=== PATIENT | female | born 1965 | race Caucasian/White ===

== ENCOUNTER → 2017-02-27 11:05 | Outpatient (CLI) | payer BC, SELFPAY | PROVIDERS: PCP Family Medicine; Visit Provider Family Medicine | DX: N39.0 Urinary tract infection, site not specified (principal) | CPT/HCPCS: 87086 ==

== ENCOUNTER → 2018-02-19 07:24 | Outpatient (CLI) | payer OTHER, BC, SELFPAY ==
[2018-02-20 10:58] LABS: Vitamin B12 463 pg/mL (232-1245); Vitamin D 25 Hydroxy 31.3 ng/mL (30.0-100.0)
== END ==
PROVIDERS: Visit Provider Nurse Practitioner Family
DX: R53.83 Other fatigue (principal)
CPT/HCPCS: 36415; 82607; 82652

== ENCOUNTER → 2018-04-16 15:18 | Outpatient (CLI) | payer OTHER, BC, SELFPAY ==
--- NOTE | 2018-04-16 15:23 | XR_ITS ---
XR chest 2V HISTORY: ITS.REASON: WHEEZING ORDERING PHYSICIAN: Samreen Chopra MD PATIENT AGE: 52 years COMPARISON: None FINDINGS: The cardiomediastinal silhouette and pulmonary vascularity are within normal limits. The lungs are clear without infiltrates, suspicious nodules, or pleural effusions. No acute bony abnormalities. IMPRESSION: Negative chest, no acute finding
== END ==
PROVIDERS: PCP Family Medicine; Visit Provider Emergency Medicine
DX: R06.2 Wheezing (principal)
CPT/HCPCS: 71046

== ENCOUNTER → 2018-04-22 08:21 | Outpatient (CLI) | payer OTHER, BC, SELFPAY ==
[2018-04-22 09:20] LABS: Basophils % 0.8 % (0.1-2.0); Eosinophils # 0.2 K/mm3 (0.0-0.4); Hematocrit 40.2 % (37.0-47.0); Lymphocytes # 1.3 K/mm3 (0.7-4.5); Lymphocytes % 29.3 % (10-50); Mean Corpuscular HGB Conc 32.2 g/dL (31.8-35.4); Mean Corpuscular Hemoglobin 30.3 pg (27.0-31.2); Mean Corpuscular Volume 94.1 fl (81-99); Monocytes # 0.2 K/mm3 (0.1-1.0); Monocytes % 5.3 % (1.7-9.3); Neutrophils # 2.5 K/mm3 (1.8-7.8); Neutrophils % 59.5 % (37.0-80.0); Platelet Count 193 K/mm3 (142-424); Red Blood Count 4.27 M/mm3 (4.20-5.40); Red Cell Distribution Width 13.5 % (11.5-17.5); White Blood Count 4.3 K/mm3 (4.8-10.8)
[2018-04-22 09:48] LABS: Blood Urea Nitrogen 19 mg/dL (7-18); Calcium 9.1 mg/dL (8.5-10.1); Carbon Dioxide 26 mmol/L (21.0-32.0); Chloride 105 mmol/L (98-107); Creatinine,Serum 0.63 mg/dL (0.55-1.02); Estimated Glomerular Filt Rate 100 ml/min (>60); GFR (African American) 121 ML/MIN (>60); Glucose 80 mg/dL (74-106); Sodium 142 mmol/L (136-145)
[2018-04-22 10:24] LABS: HCG Qualitative, Serum Negative (Negative)
== END ==
PROVIDERS: Visit Provider Nurse Practitioner Obstetrics & Gynecology
DX: Z01.818 Encounter for other preprocedural examination (principal); R87.613 High grade squamous intraepithelial lesion on cytologic smear of cervix (HGSIL)
CPT/HCPCS: 36415; 80048; 84703; 85025

== ENCOUNTER 2018-05-20 09:23 | Outpatient (CLI) | payer OTHER, BC, SELFPAY ==
[2018-05-20] VITALS (7 sets, daily range): BP systolic 87–132; BP diastolic 33–75; PULSE 56–78; RESP 18; TEMP 36.6; O2SAT 97–100; BMI 26.6
== END 2018-05-20 13:00 | disposition home or self-care (01) ==
LOC: INF 09:24
PROVIDERS: PCP Emergency Medicine; Visit Provider Emergency Medicine
DX: E86.0 Dehydration (principal)
CPT/HCPCS: 96360; 96361

== ENCOUNTER → 2018-06-28 10:18 | Outpatient (CLI) | payer OTHER, BC, SELFPAY | PROVIDERS: PCP Family Medicine; Visit Provider Family Medicine | DX: G47.10 Hypersomnia, unspecified (principal); R06.83 Snoring | CPT/HCPCS: 95806 ==

== ENCOUNTER → 2018-07-29 11:34 | Outpatient (CLI) | payer OTHER, BC, SELFPAY ==
[2018-07-29 13:08] LABS: Ferritin 85 ng/mL (8-388)
[2018-07-30 07:18] LABS: Iron 82 ug/dL (27-159); UIBC 242 ug/dL (131-425)
[2018-07-30 13:14] LABS: Albumin 3.8 g/dL (2.9-4.4); Alpha-1-Globulin 0.2 g/dL (0.0-0.4); Alpha-2-Globulin 0.7 g/dL (0.4-1.0); Gamma Globulin 1.2 g/dL (0.4-1.8)
[2018-07-30 14:13] LABS: Immunoglobulin A, Qn 236 mg/dL (87-352); Immunoglobulin G, Qn 1027 mg/dL (700-1600)
[2018-07-30 16:26] LABS: Free Kappa Lt Chains 13.9 mg/L (3.3-19.4); Free Lambda Lt Chains 12.1 mg/L (5.7-26.3)
[2018-07-30 20:50] LABS: Immunoglobulin M, Qn 75 mg/dL (26-217); Iron Saturation 25 % (15-55)
== END ==
PROVIDERS: Visit Provider Internal Medicine Medical Oncology
DX: D64.9 Anemia, unspecified (principal)
CPT/HCPCS: 36415; 82728; 82784; 83540; 83550; 83883; 84155; 84165; 86334

== ENCOUNTER → 2018-11-17 15:27 | Outpatient (CLI) | payer SELFPAY ==
--- NOTE | 2018-11-17 15:30 | CT_ITS ---
PROCEDURE: CT HEART W CALCIUM SCORE CLINICAL HISTORY: SCREENING COMPARISON: No exams were available for comparison TECHNIQUE: Axial images obtained with sagittal and coronal reformats. All CT scans at the facility use one or more dose reduction, viz: automated exposure control, ma/kV adjustment per patient size (including targeted exams where dose is matched to indication, i.e. head), or iterative reconstruction technique. FINDINGS: Coronary artery calcium score is 13 indicating mild plaque burden with moderate cardiovascular disease risk. Incidental findings include a small amount of fluid in the superior recess of the pericardium and along the lower and posterior aspect of the pericardium IMPRESSION: Mild plaque burden with moderate cardiovascular disease risk Dictated by: Jere Zaman MD 11/18/2018 11:53 Electronically signed by Jere Zaman MD in [place] 11/19/2018 13:27
== END ==
PROVIDERS: PCP Family Medicine; Visit Provider Internal Medicine Cardiovascular Disease
DX: Z13.6 Encounter for screening for cardiovascular disorders (principal)
CPT/HCPCS: 75571

== ENCOUNTER → 2018-11-30 15:41 | Outpatient (CLI) | payer OTHER, SELFPAY ==
--- NOTE | 2018-11-30 15:56 | MM_ITS ---
PROCEDURE: MM DIG SCREENING MAMM BI W/CAD CLINICAL INDICATION: SCREENING There is a history of breast cancer in the patient's maternal grandmother and maternal great grandmother. COMPARISON: MAMMO SCREENING DIGITAL TOMOSYNTHESIS BILATERAL W CAD from 10/31/2015 MAMMO SCREENING DIGITAL TOMOSYNTHESIS BILATERAL W CAD from 11/14/2016 MAMMO SCREENING DIGITAL TOMOSYNTHESIS BILATERAL W CAD from 12/31/2017 TECHNIQUE: Standard CC and MLO images were obtained. R2 CAD reviewed. FINDINGS: Prominent somewhat heterogenic fibroglandular densities are seen in both breasts. There is no new or suspicious lesion in either breast and no suspicious microcalcifications. There are stable small nodes in both axilla. IMPRESSION: Moderate diffuse breast density with no suspicious lesions seen BI-RAD Category: 1 Negative FOLLOW-UP: 1YR 1 Year Follow-up (A letter has been sent to the patient regarding results of the study.) Dictated by: Dr. Asa Ponce MD 12/03/2018 09:[address] Asa Ponce MD in [place] 12/03/2018 09:28
== END ==
PROVIDERS: PCP Family Medicine; Visit Provider Nurse Practitioner Obstetrics & Gynecology
DX: Z12.31 Encounter for screening mammogram for malignant neoplasm of breast (principal)
CPT/HCPCS: 77067

== ENCOUNTER → 2019-03-29 10:36 | Outpatient (POV) | payer OTHER, SELFPAY | PROVIDERS: Visit Provider Dermatology | DX: Z00.00 Encounter for general adult medical examination without abnormal findings (principal) ==

== ENCOUNTER → 2019-05-25 11:22 | Outpatient (CLI) | payer OTHER, BC, SELFPAY ==
--- NOTE | 2019-05-25 11:28 | XR_ITS ---
PROCEDURE: XR KNEE LT 4V CLINICAL INDICATION: left knee pain Weightbearing views were performed. COMPARISON: [id number] KNEE-4 OR 5 VIEWS-LT from 08/18/2016 [id number] KNEE-4 OR 5 VIEWS-RT from 08/18/2016 FINDINGS: No fracture or dislocation. No lytic or blastic change. There is normal mineralization. Mild tricompartmental osteoarthritis is again noted. It is not significantly changed. Other findings:A small suprapatellar joint effusion is noted. IMPRESSION: Osteoarthritis with small joint effusion. Dictated by: Gino Hill 05/25/2019 12:14 Electronically signed by Gino Hill in [place] 05/25/2019 12:14
--- NOTE | 2019-05-25 11:28 | XR_ITS ---
PROCEDURE: XR KNEE RT 4V CLINICAL INDICATION: right knee pain Weightbearing views were performed. COMPARISON: [id number] KNEE-4 OR 5 VIEWS-LT from 08/18/2016 [id number] KNEE-4 OR 5 VIEWS-RT from 08/18/2016 FINDINGS: No fracture or dislocation. No lytic or blastic change. There is normal mineralization. There is mild osteoarthritis greatest at the lateral patellofemoral facet. The previously described lateral patellar subluxation is not present today. Other findings:A small suprapatellar joint effusion is noted. IMPRESSION: Mild osteoarthritis with joint effusion appearance similar to previous exam. Dictated by: Gino Hill 05/25/2019 12:17 Electronically signed by Gino Hill in [place] 05/25/2019 12:17
== END ==
PROVIDERS: PCP Family Medicine; Visit Provider Orthopaedic Surgery
DX: M25.562 Pain in left knee (principal); M25.561 Pain in right knee
CPT/HCPCS: 73564

== ENCOUNTER → 2019-09-03 11:24 | Outpatient (CLI) | payer OTHER, BC, SELFPAY ==
[2019-09-03 11:56] LABS: White Blood Count 4.6 K/mm3 (4.8-10.8)
[2019-09-03 11:57] LABS: Basophils % 0.8 % (0.1-2.0); Eosinophils # 0.3 K/mm3 (0.0-0.4); Eosinophils % 5.9 % (0.1-12.0); Hematocrit 41.1 % (37.0-47.0); Hemoglobin 13.7 g/dL (12.2-16.2); Lymphocytes # 1.2 K/mm3 (0.7-4.5); Lymphocytes % 26.8 % (10-50); Mean Corpuscular HGB Conc 33.3 g/dL (31.8-35.4); Mean Corpuscular Hemoglobin 30.9 pg (27.0-31.2); Mean Corpuscular Volume 92.6 fl (81-99); Mean Platelet Volume 7.7 fl (7.4-10.4); Monocytes # 0.2 K/mm3 (0.1-1.0); Monocytes % 4.8 % (1.7-9.3); Neutrophils # 2.8 K/mm3 (1.8-7.8); Neutrophils % 61.7 % (37.0-80.0); Platelet Count 210 K/mm3 (142-424); Red Blood Count 4.44 M/mm3 (4.20-5.40)
[2019-09-03 12:28] LABS: Erythrocyte Sedimentation Rate 24 mm/hr (0-30)
[2019-09-03 12:29] LABS: Uric Acid 5.7 mg/dl (2.5-6.2)
[2019-09-03 12:34] LABS: C-Reactive Protein 1.5 mg/L (0-4)
[2019-09-06 06:38] LABS: RA Latex Turbid. <10.0 IU/mL (0.0-13.9)
[2019-09-06 06:46] LABS: Antinuclear Antibodies, IFA Positive (.)
== END ==
PROVIDERS: Visit Provider Family Medicine
DX: M25.50 Pain in unspecified joint (principal)
CPT/HCPCS: 36415; 84550; 85025; 85651; 86038; 86140; 86431

== ENCOUNTER → 2019-12-07 08:51 | Outpatient (CLI) | payer OTHER, BC, SELFPAY ==
--- NOTE | 2019-12-07 08:51 | MM_ITS ---
PROCEDURE: MM DIG SCREENING MAMM BI W/CAD Digital Breast Tomosynthesis Included CLINICAL INDICATION: Routine Screening Mammogram There is a history of breast cancer patient's maternal grandmother and maternal great grandmother. COMPARISON: MG MAMMO SCREENING DIGITAL TOMOSYNTHESIS BILATERAL W CAD from 11/14/2016 MG MAMMO SCREENING DIGITAL TOMOSYNTHESIS BILATERAL W CAD from 12/31/2017 MG MM DIG SCREENING MAMM BI W/CAD from 11/30/2018 TECHNIQUE: Standard CC and MLO images and 3D Tomosynthesis was obtained. R2 CAD reviewed. FINDINGS: Moderate scattered fibroglandular densities are seen throughout both breasts. There is a possible asymmetric lesion upper central portion right breast. This may have been present previously but is better seen with raciel views on the current exam. This could represent asymmetric glandular elements but recommend the patient return for spot compression views and ultrasound for additional evaluation. There are no suspicious microcalcifications. IMPRESSION: Moderate breast density with possible change in asymmetric lesion right breast BI-RAD Category: 0 Need Additional Imaging Evaluation FOLLOW-UP: IMM Immediate Follow-up Recommended (A letter has been sent to the patient regarding results of the study.) Dictated by: Dr. Asa Ponce MD 12/09/2019 07:59 Dr. Asa Ponce MD in [place] 12/09/2019 07:59
== END ==
PROVIDERS: PCP Family Medicine; Visit Provider Nurse Practitioner Obstetrics & Gynecology
DX: Z12.31 Encounter for screening mammogram for malignant neoplasm of breast (principal)
CPT/HCPCS: 77063; 77067

== ENCOUNTER → 2019-12-14 10:40 | Outpatient (CLI) | payer OTHER, BC, SELFPAY ==
--- NOTE | 2019-12-14 10:41 | MM_ITS ---
PROCEDURE: MM DIG MAMM DX UNILAT RT CAD Digital Breast Tomosynthesis Included CLINICAL INDICATION: abnormal xmg COMPARISON: MG MAMMO SCREENING DIGITAL TOMOSYNTHESIS BILATERAL W CAD from 12/31/2017 MG MM DIG SCREENING MAMM BI W/CAD from 11/30/2018 MG MM DIG SCREENING MAMM BI W/CAD from 12/07/2019 US US BREAST RT COMPLETE from 12/14/2019 TECHNIQUE: Standard CC and MLO images and 3D Tomosynthesis was obtained. R2 CAD reviewed. FINDINGS: Questionable asymmetric glandular elements versus developing mass appears to press out on the spot compression MLO and CC views. No definite suspicious lesion is identified. Ultrasound performed the same date showed no normal cystic or solid mass. IMPRESSION: Negative problem solving views and negative targeted ultrasound and recommend the patient continue with yearly screening mammography BI-RAD Category: 1 Negative FOLLOW-UP: 1YR 1 Year Follow-up (A letter has been sent to the patient regarding results of the study.) Dictated by: Dr. Asa Ponce MD 12/17/2019 19:20 Dr. Asa Ponce MD in [place] 12/17/2019 19:20
--- NOTE | 2019-12-14 10:41 | US_ITS ---
PROCEDURE: US BREAST RT COMPLETE CLINICAL INDICATION: abnormal xmg COMPARISON: No exams were available for comparison FINDINGS: Scanning of the right breast in the area of possible asymmetric developing density shows normal appearing echogenicity with no evidence of abnormal cystic or solid mass or evidence of architectural distortion. There are couple normal appearing nodes in the axilla. IMPRESSION: Negative targeted ultrasound, continue with yearly screening mammography Dictated by: Dr. Asa Ponce MD 12/17/2019 19:22 Dr. Asa Ponce MD in [place] 12/17/2019 19:22
== END ==
PROVIDERS: PCP Family Medicine; Visit Provider Nurse Practitioner Obstetrics & Gynecology
DX: R92.8 Other abnormal and inconclusive findings on diagnostic imaging of breast (principal)
CPT/HCPCS: 76641; 77061; 77065; G0279

== ENCOUNTER → 2020-01-20 08:09 | Outpatient (CLI) | payer OTHER, BC, SELFPAY ==
[2020-01-20 09:56] LABS: Coronavirus 19 IgG Antibody Negative (Negative); Coronavirus 19 IgM Antibody Negative (Negative)
== END ==
PROVIDERS: Visit Provider Anesthesiology
DX: Z03.818 Encounter for observation for suspected exposure to other biological agents ruled out (principal)
CPT/HCPCS: 86328

== ENCOUNTER → 2020-03-05 07:41 | Outpatient (CLI) | payer OTHER, BC, SELFPAY ==
[2020-03-09 12:17] LABS: F001-IgE Egg White <0.10 kU/L (Class 0); F002-IgE Milk <0.10 kU/L (Class 0); F003-IgE Codfish <0.10 kU/L (Class 0); F004-IgE Wheat <0.10 kU/L (Class 0); F013-IgE Peanut <0.10 kU/L (Class 0); F014-IgE Soybean <0.10 kU/L (Class 0); F024-IgE Shrimp <0.10 kU/L (Class 0); F256-IgE Walnut <0.10 kU/L (Class 0); F338-IgE Scallop <0.10 kU/L (Class 0)
[2020-03-09 12:45] LABS: F010-IgE Sesame Seed 0.12 kU/L (Class 0/I)
== END ==
PROVIDERS: Visit Provider Internal Medicine Gastroenterology
DX: T78.1XXA Other adverse food reactions, not elsewhere classified, initial encounter (principal)
CPT/HCPCS: 86003; 86008

== ENCOUNTER → 2020-06-01 06:58 | Outpatient (CLI) | payer OTHER, BC, SELFPAY ==
[2020-06-01 07:12] LABS: Basophils % 0.9 % (0.1-2.0); Eosinophils # 0.2 K/mm3 (0.0-0.4); Eosinophils % 3.9 % (0.1-12.0); Hematocrit 41.3 % (37.0-47.0); Hemoglobin 13.9 g/dL (12.2-16.2); Lymphocytes # 1.7 K/mm3 (0.7-4.5); Lymphocytes % 34.8 % (10-50); Mean Corpuscular HGB Conc 33.6 g/dL (31.8-35.4); Mean Corpuscular Hemoglobin 30.1 pg (27.0-31.2); Mean Corpuscular Volume 89.4 fl (81-99); Mean Platelet Volume 8.1 fl (7.4-10.4); Monocytes # 0.3 K/mm3 (0.1-1.0); Monocytes % 5.4 % (1.7-9.3); Neutrophils # 2.6 K/mm3 (1.8-7.8); Platelet Count 219 K/mm3 (142-424); Red Blood Count 4.61 M/mm3 (4.20-5.40); Red Cell Distribution Width 13.1 % (11.5-17.5); White Blood Count 4.8 K/mm3 (4.8-10.8)
[2020-06-01 07:49] LABS: Chloride 104 mmol/L (98-107); Potassium 3.8 mmoL/L (3.5-5.1); Sodium 141 mmol/L (136-145)
[2020-06-01 07:52] LABS: Alanine Aminotransferase 19 U/L (12-78); Albumin Level 4.4 g/dl (3.5-5.0); Albumin/Globulin Ratio 1.6 (1.1-1.8); Alkaline Phosphatase 76 U/L (38-126); Anion Gap 13.8 mEq/L (5-15); Aspartate Amino Transferase 23 U/L (14-36); Bilirubin,Total 0.5 mg/dl (0.2-1.3); Blood Urea Nitrogen 22 mg/dl (7-17); Calcium 9.7 mg/dl (8.4-10.2); Carbon Dioxide 27 mmol/L (22.0-30.0); Cholesterol 205 mg/dl (140-200); Estimated Glomerular Filt Rate 47 ml/min (>60); GFR (African American) 57 ML/MIN (>60); Globulin 2.7 g/dL (1.3-3.2); Glucose 91 mg/dl (74-100); Total Protein,Serum 7.1 g/dl (6.3-8.2); Triglycerides 99 mg/dl (30-150); VLDL Cholesterol 20 mg/dL (0-40)
[2020-06-01 07:53] LABS: Chol/HDL Ratio 3.3 (1-3.5); HDL Cholesterol 63 mg/dl (40-60)
[2020-06-01 08:03] LABS: Direct LDL Cholesterol 105.51 mg/dL (100-129)
[2020-06-01 08:23] LABS: Thyroid Stimulating Hormone 3.18 uIU/mL (0.465-4.68)
== END ==
PROVIDERS: Visit Provider Family Medicine
DX: R42 Dizziness and giddiness (principal); I10 Essential (primary) hypertension; R60.0 Localized edema
CPT/HCPCS: 36415; 80053; 80061; 84443; 85025

== ENCOUNTER → 2020-06-13 07:28 | Outpatient (CLI) | payer OTHER, BC, SELFPAY ==
--- NOTE | 2020-06-13 | CA_ITS ---
APPROVED REPORT EXAM: Comprehensive 2D, Doppler, and color-flow Echocardiogram Informatics Application Analyst: Elaina Pedroza RT(R) Ht: 5 ft 8 in Wt: 185lbs BSA: 1.98 BP: 128/86 mmHg Indications: Edema, arrhythmia, cardiac CT showed mild plaque with moderate CV risk 2D Dimensions LVOT 2.10 cm (M/F) 1.5-2.5 LA Volume 27.10 mL LA Volume Index 13.75 mL/m2 (M/F) 16-34 M-Mode Dimensions RVDd 3.15 cm (0.9-2.6) LA Diam 3.32 cm (1.9-4.0) LVDd 4.70 cm (3.5-5.7) Ao Diam 3.16 cm (2.0-3.7) LVDs 3.53 cm (3.5-5.7) IVSd 0.61 cm (0.6-1.1) PWd 0.91 cm (0.6-1.1) EF (Teich) 49.30% FS 24.90% EDV (Teich) 102.40 mL ESV (Teich) 51.90 mL LV Diastology E Decel Time 173.00 (160-240 msec) E/A Ratio 0.6 MED E' 4.80 (< 7 cm/sec) E'/MED E' Ratio 10.98 (>14) LAT E' 15.00 (<10 cm/sec) E/LAT E' Ratio 3.51 (>14) Mitral Valve MV E Max Tian. 53.00 (40-130 cm/s) MV A Velocity 92.00 (40-130 cm/s) E/A Ratio 0.57 MV Decel. Time 173.00 (160-240 ms) MV PHT 51.00 ms Left Ventricle Left atrium is mildly enlarged, left ventricle is normal size, left ventricle wall thickness is upper limit of normal size, there is preserved left ventricular systolic function, visually estimated ejection fraction 55% with no regional wall motion abnormality, Doppler evidence of impaired LV relaxation, without tissue Doppler indication of raise left atrial pressure. Right Ventricle Right atrium is normal size, right ventricle is qualitatively mildly enlarged with normal contractility. Aortic Valve Aortic valve is grossly normal, there is no aortic stenosis or aortic insufficiency. Mitral Valve Mitral valve is grossly normal, there is trace mitral regurgitation. Tricuspid Valve Tricuspid grossly normal, there is trace tricuspid regurgitation, tricuspid regurgitation jet velocity is inadequate for calculation of the right ventricular systolic pressure. Pulmonic Valve Pulmonic valve is poorly visualized. Great Vessels Aortic root is normal size. Pericardium No significant pericardial effusion noted. Conclusion 1. Mildly enlarged left atrium normal left ventricular size, visually estimated ejection fraction 55% with no regional wall motion abnormality, Doppler evidence of impaired LV relaxation seen. 2. Mildly enlarged right ventricle with normal contractility. 3. Trace mitral and tricuspid regurgitation. 4. No significant pericardial effusion noted. Electronically signed by : Finn Ayon, 06/14/2020 13:28:56
== END ==
PROVIDERS: PCP Family Medicine; Visit Provider Family Medicine
DX: R60.9 Edema, unspecified (principal); I49.9 Cardiac arrhythmia, unspecified; R94.39 Abnormal result of other cardiovascular function study
CPT/HCPCS: 93306

== ENCOUNTER → 2020-06-15 15:07 | Outpatient (CLI) | payer OTHER, BC, SELFPAY | PROVIDERS: PCP Family Medicine; Visit Provider Family Medicine | DX: I49.9 Cardiac arrhythmia, unspecified (principal) | CPT/HCPCS: 93225; 93226 ==

== ENCOUNTER → 2020-06-22 15:25 | Outpatient (CLI) | payer OTHER, BC, SELFPAY ==
--- NOTE | 2020-06-22 15:27 | US_ITS ---
PROCEDURE: US TRANSVAGINAL CLINICAL INDICATION: pelvic pain COMPARISON: No exams were available for comparison FINDINGS: UTERUS: 7cm x 5cmx 4cm with a combined endometrial thickness of 3.3mm LEFT OVARY: [id number] with a volume of 1.1ml. RIGHT OVARY: [id number] with a volume of 0.8ml. There is a small amount fluid within the endometrium measuring 3 mm in thickness. There is a nabothian cyst at 13 mm. Small right ovarian cyst at 12 mm. No cul-de-sac fluid. IMPRESSION: Prominent nabothian cyst with a small amount fluid in the endometrium and a small right ovarian cyst Dictated by: Jere Zaman MD 06/22/2020 16:34 Jere Zaman MD in [place] 06/22/2020 16:34
== END ==
PROVIDERS: PCP Family Medicine; Visit Provider Nurse Practitioner Obstetrics & Gynecology
DX: R10.2 Pelvic and perineal pain (principal)
CPT/HCPCS: 76830

== ENCOUNTER → 2020-07-03 13:25 | Outpatient (CLI) | payer OTHER, BC, SELFPAY ==
--- NOTE | 2020-07-03 14:16 | CA_ITS ---
APPROVED REPORT Exam: Exercise Treadmill Technologist: Bhakti Noble, Ht: 5 ft 8 in Wt: 189 lbs BSA: 1.99 m2 HR: 57 bpm BP: 144/82 mmHg Medical History Medications: Omeprazole,,,,, Aspirin,,,,, Citalopram,,,,, Crestor,,,,, ZYRTEC,,,,, PropANOLOL,,,,, Aldactone,,,,, Stress Test Details Test: Edouard HR Resting HR: 62 bpm Max Heart Rate (APMHR): 166.484932 bpm Max HR Achieved: 138 bpm Target HR (85% APMHR): 141.953804 bpm % of APMHR: 83.13 Recovery HR: 76 bpm BP Resting BP: 137/83 mmHg Max BP: 164/84 mmHg Recovery BP: 124.0/74.0 mmHg ECG Resting ECG: NSR, normal Clinical Exercise duration: 08:04 min Highest Stage Achieved: Exercise capacity: 10.1 METs Stress ECG Conclusion Exercised 8:04 on Edouard Protocol Max HR: 138 % of PM: 83% Max BP: 164/84 MET's: 10.1 Test stopped due to: SOA, dizziness Symptoms: SOA, dizziness Arrhythmias/Ectopy: Occ isolated PVC. ST-T Changes: 0.5mm upsloping ST depression laterally. Conclusion: within normal GXT. Blunted HR on Propranolol. GXT only (no imaging). Test Summary RECOVERY 01:00 0.0 0.0 103 . 164/ 84 . Stop exercise at 08:04 REST 03:53 0.0 0.0 62 . 137/ 83 . . Stage 1 01:00 10.0 1.7 87 . . . . Stage 1 02:00 10.0 1.7 105 . . . . Stage 1 03:00 10.0 1.7 108 . 135/ 80 . . Stage 2 01:00 12.0 2.5 117 . . . . Stage 2 02:00 12.0 2.5 125 . . . . Stage 2 03:00 12.0 2.5 129 . 140/ 76 . . Stage 3 01:00 14.0 3.4 135 . . . . Stage 3 02:00 14.0 3.4 137 . . . . Stage 3 02:04 14.0 3.4 138 . . . Stop exercise at 08:04 RECOVERY 01:00 0.0 0.0 103 . 164/ 84 . . RECOVERY 02:00 0.0 0.0 79 . 164/ 84 . . RECOVERY 03:00 0.0 0.0 73 . 153/ 78 . . RECOVERY 04:00 0.0 0.0 78 . 131/ 78 . . RECOVERY 05:00 0.0 0.0 75 . 124/ 74 . . RECOVERY 05:17 0.0 0.0 77 . 124/ 74 . . Electronically signed by : Finn Ayon, 07/03/2020 21:34:32
== END ==
PROVIDERS: PCP Family Medicine; Visit Provider Internal Medicine Cardiovascular Disease
DX: R06.00 Dyspnea, unspecified (principal); I51.7 Cardiomegaly; R00.2 Palpitations
CPT/HCPCS: 93017

== ENCOUNTER → 2020-07-05 08:14 | Outpatient (CLI) | payer OTHER, BC, SELFPAY ==
[2020-07-05 08:28] LABS: Anion Gap 9.2 mEq/L (5-15); Blood Urea Nitrogen 14 mg/dl (7-17); Calcium 9.2 mg/dl (8.4-10.2); Carbon Dioxide 29 mmol/L (22.0-30.0); Chloride 106 mmol/L (98-107); Estimated Glomerular Filt Rate 75 ml/min (>60); GFR (African American) 90 ML/MIN (>60); Glucose 96 mg/dl (74-100); Magnesium 2.2 mg/dl (1.6-2.3); Potassium 4.2 mmoL/L (3.5-5.1); Sodium 140 mmol/L (136-145)
== END ==
PROVIDERS: Visit Provider Internal Medicine Cardiovascular Disease
DX: I25.10 Atherosclerotic heart disease of native coronary artery without angina pectoris (principal); R06.00 Dyspnea, unspecified; R00.2 Palpitations; I49.8 Other specified cardiac arrhythmias; I51.7 Cardiomegaly; R60.0 Localized edema; G47.33 Obstructive sleep apnea (adult) (pediatric)
CPT/HCPCS: 80048; 83735

== ENCOUNTER → 2020-07-27 08:43 | Outpatient (CLI) | payer OTHER, BC, SELFPAY ==
[2020-07-27 09:11] LABS: Chloride 105 mmol/L (98-107); Sodium 141 mmol/L (136-145)
[2020-07-27 09:14] LABS: Blood Urea Nitrogen 18 mg/dl (7-17); Calcium 9.3 mg/dl (8.4-10.2); Carbon Dioxide 28 mmol/L (22.0-30.0); Estimated Glomerular Filt Rate 75 ml/min (>60); GFR (African American) 90 ML/MIN (>60); Glucose 95 mg/dl (74-100)
== END ==
PROVIDERS: Visit Provider Internal Medicine Cardiovascular Disease
DX: I10 Essential (primary) hypertension (principal)
CPT/HCPCS: 80048

== ENCOUNTER → 2020-08-17 20:07 | Outpatient (CLI) | payer OTHER, BC, SELFPAY | PROVIDERS: PCP Family Medicine; Visit Provider Nurse Practitioner Family | DX: G47.30 Sleep apnea, unspecified (principal); G47.8 Other sleep disorders; R09.02 Hypoxemia | CPT/HCPCS: 95810 ==

== ENCOUNTER → 2020-09-05 09:40 | Outpatient (CLI) | payer OTHER, BC, SELFPAY ==
[2020-09-05 10:37] LABS: Anion Gap 13.7 mEq/L (5-15); Blood Urea Nitrogen 20 mg/dl (7-17); Calcium 9.4 mg/dl (8.4-10.2); Carbon Dioxide 25 mmol/L (22.0-30.0); Chloride 105 mmol/L (98-107); Estimated Glomerular Filt Rate 65 ml/min (>60); GFR (African American) 79 ML/MIN (>60); Glucose 95 mg/dl (74-100); Potassium 4.7 mmoL/L (3.5-5.1); Sodium 139 mmol/L (136-145)
[2020-09-05 10:47] LABS: NT Pro Brain Natriuretic Pep. 233 pg/mL (0-125)
== END ==
PROVIDERS: Visit Provider Internal Medicine Cardiovascular Disease
DX: R06.00 Dyspnea, unspecified (principal); R00.2 Palpitations; R60.0 Localized edema; I25.10 Atherosclerotic heart disease of native coronary artery without angina pectoris; M79.10 Myalgia, unspecified site; G47.33 Obstructive sleep apnea (adult) (pediatric)
CPT/HCPCS: 36415; 80048; 83880

== ENCOUNTER → 2020-09-10 15:48 | Outpatient (CLI) | payer OTHER, BC, SELFPAY | PROVIDERS: PCP Family Medicine; Visit Provider Specialist | DX: G47.33 Obstructive sleep apnea (adult) (pediatric) (principal); G47.10 Hypersomnia, unspecified | CPT/HCPCS: 94762 ==

== ENCOUNTER → 2020-09-20 13:18 | Outpatient (CLI) | payer OTHER, BC, SELFPAY ==
--- NOTE | 2020-09-20 13:22 | XR_ITS ---
PROCEDURE: XR CHEST 2V CLINICAL HISTORY: nocturnal hypoxemia COMPARISON: CR CXR2V XR chest 2V from 04/16/2018 FINDINGS: The cardiomediastinal silhouette and pulmonary vascularity are within normal limits. The lungs are clear without infiltrates, suspicious nodules, or pleural effusions. No acute bony abnormalities. IMPRESSION: No acute findings. Dictated by: Jere Zaman MD 09/20/2020 13:33 Jere Zaman MD in [place] 09/20/2020 13:33
== END ==
PROVIDERS: PCP Family Medicine; Visit Provider Nurse Practitioner Family
DX: G47.36 Sleep related hypoventilation in conditions classified elsewhere (principal); G47.33 Obstructive sleep apnea (adult) (pediatric); G47.34 Idiopathic sleep related nonobstructive alveolar hypoventilation; R00.2 Palpitations; I49.8 Other specified cardiac arrhythmias; I51.7 Cardiomegaly
CPT/HCPCS: 71046

== ENCOUNTER → 2020-10-08 15:28 | Outpatient (CLI) | payer OTHER, BC, SELFPAY | PROVIDERS: PCP Family Medicine; Visit Provider Nurse Practitioner Family | DX: G47.33 Obstructive sleep apnea (adult) (pediatric) (principal); G47.34 Idiopathic sleep related nonobstructive alveolar hypoventilation; I49.8 Other specified cardiac arrhythmias; I51.7 Cardiomegaly; R00.2 Palpitations | CPT/HCPCS: 94060; 94726; 94729 ==

== ENCOUNTER → 2020-10-23 05:00 | Outpatient (CLI) | payer OTHER, BC, SELFPAY ==
[2020-10-24 12:41] LABS: Chloride 107 mmol/L (98-107); Potassium 4.3 mmoL/L (3.5-5.1); Sodium 142 mmol/L (136-145)
[2020-10-24 12:44] LABS: Anion Gap 15.3 mEq/L (5-15); Blood Urea Nitrogen 18 mg/dl (7-17); Calcium 9.4 mg/dl (8.4-10.2); Carbon Dioxide 24 mmol/L (22.0-30.0); Estimated Glomerular Filt Rate 65 ml/min (>60); GFR (African American) 79 ML/MIN (>60); Glucose 96 mg/dl (74-100)
[2020-10-24 12:53] LABS: NT Pro Brain Natriuretic Pep. 188 pg/mL (0-125)
== END ==
PROVIDERS: Visit Provider Internal Medicine Cardiovascular Disease
DX: R06.02 Shortness of breath (principal); I25.10 Atherosclerotic heart disease of native coronary artery without angina pectoris; I50.9 Heart failure, unspecified; R60.9 Edema, unspecified; G47.33 Obstructive sleep apnea (adult) (pediatric)
CPT/HCPCS: 80048; 83880

== ENCOUNTER → 2020-11-02 13:22 | Outpatient (CLI) | payer OTHER, BC, SELFPAY | PROVIDERS: Visit Provider Specialist | DX: G47.10 Hypersomnia, unspecified (principal) | CPT/HCPCS: 36415 ==

== ENCOUNTER → 2020-11-13 08:58 | Outpatient (CLI) | payer OTHER, BC, SELFPAY ==
[2020-11-13 21:21] LABS: Chloride 106 mmol/L (98-107); Potassium 4.1 mmoL/L (3.5-5.1); Sodium 141 mmol/L (136-145)
[2020-11-13 21:24] LABS: Anion Gap 17.1 mEq/L (5-15); Blood Urea Nitrogen 17 mg/dl (7-17); Carbon Dioxide 22 mmol/L (22.0-30.0); Estimated Glomerular Filt Rate 65 ml/min (>60); GFR (African American) 79 ML/MIN (>60)
[2020-11-13 21:25] LABS: Calcium 9.5 mg/dl (8.4-10.2); Glucose 97 mg/dl (74-100)
[2020-11-13 21:34] LABS: NT Pro Brain Natriuretic Pep. 131 pg/mL (0-125)
== END ==
PROVIDERS: Visit Provider Internal Medicine Cardiovascular Disease
DX: R06.02 Shortness of breath (principal); R00.2 Palpitations; I25.10 Atherosclerotic heart disease of native coronary artery without angina pectoris; R60.9 Edema, unspecified
CPT/HCPCS: 36415; 80048; 83880

== ENCOUNTER → 2020-11-13 09:13 | Outpatient (POV) | payer OTHER, BC, SELFPAY | PROVIDERS: Visit Provider Dermatology | DX: Z00.00 Encounter for general adult medical examination without abnormal findings (principal) ==

== ENCOUNTER → 2020-12-27 08:35 | Outpatient (CLI) | payer OTHER, BC, SELFPAY ==
--- NOTE | 2020-12-27 08:43 | MR_ITS ---
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 FINDINGS: No midline shift, mass effect, intracranial hemorrhage, or hydrocephalus is evident. No evidence of acute infarction. The cerebellopontine angles, cerebellum, and brainstem have an unremarkable appearance. There are a few small T2 white matter hyperintensities which are nonspecific. These do not enhance or demonstrate restricted diffusion. No enhancing lesions. No evidence of metastatic disease. The pituitary, optic chiasm, corpus callosum, and craniocervical junction have an unremarkable appearance. No mastoid effusion or sinus air-fluid level. IMPRESSION: Essentially negative MRI of the brain without and with contrast No evidence of metastatic disease There are few T2 white matter hyperintensities which are nonspecific and may be due to small ischemic gliotic foci Dictated by: Jere Zaman MD 12/28/2020 16:58 Jere Zaman MD in [place] 12/28/2020 16:58
== END ==
PROVIDERS: PCP Family Medicine; Visit Provider Nurse Practitioner Family
DX: G47.10 Hypersomnia, unspecified (principal); G47.50 Parasomnia, unspecified; R68.89 Other general symptoms and signs; Z85.41 Personal history of malignant neoplasm of cervix uteri
CPT/HCPCS: 70553; 95816; 95819; A9576

== ENCOUNTER → 2021-01-11 08:32 | Outpatient (CLI) | payer OTHER, BC, SELFPAY ==
[2021-01-11 09:24] LABS: Anion Gap 11.4 mEq/L (5-15); Blood Urea Nitrogen 17 mg/dl (7-17); Calcium 9.3 mg/dl (8.4-10.2); Carbon Dioxide 30 mmol/L (22.0-30.0); Chloride 103 mmol/L (98-107); Estimated Glomerular Filt Rate 65 ml/min (>60); GFR (African American) 79 ML/MIN (>60); Glucose 96 mg/dl (74-100); Potassium 4.4 mmoL/L (3.5-5.1); Sodium 140 mmol/L (136-145)
== END ==
PROVIDERS: Visit Provider Nurse Practitioner Family
DX: R06.02 Shortness of breath (principal); R07.89 Other chest pain; R00.2 Palpitations; I25.10 Atherosclerotic heart disease of native coronary artery without angina pectoris; R60.9 Edema, unspecified; G47.33 Obstructive sleep apnea (adult) (pediatric)
CPT/HCPCS: 36415; 80048

== ENCOUNTER → 2021-02-12 14:59 | Outpatient (CLI) | payer OTHER, BC, SELFPAY ==
--- NOTE | 2021-02-12 15:00 | CA_ITS ---
APPROVED REPORT Bilateral Lower Extremity Venous Study for DVT. Clinical Informatics Director: JOSE GrafT Indications Lower Extremity Edema: Bilateral edema Medications Aspirin Vein Imaging CFV (R): compressive, spontaneous, phasic, augmentation FEM (R): compressive, spontaneous, phasic, augmentation POP (R): compressive, spontaneous, phasic, augmentation PTV (R): Compressible GSV (R): Compressible Peroneals (R):Compressible GAS (R): Compressible CFV (L): compressive, spontaneous, phasic, augmentation FEM (L): compressive, spontaneous, phasic, augmentation POP (L): compressive, spontaneous, phasic, augmentation PTV (L): Compressible GSV (L): Compressible Peroneals (L):Compressible GAS (L): Partially Compressible Findings Study suggests no evidence of DVT or SVT of the bilateral lower extremites. Conclusion Study suggests no evidence of DVT or SVT of the bilateral lower extremites. Electronically signed by : Jere Zaman MD 02/12/2021 17:37:32
== END ==
PROVIDERS: PCP Family Medicine; Visit Provider Urology
DX: R60.0 Localized edema (principal)
CPT/HCPCS: 93970

== ENCOUNTER → 2021-04-30 07:00 | Outpatient (CLI) | payer OTHER, BC, SELFPAY ==
[2021-04-30 08:17] LABS: Alanine Aminotransferase 24 U/L (12-78); Albumin Level 4.4 g/dl (3.5-5.0); Alkaline Phosphatase 78 U/L (38-126); Aspartate Amino Transferase 26 U/L (14-36); Bilirubin,Direct 0.1 mg/dl (0.0-0.4); Bilirubin,Indirect 0.3 mg/dL (0.0-0.9); Bilirubin,Total 0.4 mg/dl (0.2-1.3); Bilirubin,Unconjugated 0.3 mg/dL (0.0-1.1); Chol/HDL Ratio 2.7 (1-3.5); Cholesterol 122 mg/dl (140-200); HDL Cholesterol 46 mg/dl (40-60); Total Protein,Serum 7.1 g/dl (6.3-8.2); Triglycerides 81 mg/dl (30-150); VLDL Cholesterol 16 mg/dL (0-40)
[2021-04-30 08:30] LABS: Direct LDL Cholesterol 48.44 mg/dL (100-129)
== END ==
PROVIDERS: Visit Provider Physician Assistant
DX: R07.89 Other chest pain (principal); R06.02 Shortness of breath; R00.2 Palpitations; I25.10 Atherosclerotic heart disease of native coronary artery without angina pectoris; R60.9 Edema, unspecified; G47.33 Obstructive sleep apnea (adult) (pediatric)
CPT/HCPCS: 36415; 80061; 80076

== ENCOUNTER → 2021-07-09 05:52 | Outpatient (CLI) | payer OTHER, BC, SELFPAY ==
--- NOTE | 2021-07-09 09:02 | MR_ITS ---
FINAL REPORT CLINICAL HISTORY: LOWER BACK PAIN X 2WEEKS BACK FEELS INSTABLE FINDINGS: Multiplanar MR imaging of the lumbar spine was performed without contrast. On the sagittal T2-weighted images, disc degeneration is seen throughout. There is mild retrolisthesis of L2 on 3, L3 on 4, and L4 on 5. There is no evidence of fracture. The conus has an unremarkable appearance. T11-12: An annular bulge is present. There is a small left foraminal disc protrusion with mild left neural foraminal narrowing. There is no significant canal stenosis or neural foraminal narrowing. L1-2: An annular bulge is present. There is a small left foraminal disc protrusion. There is no significant canal stenosis or neural foraminal narrowing. L2-3: An annular bulge is present with mild bilateral neural foraminal narrowing. L3-4: An annular bulge is present. There is a left foraminal disc protrusion with mild right and moderate left neural foraminal narrowing. L4-5: An annular bulge is present with moderate right and mild left neural foraminal narrowing. L5-S1: An annular bulge and osteophytes are present. There is mild right and moderate left neural foraminal narrowing. IMPRESSION: Left foraminal disc protrusions at T11-12, L1-2, and L3-4. Multilevel degenerative disc disease and spondylosis. Reviewed, Interpreted and Dictated by Reji Puri III, MD Transcribed by Georgette Lopez Authenticated by Reji Puri III, MD on 07/09/2021 11:12:13 AM [facility]
== END ==
PROVIDERS: PCP Family Medicine; Visit Provider Student in an Organized Health Care Education/Training Program
DX: M54.50 Low back pain, unspecified (principal)
CPT/HCPCS: 72148; 76376

== ENCOUNTER 2021-07-12 08:31 | Day surgery (SDC) | payer OTHER, BC, SELFPAY ==
[2021-07-12 08:35] VITALS: BP 130/81; PULSE 61; RESP 18; O2SAT 98; BMI 32.2
[2021-07-12 08:59] VITALS: BP 151/107; PULSE 65; RESP 18; O2SAT 97
[2021-07-12 09:00] VITALS: BP 151/107; PULSE 66; RESP 18; O2SAT 98
--- NOTE | 2021-07-12 09:05 | [facility].PMPROC ---
- Procedure Date: 07/12/21 Time: 09:05 Anesthesiologist:: Jeremie Arciniega CRNA Complications:: None Pre-procedure Diagnosis:: . Degenerative disc disease lumbar spine. Disc bulge multilevel lumbar spine. Bar radiculopathy bilateral hips, bilateral legs. Post-procedure Diagnosis:: Same Indications for Procedure:: Very pleasant 56-year-old white female that reports to our clinic today for lumbar epidural steroid injection at the 3 4 level. She is status post bilateral SI joint injections with some degree of success in the lumbar posterior back pain. However, still having the intense lumbar pain as well as bilateral hip and leg radicular symptoms. We will give her a lumbar epidural steroid injection at the L3-4 level. Procedure Details:: Procedure: Lumbar epidural steroid injection under fluoroscopy Informed consent was obtained and the risks and benefits of the procedure were explained to the patient. The patient was taken to the procedure room and noninvasive monitors placed, including noninvasive blood pressure cuff and pulse oximeter. The back was viewed using C-arm Fluoroscopy and prepped using Betadine as a cleansing solution and the L4-L5 interspace was palpated. Skin and subcutaneous tissues were anesthetized using lidocaine 1.5% and a 25-gauge needle. After this, an 18-gauge Touhy epidural needle was placed into the L4-L5 interspace and advanced using fluoroscopic guidance and loss of resistance to air until the epidural space was encountered. After confirmation of needle placement in the epidural space, with dye, a solution containing lidocaine 1.5%, 4 mL and Depo-Medrol 80 mg were incrementally injected into the lumbar epidural space. The patient tolerated the procedure well with no complications. The patient was observed in the Pain Clinic and then discharged home neurologically intact. Plan and Disposition:: Patient was discharged without incident.
[2021-07-12 09:15] VITALS: BP 130/81; PULSE 61; RESP 20; O2SAT 98
== END 2021-07-12 09:15 | disposition home or self-care (01) ==
LOC: SC.PAINP 08:31
PROVIDERS: PCP Family Medicine; Visit Provider Nurse Anesthetist, Certified Registered
DX: M51.16 Intervertebral disc disorders with radiculopathy, lumbar region (principal)
CPT/HCPCS: 62323; J1040

== ENCOUNTER → 2021-08-23 08:22 | Outpatient (CLI) | payer OTHER, BC, SELFPAY | PROVIDERS: PCP Family Medicine; Visit Provider Family Medicine | DX: Z20.822 Contact with and (suspected) exposure to COVID-19 (principal) | CPT/HCPCS: C9803; U0003; U0005 ==

== ENCOUNTER → 2022-01-22 16:04 | Outpatient (CLI) | payer OTHER, BC, SELFPAY ==
--- NOTE | 2022-01-22 16:04 | MM_ITS ---
PROCEDURE INFORMATION: Exam: MG Bilateral Screening 3D Mammography Exam date and time: 01/22/2022 3:59 PM Age: 56 years old Clinical indication: Screening. Her maternal grandmother and great grandmother had breast cancer. TECHNIQUE: Imaging protocol: Bilateral Screening tomosynthesis and 2D mammography including computer-aided detection (CAD) when performed. COMPARISON: 1. MG MM DIG MAMM DX UNILAT RT CAD 12/14/2019 1:00 PM 2. MG MM DIG SCREENING MAMM BI W/CAD 12/07/2019 9:19 AM 3. MG MM DIG SCREENING MAMM BI W/CAD 11/30/2018 3:58 PM 4. MG MAMMO SCREENING DIGITAL TOMOSYNTHESIS BILATERAL W CAD 12/31/2017 3:53 PM FINDINGS: MAMMOGRAPHY: Breast composition: There are scattered areas of fibroglandular density. Mass: None. Architectural distortion: None. Calcifications: No suspicious calcifications. Asymmetric density: None. Skin thickening: None. Axillary adenopathy: None. IMPRESSION: No mammographic evidence of malignancy. Annual screening is recommended unless otherwise clinically indicated. ASSESSMENT: BI-RADS Category 1: Negative
== END ==
PROVIDERS: PCP Family Medicine; Visit Provider Nurse Practitioner Obstetrics & Gynecology
DX: Z12.31 Encounter for screening mammogram for malignant neoplasm of breast (principal)
CPT/HCPCS: 77063; 77067

== ENCOUNTER → 2022-11-07 06:10 | Outpatient (CLI) | payer OTHER, BC, SELFPAY ==
[2022-11-07 08:06] LABS: Basophils # 0.1 K/mm3 (0-0.2); Basophils % 0.8 % (0.1-2.0); Eosinophils # 0.3 K/mm3 (0.0-0.4); Eosinophils % 4.4 % (0.1-12.0); Hematocrit 42.4 % (37.0-47.0); Hemoglobin 13.7 g/dL (12.2-16.2); Lymphocytes # 1.4 K/mm3 (0.7-4.5); Lymphocytes % 23.8 % (10-50); Mean Corpuscular HGB Conc 32.2 g/dL (31.8-35.4); Mean Corpuscular Hemoglobin 28.4 pg (27.0-31.2); Mean Corpuscular Volume 88.1 fl (81-99); Mean Platelet Volume 8.6 fl (7.4-10.4); Monocytes # 0.3 K/mm3 (0.1-1.0); Monocytes % 5.8 % (1.7-9.3); Neutrophils # 3.8 K/mm3 (1.8-7.8); Neutrophils % 65.2 % (37.0-80.0); Platelet Count 237 K/mm3 (142-424); Red Blood Count 4.81 M/mm3 (4.20-5.40); Red Cell Distribution Width 13.7 % (11.5-17.5); White Blood Count 5.9 K/mm3 (4.8-10.8)
[2022-11-07 08:47] LABS: Alanine Aminotransferase 30 U/L (12-78); Albumin Level 4.4 g/dl (3.5-5.0); Albumin/Globulin Ratio 1.4 (1.1-1.8); Alkaline Phosphatase 94 U/L (38-126); Anion Gap 14.4 mEq/L (5-15); Aspartate Amino Transferase 32 U/L (14-36); Bilirubin,Total 0.5 mg/dl (0.2-1.3); Blood Urea Nitrogen 15 mg/dl (7-17); Calcium 9.5 mg/dl (8.4-10.2); Carbon Dioxide 30 mmol/L (22.0-30.0); Chloride 99 mmol/L (98-107); Chol/HDL Ratio 2.8 (1-3.5); Cholesterol 149 mg/dl (140-200); Estimated Glomerular Filt Rate 65 ml/min (>60); GFR (African American) 78 ML/MIN (>60); Globulin 3.2 g/dL (1.3-3.2); Glucose 92 mg/dl (74-100); HDL Cholesterol 53 mg/dl (40-60); Magnesium 2.2 mg/dl (1.6-2.3); Potassium 4.4 mmoL/L (3.5-5.1); Sodium 139 mmol/L (136-145); Total Protein,Serum 7.6 g/dl (6.3-8.2); Triglycerides 124 mg/dl (30-150); VLDL Cholesterol 25 mg/dL (0-40)
[2022-11-07 08:57] LABS: Direct LDL Cholesterol 70.46 mg/dL (100-129)
[2022-11-07 09:16] LABS: Thyroid Stimulating Hormone 2.94 uIU/mL (0.465-4.68)
== END ==
PROVIDERS: PCP Family Medicine; Visit Provider Family Medicine
DX: E78.5 Hyperlipidemia, unspecified (principal); I49.9 Cardiac arrhythmia, unspecified
CPT/HCPCS: 36415; 80053; 80061; 83735; 84443; 85025

== ENCOUNTER → 2023-02-04 15:00 | Outpatient (CLI) | payer OTHER, BC, SELFPAY ==
--- NOTE | 2023-02-04 15:00 | MM_ITS ---
PROCEDURE INFORMATION: Exam: MG Bilateral Screening 3D Mammography Exam date and time: 02/04/2023 2:50 PM Age: 57 years old Clinical indication: Screening examination TECHNIQUE: Imaging protocol: Bilateral Screening tomosynthesis and 2D mammography including computer-aided detection (CAD) when performed. COMPARISON: 1. MG MM DIG SCREENING MAMM BI W/CAD 01/22/2022 3:59 PM 2. MG MM DIG MAMM DX UNILAT RT CAD 12/14/2019 1:00 PM FINDINGS: MAMMOGRAPHY: Breast composition: There are scattered areas of fibroglandular density. Mass: None. Architectural distortion: None. Calcifications: No suspicious calcifications. Asymmetric density: None. Skin thickening: None. Axillary adenopathy: None. IMPRESSION: No mammographic evidence of malignancy. Annual screening is recommended unless otherwise clinically indicated. ASSESSMENT: BI-RADS Category 1: Negative
== END ==
PROVIDERS: PCP Family Medicine; Visit Provider Nurse Practitioner Obstetrics & Gynecology
DX: Z12.31 Encounter for screening mammogram for malignant neoplasm of breast (principal)
CPT/HCPCS: 77063; 77067

== ENCOUNTER → 2023-02-13 07:08 | Outpatient (CLI) | payer SELFPAY ==
--- NOTE | 2023-02-13 07:11 | CT_ITS ---
APPROVED REPORT Gsa Coordinator: CLINICAL INDICATION Risk stratification, preventative care TECHNIQUE Image Acquisition: A 128 slice MDCT scanner (INPHIa View) was used for data acquisition. A noncontrast coronary calcium scan was performed. A CT attenuation threshold of 130 Hounsfield units (HU) was used for the detection of calcium in contiguous voxels of 1 sq mm in area to be counted as individual lesions. A tube voltage of 120 KVp was used. The patient received no medications prior to the coronary calcium CT. Image Reconstruction Transaxial images were reconstructed at 0.67 mm slide thickness. Data was reviewed interactively on an advanced workstation capable of 2 and 3-dimensional displays in all conventional reconstruction formats, including multiplanar reformations, maximum intensity projections, curved multiplanar reformations, and volume rendered reconstructions. When applicable, selected routine images describing the relevant coronary anatomy and pathology were saved and sent to PACS. Complications None Technical Quality Overall image quality was good. Total DLP (Dose-Length Product) is 125.92 mGy-cm. The reported value represents the total of one or more individual components during the CT acquisition of this date and at this time, and as such, the same value may appear in more than one CT report depending on the interpreting/reporting physicians. COMPARISON None FINDINGS CT Coronary Calcium Scoring LMA (Left Main Artery) = 0 LAD (Left Anterior Descending) = 7 LCX (Left Coronary Circumflex) =0 RCA (Right Coronary Artery) = 25 Total Calcium Score = 32 using the AJ-130 method. There is no identifiable calcification in the aortic valve, mitral annulus or mitral valve, pericardium, or myocardium. IMPRESSION -Coronary artery calcification is present. -Total Calcium Score (Agatston Score) = 32 using the AJ-130 method. -The observed calcium score of 32 is at 87th percentile for subjects of the same age, sex, and race/ethnicity. The interpretation of the calcium heart score is based on the following continuum*: 0 = no calcified plaque detected (risk of coronary artery disease is very low ??? less than 5%) 1-10 = calcium detected in extremely minimal levels (risk of coronary diseases is still low ??? less than 10%) 11-100 = mild levels of plaque detected with certainty (mild or minimal narrowing of heart arteries is likely) 101-400 = definite,at least moderate levels of plaque detected (relatively high risk of a heart attack within 3-5 years) >401-999 = extensive levels of plaque detected (high risk of heart attack, high levels of vascular disease are present, high likelihood of at least one significant coronary narrowing) *The calcium heart score quantifies the burden of coronary calcification/plaque in the coronary arteries. The calcium heart score does not evaluate the presence or the burden of non-calcified (i.e. soft) plaque. The coronary and cardiac findings of this Coronary Calcium CT were reviewed, reported, and signed by Ceferino Tavarez MD (Exotic Dancer). Conclusion Electronically signed by : Patricia Tavarez MD 02/17/2023 12:54:49
== END ==
LOC: RAD 07:08
PROVIDERS: PCP Family Medicine; Visit Provider Physician Assistant
DX: Z13.6 Encounter for screening for cardiovascular disorders (principal)
CPT/HCPCS: 75571

== ENCOUNTER 2023-02-18 14:10 | Emergency (ER) | payer OTHER, BC, SELFPAY ==
[2023-02-18 14:11] VITALS: BP 115/69; PULSE 95; RESP 16; O2SAT 97; BMI 31.9
--- NOTE | 2023-02-18 14:30 | EXP.UTC ---
Discharge Plan Disposition Patient Disposition: Home, Self-Care Condition: Good Prescriptions Prescriptions: New prednisone [prednisone] 20 mg tablet 20 mg PO BID 5 Days Qty: 10 0RF benzonatate 100 mg capsule 100 mg PO TID PRN (Reason: cough) Qty: 30 0RF amoxicillin-pot clavulanate 875-125 mg Tablet 1 tab PO Q12H Qty: 20 0RF guaifenesin [Mucinex] 600 mg tablet extended release 12hr 1,200 mg PO BID PRN (Reason: cough) Qty: 20 0RF No Action citalopram 20 mg tablet 20 mg PO DAILY Qty: 90 Patient Comments: TAKE 1 TABLET BY MOUTH EVERY DAY Zyrtec 10 mg capsule 10 mg PO DAILY fluticasone propionate 50 mcg/actuation spray,suspension 1 spray intranasal DAILY PRN (Reason: .) Patient Comments: instill 1 SPRAY IN EACH NOSTRIL EVERY DAY triamterene-hydrochlorothiazid 37.5-25 mg tablet 1 tab PO DAILY PRN Patient Comments: TAKE ONE TABLET BY MOUTH EVERY DAY propranolol 20 mg tablet 20 mg PO DAILY Qty: 30 5RF rosuvastatin 10 mg tablet See Rx Instructions .ROUTE .COMPLEX Qty: 90 1RF Dose Instruction: TAKE ONE TABLET BY MOUTH EVERY DAY Rx Instructions: TAKE ONE TABLET BY MOUTH EVERY DAY Referrals Follow up/Referrals: Daryn Mercado MD [Primary Care Provider] - See instructions Activity Restrictions/Add. Instructions Additional Instructions/Restrictions: Start antibiotic today. Be sure to complete entire prescription even if feeling better Monitor temp. Tylenol every 4 hours as needed and / or ibuprofen every 6 hours as needed ( As long as your primary care physician has told you that it ok to take both. For fever/aches/pains ER if no less than 101 despite Tylenol or Motrin Humidifier/vaporizer or hot steamy shower Mucinex during the day for your cough and cough suppressant only at night. Be sure to drink lots of water. *Tessalon Perles will not cause drowsiness but use at bedtime to help stop cough so that you may get some rest. *Start steroid today. Helps with inflammation therefore, cough and wheezing. Follow directions on the package. Reviewed side effects. Patient reports taking them before. Follow up IMMEDIATELY for new or worsening of symptoms OR no noticeable improvement over the next 48-72 hours. 911 immediately for any life threatening symptoms such as chest pain or difficulty breathing Clinical Impressions Clinical Impression: Bronchitis Sinusitis Qualifiers: Sinusitis location: unspecified location Chronicity: unspecified Qualified Code(s): J32.9 - Chronic sinusitis, unspecified Instructions Patient Instructions: DI for Sinusitis, Acute Bronchitis Discharge ED Provider: Padmini Ibrahim [facility] General Stated complaint: cough, congestion, headache Mode of Arrival: Ambulatory Source of Information: Patient Limitations: No Limitations Time Seen by Provider: 02/18/23 14:30 Description of Symptoms (Recalled from Triage Doc. by RN): Patient complaint of cough, congestion and chest tightness since yesterday. HEENT Symptoms (Recalled from RN notes): Yes Resp Symptoms (Recalled from RN notes): No Skin Symptoms (Recalled from RN notes): No MS Symptoms (Recalled from RN notes): No Functional Status (Recalled from RN notes): wnl History of Present Illness Provider Complaint: Patient states that for about 3 weeks she has been having some sinus drainage and congestion States that she thought it was allergies and has been taking medication to help with it but feels like it is trying to settle in her chest now States that for the last couple of days she has been having tight cough and feels like the congestion has moved to her chest States that she was up most of the night last night coughing so today she came in to get checked Related Data Home Medications Medication Instructions Recorded Confirmed cetirizine 10 mg capsule (Zyrtec) 10 mg PO DAILY Allergy symptoms 08/20/18 02/09/23 citalopram 20 mg tablet 20 mg PO DAILY . #90 tabs 08/20/18 02/09/23 fluticasone propionate 50 1 spray intranasal DAILY PRN . 02/21/22 02/09/23 mcg/actuation nasal spray,suspension triamterene 37.5 1 tab PO DAILY PRN 02/21/22 02/09/23 mg-hydrochlorothiazide 25 mg tablet Previous Rx's Medication Instructions Recorded rosuvastatin 10 mg tablet See Rx Instructions .Route 05/12/22 .COMPLEX #90 tabs propranolol 20 mg tablet 20 mg PO DAILY #30 tabs 02/09/23 amoxicillin 875 mg-potassium 1 tab PO Q12H #20 tabs 02/18/23 clavulanate 125 mg tablet benzonatate 100 mg capsule 100 mg PO TID PRN cough #30 caps 02/18/23 guaifenesin 600 mg tablet, 1,200 mg PO BID PRN cough #20 tabs 02/18/23 extended release 12 hr (Mucinex) prednisone 20 mg tablet 20 mg PO BID 5 days #10 tabs 02/18/23 Allergies Allergy/AdvReac Type Severity Reaction Status Date / Time bupropion [From WELLBUTRIN] Allergy Mild Verified 02/09/23 14:45 Worker's Comp Is this a Worker's Comp case?: No [facility] Disclaimer: The information contained in this section may have been updated after the patient was seen, as this information can be updated by other users. Medical History Chest pain Edema HLD (hyperlipidemia) Surgical History History of endometrial ablation Hx of colonoscopy Hx of cone biopsy of cervix Hx of tonsillectomy Hx of tubal ligation Social History Smoking Status: Never smoker second hand exposure: No alcohol intake: never substance use type: denies use current occupational status: employed Travel in the last 8 weeks: None household members: spouse and children housing: house current occupation: RN current occupational exposures/hazards: Yes caffeine: Yes ROS Obtained: Yes All systems reviewed & no additional complaints except as documented and Yes Systems reviewed as appropriate & no additional complaints except as documented Constitutional Constitutional: Reports system reviewed and no additional complaints, except as documented, Reports as per HPI and Reports headache(s) ENT Ears, Nose, Mouth, and Throat: Reports system reviewed and no additional complaints, except as documented, Reports as per HPI, Reports headache(s), Reports nasal congestion and Reports sinus pressure Cardiovascular Cardiovascular: Reports system reviewed and no additional complaints, except as documented and Reports as per HPI Respiratory Respiratory: Reports system reviewed and no additional complaints, except as documented, Reports as per HPI, Denies shortness of breath, Reports chest congestion and Reports cough Gastrointestinal Gastrointestingal: Reports system reviewed and no additional complaints, except as documented and as per HPI Neurologic Neurologic: Reports headache(s) Physical Exam General General appearance: alert and in no apparent distress Expanded ENT Exam Nose exam: Present sinus tenderness Throat exam: Present other (Pharyngeal erythema noted with PND) Respiratory Respiratory exam: Present normal lung sounds bilaterally; Absent respiratory distress or wheezes Cardiovascular Cardiovascular exam: Present regular rate, normal rhythm and normal heart sounds Neurological Exam Neurological exam: Present alert, oriented X3 and normal gait Medical Decision Making Stanley Inquiry Pt receiving controlled substance: No Stanley was queried for this patient: No Vital Signs: 02/18/23 14:11 Pulse Rate [Radial] 95 H Respiratory Rate 16 Blood Pressure [Right Arm] 115/69 Blood Pressure Mean [Right Arm] 84 Blood Pressure Source [Right Arm] Automatic Cuff Blood Pressure Position [Right Arm] Sitting 02 Sat by Pulse Oximetry 97 Oxygen Delivery Method Room Air
[2023-02-18 14:48] VITALS: BP 115/69; PULSE 95; RESP 16; TEMP 36.7; O2SAT 97
== END 2023-02-18 14:48 | disposition home or self-care (01) ==
PROVIDERS: Emergency Provider Nurse Practitioner; PCP Family Medicine
DX: J20.9 Acute bronchitis, unspecified (principal); J01.90 Acute sinusitis, unspecified; R51.9 Headache, unspecified; R05.8 Other specified cough; R09.81 Nasal congestion
CPT/HCPCS: 99204; 99212; G0463

== ENCOUNTER 2023-03-05 05:57 | Outpatient (CLI) | payer OTHER, BC, SELFPAY ==
[2023-03-05 07:54] LABS: Hemoglobin A1C 5.6 % (4.0-6.0)
[2023-03-10 06:10] LABS: LDL-C 89; LDL-P 978
[2023-03-10 06:17] LABS: Cholesterol, Total 168; HDL-C 57; Triglycerides 123
[2023-03-10 06:20] LABS: LDL Size 21.1; LP-IR Score 57
== END 2023-03-05 23:59 ==
LOC: LAB 05:57
PROVIDERS: PCP Family Medicine; Visit Provider Physician Assistant
DX: R73.9 Hyperglycemia, unspecified (principal); E78.5 Hyperlipidemia, unspecified
CPT/HCPCS: 83036; 83704

== ENCOUNTER 2023-07-21 11:43 | Outpatient (CLI) | payer BC, SELFPAY ==
--- NOTE | 2023-07-21 11:47 | XR_ITS ---
FINAL REPORT CLINICAL HISTORY: PAIN RT HIP FROM FALL IN MAY COMPARISON: None FINDINGS: RIGHT HIP 3 views of the right hip and an AP view of the pelvis demonstrate no acute fracture or dislocation. The joint spaces appear normal. The visualized bony structures are well aligned. No soft tissue abnormality is seen. IMPRESSION: No acute bony abnormality. Reviewed, Interpreted and Dictated by Aris White MD Transcribed by Evelina Guerin Authenticated and [facility]
== END 2023-07-21 23:59 | disposition home or self-care (01) ==
LOC: RAD 11:44
PROVIDERS: PCP Family Medicine; Visit Provider Family Medicine
DX: M25.551 Pain in right hip (principal)
CPT/HCPCS: 73502

== ENCOUNTER 2024-02-12 08:48 | Outpatient (CLI) | payer BC, SELFPAY ==
[2024-02-12 09:28] LABS: Albumin Level 4.5 g/dl (3.5-5.0)
[2024-02-12 09:29] LABS: Chloride 108 mmol/L (98-107); Sodium 138 mmol/L (136-145)
[2024-02-12 09:31] LABS: Alanine Aminotransferase 35 U/L (12-78); Aspartate Amino Transferase 68 U/L (14-36); Bilirubin,Unconjugated 0.3 mg/dL (0.0-1.1); Blood Urea Nitrogen 13 mg/dl (7-17); Carbon Dioxide 26 mmol/L (22.0-30.0); Estimated Glomerular Filt Rate 74 ml/min (>60); GFR (African American) 89 ML/MIN (>60)
[2024-02-12 09:32] LABS: Alkaline Phosphatase 120 U/L (38-126); Bilirubin,Direct 0.7 mg/dl (0.0-0.4); Bilirubin,Indirect 0.3 mg/dL (0.0-0.9); Calcium 9.6 mg/dl (8.4-10.2); Chol/HDL Ratio 2.6 (1-3.5); Cholesterol 142 mg/dl (140-200); Glucose 96 mg/dl (74-100); HDL Cholesterol 55 mg/dl (40-60); Magnesium 2.3 mg/dl (1.6-2.3); Total Protein,Serum 7.4 g/dl (6.3-8.2); Triglycerides 109 mg/dl (30-150); VLDL Cholesterol 22 mg/dL (0-40)
[2024-02-12 09:43] LABS: Direct LDL Cholesterol 42.59 mg/dL (100-129)
[2024-02-12 09:49] LABS: Free T4 (Free Thyroxine) 0.75 ng/dl (0.78-2.19)
[2024-02-12 09:59] LABS: Basophils # 0.1 K/mm3 (0-0.2); Eosinophils # 0.3 K/mm3 (0.0-0.4); Eosinophils % 6.7 % (0.1-12.0); Hematocrit 43.7 % (37.0-47.0); Hemoglobin 14.6 g/dL (12.2-16.2); Lymphocytes # 1.4 K/mm3 (0.7-4.5); Lymphocytes % 29.1 % (10-50); Mean Corpuscular HGB Conc 33.4 g/dL (31.8-35.4); Mean Corpuscular Hemoglobin 29.6 pg (27.0-31.2); Mean Corpuscular Volume 88.5 fl (81-99); Mean Platelet Volume 10.2 fl (7.4-10.4); Monocytes # 0.3 K/mm3 (0.1-1.0); Monocytes % 6.3 % (1.7-9.3); Neutrophils # 2.8 K/mm3 (1.8-7.8); Neutrophils % 56.7 % (37.0-80.0); Platelet Count 232 K/mm3 (142-424); Red Blood Count 4.94 M/mm3 (4.20-5.40); Red Cell Distribution Width 12.9 % (11.5-17.5); White Blood Count 4.9 K/mm3 (4.8-10.8)
[2024-02-12 10:02] LABS: Thyroid Stimulating Hormone 3.66 uIU/mL (0.465-4.68)
== END 2024-02-12 23:59 | disposition home or self-care (01) ==
LOC: LAB 08:49
PROVIDERS: PCP Family Medicine; Visit Provider Internal Medicine
DX: E78.5 Hyperlipidemia, unspecified (principal); I25.10 Atherosclerotic heart disease of native coronary artery without angina pectoris; I49.8 Other specified cardiac arrhythmias; R55 Syncope and collapse
CPT/HCPCS: 36415; 80048; 80061; 80076; 83735; 84439; 84443; 85025; 93270

== ENCOUNTER 2024-02-22 07:45 | Outpatient (CLI) | payer BC, SELFPAY ==
--- NOTE | 2024-02-22 07:53 | CA_ITS ---
APPROVED REPORT EXAM: Comprehensive 2D, Doppler, and color-flow Echocardiogram Sintering Plant Supervisor: Katerina Paz RDCS Ht: 5 ft 8 in Wt: 223lbs BSA: 2.14 BP: 143/71 mmHg Indications: NEAR SYNCOPE 2D Dimensions Left Atrium 4.46 cm F: 2.7 - 3.8 EF AP4 57.10 % LVOT 1.86 cm (M/F) 1.5-2.5 GL Strain -23.7 % M-Mode Dimensions RVDd 2.66 cm (0.9-2.6) LVDd 5.43 cm (3.5-5.7) Ao Diam 3.54 cm (2.0-3.7) LVDs 3.65 cm (3.5-5.7) IVSd 0.53 cm (0.6-1.1) PWd 1.03 cm (0.6-1.1) EF (Teich) 60.70% FS 32.80% EDV (Teich) 143.10 mL ESV (Teich) 56.30 mL LV Diastology E Decel Time 179 (160-240 msec) E/A Ratio 0.6 MED E' 9.0 (>= 7 cm/sec) E'/MED E' Ratio 5.13 (<= 14) LAT E' 13.7 (>= 10 cm/sec) E/LAT E' Ratio 3.37 (<= 14) Mitral Valve MV E Max Tian. 46.0 (40-130 cm/s) MV A Velocity 82.0 (40-130 cm/s) E/A Ratio 0.56 MV Decel. Time 179 (160-240 ms) Left Ventricle The left ventricle is normal size. The left ventricular systolic function is normal. The left ventricular ejection fraction is within the normal range. There is normal left ventricular wall thickness. There is normal LV segmental wall motion. The left ventricular diastolic function is normal. LVEF is 60%. Right Ventricle The right ventricle is normal size. The right ventricular systolic function is normal. Atria The left atrium size is normal. The right atrium size is normal. There is no Doppler evidence of interatrial shunt. Aortic Valve The aortic valve is normal in structure. The aortic valve is trileaflet. There is no aortic valvular stenosis. No aortic regurgitation is present. Mitral Valve The mitral valve is normal in structure. No evidence of mitral valve stenosis. There is no mitral valve regurgitation noted. Tricuspid Valve Tricuspid valve is grossly normal in structure and function. Trace tricuspid regurgitation. There is insufficient TR jet to estimate RVSP. Pulmonic Valve The pulmonary valve is normal in structure. Trace pulmonic regurgitation. Great Vessels The aortic root is normal in size. IVC is normal in size and collapses >50% with inspiration. Pericardium There is no pericardial effusion. Other Information Study Quality: Adequate Conclusion Normal biventricular systolic function (LVEF 60%). No significant valvular stenosis or regurgitation. Electronically signed by : Patricia Tavarez MD 03/07/2024 11:16:24
== END 2024-02-22 23:59 | disposition home or self-care (01) ==
LOC: RT 07:48
PROVIDERS: PCP Family Medicine; Visit Provider Internal Medicine
DX: R55 Syncope and collapse (principal); I25.10 Atherosclerotic heart disease of native coronary artery without angina pectoris; I49.8 Other specified cardiac arrhythmias; E78.5 Hyperlipidemia, unspecified
CPT/HCPCS: 93306

== ENCOUNTER 2024-03-14 14:28 | Outpatient (CLI) | payer BC, SELFPAY ==
--- NOTE | 2024-03-14 14:32 | US_ITS ---
FINAL REPORT CLINICAL HISTORY: LESION OF ORAL MUCOSA-- rt mandible FINDINGS: Limited sonographic images were obtained of the soft tissues of the right mandible at the area of abnormality. No mass is identified. There are small lymph nodes superior to the submandibular area measuring up to 1.3 cm. IMPRESSION: Small lymph node superior to the mandible. No evidence of mass. Reviewed, Interpreted and Dictated by Aris White MD Transcribed by Evelina Guerin Authenticated and [facility]
--- NOTE | 2024-03-14 14:46 | MM_ITS ---
PROCEDURE INFORMATION: Exam: MG Bilateral Screening 3D Mammography Exam date and time: 03/14/2024 2:51 PM Age: 58 years old Clinical indication: Screening examination TECHNIQUE: Imaging protocol: Bilateral Screening tomosynthesis and 2D mammography including computer-aided detection (CAD) when performed. COMPARISON: 1. MG MM DIG SCREENING MAMM BI W/CAD 02/04/2023 2:50 PM 2. MG MM DIG SCREENING MAMM BI W/CAD 01/22/2022 3:59 PM FINDINGS: MAMMOGRAPHY: Breast composition: There are scattered areas of fibroglandular density. Mass: None. Architectural distortion: None. Calcifications: No suspicious calcifications. Asymmetric density: None. Skin thickening: None. Axillary adenopathy: None. IMPRESSION: No mammographic evidence of malignancy. Annual screening is recommended unless otherwise clinically indicated. ASSESSMENT: BI-RADS Category 1: Negative.
== END 2024-03-14 23:59 | disposition home or self-care (01) ==
LOC: RAD 14:29
PROVIDERS: PCP Family Medicine; Visit Provider Nurse Practitioner Family
DX: Z12.31 Encounter for screening mammogram for malignant neoplasm of breast (principal); K13.70 Unspecified lesions of oral mucosa
CPT/HCPCS: 76536; 77063; 77067

== ENCOUNTER 2025-01-13 06:53 | Outpatient (CLI) | payer BC, SELFPAY ==
--- OUTSIDE RECORDS SUMMARY | 2023-07-21 05:15 | XMS_ITS ---
Author Organization [facility] Address [address] [id number] Care Team Providers Care Carton Maker Name Role Phone Shalom Mercado Primary Care Provider Allergies Allergen (clinical drug ingredient) Drug/Non Drug Allergy documented on EMR Reaction Allergy Type Onset Date Status bupropion Wellbutrin XL swelling Drug Allergy Act maddie Results Component Value Reference Range Notes P-Comprehensive Metabolic Pa liliane (CMP) Reviewed date:07/22/2023 10:29:50 PM Interpretation: Performing Lab: Notes/Report: Test performed by [facility] [address] [place] [address] , [address], [place] [address] Fabián Be MD, Leather Repairer CLIA: [id number] Sodium 141 135-145 mEq/L Potassium 3.7 3.5-5.3 mEq/L Chloride 104 97-108 mEq/L CO2 26 22-32 mEq/L Glucose 89 65-99 mg/dL BUN 16 6-20 mg/dL Creatinine 0.82 0.50-1.00 mg/dL Calcium 9.6 8.6-10.4 mg/dL eGFR by Creatinine 83 >59 mL/min/1.73m2 Protein 7.1 6.0-8.3 g/dL Albumin 4.5 3.5-5.3 g/dL Alkaline Phosphatase 83 35-121 IU/L ALT (SGPT) 24 <5-47 IU/L AST (SGOT) 24 <5-40 IU/L Bilirubin, Total 0.7 <0.2-1.2 mg/dL A/G Ratio 1.7 1.1-2.5 mg/dL P-Lipid Panel Reviewed date:07/22/2023 10:29:50 PM Interpretation: Performing Lab: Notes/Report: Test performed by [facility] [address] [place] [address] Fabián Be MD, Leather Repairer CLIA: [id number] Cholesterol 116 <200 mg/dL Triglycerides 57 <150 mg/dL HDL Cholesterol 46 >39 mg/dL Cholesterol / HDL Ratio 2.52 0.00-4.44 Ratio Non-HDL Cholesterol 70 <130 mg/dL LDL Cholesterol (Calculation) 59 <130 mg/dL LDL Cholesterol Levels* Less than 100 mg/dL Optimal 100 to 129 mg/dL Near Optimal/ Above Optimal 130 to 159 mg/dL Borderline High 160 to 189 mg/dL High 190 mg/dL and above Very High * Categories as recommended by the 2004 ATPIII guidelines LDL/HDL Ratio 1.3 <3.3 Ratio LDL Cholesterol Patient History Test Date: 07/21/2023 LDL Results: 59 Units: mg/dL % Change: - P-TSH Reviewed date:07/22/2023 10:29:50 PM Interpretation: Performing Lab: Notes/Report: Test performed by [facility] [address] [place], [place] [address] Fabián Be MD, Leather Repairer CLIA: [id number] TSH 1.59 0.43-5.25 mU/L X ray : Hip, right Reviewed date:07/22/2023 10:29:50 PM Interpretation:Negative Performing Lab: Notes/Report: Negative REASON FOR VISIT refills Medications Medication SIG (Take, Route, Frequency, Duration) Notes Start Date End Date Status Trulance 3 MG 1 tablet Orally Once a day; Duration: 30 day(s) 07/21/2023 Active Lidocaine 5 % 1 patch remove after 12 hours Externally Once a day 07/21/2023 Active Citalopram Hydrobromide 20 mg TAKE ONE T ABLET BY MOUTH EVERY DAY; Duration: 90 Active Levocetirizine Dihydrochloride 5 MG 1 tablet in the evening Orally Once a day Active Adipex-P 37.5 MG 1 tab(s) orally once a day 06/18/2023 Active Nasacort Allergy 24HR 55 MCG/ACT 1 spray in each nostril Nasally Two times a day Active Rosuvastatin Calcium 10 MG 1 tablet Oral ly Once a day Active Ketotifen Fumarate 0.035 % 1 drop into a ffected eye Ophthalmic As needed Active PROPANOLOL 20mg 1 tab(s) oral once daily Active Problems Problem Type SNOMED Code ICD Code Onset Dates Problem Status W/U Status Risk Notes Problem Constipation (74372571) Constipation (K59.00) Active confirmed Vital Signs Blood pressure systolic 114 mm Hg 07/21/19 24 Blood pressure diastolic 80 mm Hg 024 Heart Rate 83 /min 07/21/2023 Height 66 in 07/21/2023 Weight 202 lbs 07/21/2023 BMI 32.60 kg/m2 07/21/2023 Encounters Encounter Location Date Provider Diagnosis [facility] [address] IVAN Thompson [id number] 07/21/2023 R Britton Mercado Dyslipidemia E78.5 ; Cardiac dysrhythmia I49.9 ; Constipation K59.00 ; Right hip pain M25.551 and Fall W19.XXXA Assessments Encounter Date Diagnosis (ICD Code) Assessment Notes Treatment Notes Treatment Clinical Notes Section Notes 07/21/2023 Dyslipidemia (ICD-10 - E78.5) 07/21/2023 Cardiac dysrhythmia (ICD-10 - I49.9) 07/21/2023 Constipation (ICD-10 - K59.00) 07/21/2023 Right hip pain (ICD-10 - M25.551) 07/21/2023 Fall (ICD-10 - W19.XXXA) Plan Of Treatment Medication Medication Name Sig Start Date Stop Date Notes Trulance 3 MG 1 tablet Orally Once a day; Duration: 30 day(s) 07/21/2023 Lidocaine 5 % 1 patch remove after 12 hours Externally Once a day 07/21/2023 Linzess 290 MCG 1 cap(s) once a day Rosuvastatin Calcium 10 MG 1 tablet Orally Once a day PROPANOLOL 20mg 1 tab(s) oral once daily Next Appt Details Follow Up: via phone to repo rt test results, Reason: Progress Notes * CELE CIFUENTESOB:1965 ( 59 yo F)Acc No.[id number]:07/21/2023 Progress Notes Patient: DOMINIQUE MONGE Provider: Shalom Mercado M.D. :1965 A ge:58 Y S ex:Female Date:07/21/2023 Address:[address] [place], [place] [address], [id number] Subjective: * Chief Complaints: * 1 . Refills. * HPI: H PI: Patient is here today for a check up with refills. Pt sts that she is having some issues with constipation although she is still taking her Linzess. Pt sts that she is having a lot of stress. . H ip/Thigh: Pt st that she slipped in the bath 2 montjhs ago and landed on her right hip and has been having pain since then. She has been on anti-inflammatory medication and stretching exercises with no improvement. Pt sts that she would like to see about getting Lidocaine patches. * ROS: A LLERGY: no R unny nose. n o I tchy eyes. N EUROLOGY: no H eadache. n o D izziness. U ROLOGY: no D ifficulty urinating. n o B lood in urine. * Medical History: A llergies, Fatigue. * Surgical History: t ubal , tonsilectomy , uterine ablation , C-scope - Case 2017. * Family History: F ather: alive 78 yrs, high cholestrol, prostate cancer, diagnosed with Cancer. M other: alive 79 yrs, high cholestrol. 1 brother(s) . 3 son(s) , 1 daughter(s) . . * Social History: C URRENT TOBACCO USE: No . C affeine: no. Home smoke detector use: yes. Alcohol: No. * Medications: T aking Ketotifen Fumarate 0.035 % Solution 1 drop into affected eye Ophthalmic As needed , Taking Nasacort Allergy 24HR 55 MCG/ACT Aerosol 1 spray in each nostril Nasally Two times a day , Taking Levocetirizine Dihydrochloride 5 MG Tablet 1 tablet in the evening Orally Once a day , Taking Rosuvastatin Calcium 10 MG Tablet 1 tablet Orally Once a day , Taking PROPANOLOL 20mg 1 tab(s) oral once daily , Taking Citalopram Hydrobromide 20 mg Tablet TAKE ONE TABLET BY MOUTH EVERY DAY , Taking Adipex-P 37.5 MG Tablet 1 tab(s) orally once a day , Taking Linzess 290 MCG Capsule 1 cap(s) once a day , Discontinued Aspirin 81 MG Tablet Delayed Release 1 tab(s) orally once a day , Discontinued Omeprazole 40 MG Capsule Delayed Release 1 cap(s) Orally once a day , Discontinued ZyrTEC Allergy 10 MG Tablet 1 tab(s) orally once a day , Discontinued Triamterene-HCTZ 37.5-25 MG Tablet 1 tab(s) orally once a day , Discontinued Fluticasone Propionate 50 MCG/ACT Suspension INSTILL 1 SPRAY IN EACH NOSTRIL EVERY DAY , Discontinued Cyclobenzaprine HCl 5 MG Tablet 1 tab(s) orally 3 times a day, prn , Discontinued Meclizine HCl 25 MG Tablet 1 tab(s) orally 3 times a day , Discontinued Medrol 4 MG Tablet Therapy Pack as directed orally daily , Medication List reviewed and reconciled with the patient * Allergies: W ellbutrin XL: swelling. Objective: * Vitals: W t:202, Temp:98.4, BP:114/80, HR:83, Nurse:LEATHA, Ht: 66, BMI:32.60. * Examination: G eneral Examination: General Appearance: NAD. Affect good. H eart:?RSR. L ungs: c lear to auscultation. E xtremities: R ight hip with no deformity or bony tenderness. Range of motion is nearly full with some pain on terminal flexion. ? Assessment: * Assessment: 1. D yslipidemia - E78.5 (Primary) 2 . C ardiac dysrhythmia - I49.9 ? 3 . C onstipation - K59.00 4 . R ight hip pain - M25.551 5 . F all - W19.XXXA Plan: * Treatment: Value Reference Range A /G Ratio 1.7 1.1-2.5 - mg/dL * A lbumin 4.5 3.5-5.3 - g/dL * A lkaline Phosphatase 83 35-121 - IU/L * A LT (SGPT) 24 <5-47 - IU/L * A ST (SGOT) 24 <5-40 - IU/L * B ilirubin, Total 0.7 <0.2-1.2 - mg/dL * B UN 16 6-20 - mg/dL * C alcium 9.6 8.6-10.4 - mg/dL * C hloride 104 97-108 - mEq/L * C O2 26 22-32 - mEq/L * C reatinine 0.82 0.50-1.00 - mg/dL * G lucose 89 65-99 - mg/dL * P otassium 3.7 3.5-5.3 - mEq/L * S odium 141 135-145 - mEq/L * P rotein 7.1 6.0-8.3 - g/dL * e GFR by Creatinine 83 >59 - mL/min/1.73m2 * Shalom Mercado 07/22/2023 1 0:29:39 PM >See phone encounter ?LAB: P-Lipid Panel (Collection Date & Time - 07/21/2023 10:15 AM)* Value Reference Range C holesterol / HDL Ratio 2.52 0.00-4.44 - Ratio * C holesterol 116 <200 - mg/dL * H DL Cholesterol 46 >39 - mg/dL * L DL Cholesterol (Calculation) 59 <130 - mg/d L * L DL/HDL Ratio 1.3 <3.3 - Ratio * N on-HDL Cholesterol 70 <130 - mg/dL * T riglycerides 57 <150 - mg/dL * Shalom Mercado 07/22/2023 1 0:29:39 PM >See phone encounter 2.?Cardiac dysrhythmia? Continue PROPANOLOL, 20mg, 1 tab(s), oral, once daily.??3.?Constipation? Stop Linzess Capsule, 290 MCG, 1 cap(s), once a day;?Start Trulance Tablet, 3 MG, 1 tablet, Orally, Once a day, 30 day(s), 30 Tablet, Refills 2.?LAB: P-TSH (Collection Date & Time - 07/21/2023 10:15 AM)* Value Reference Range T SH 1.59 0.43-5.25 - mU/L * Shalom Mercado 07/22/2023 1 0:29:39 PM >See phone encounter 4.?Right hip pain? Start Lidocaine Patch, 5 %, 1 patch remove after 12 hours, Externally, Once a day, 30.?Imaging: X ray : Hip, right (Performed Date - 07/21/2023)?Negative* Shalom Mercado 07/22/2023 1 0:29:39 PM >See phone encounter 5.?Fall?Imaging: X ray : Hip, right (Performed Date - 07/21/2023)?Negative* Shalom Mercado 07/22/2023 1 0:29:39 PM >See phone encounter * Follow Up: v ia phone to report test results * Images: Billing Information: * Visit Code: 53360 Office Visit, Est Pt., Level 3. * Procedure Codes: * Electronic signature of Shalom Mercado MD on 01/13/2025 at 06:57 AM EST Sign off status: Pending * Provider: Shalom Mercado M.D. Date: 0 07/21/2023 Generated for Denia quinonez/Crow/Jesus on: 1 03/15/2024 06:57 AM EST History and Physical Notes * HPI (History of Present Illness) Category Sub-Category Detail Notes Category Not es HPI Patient is here today for a [facility] k up with refills. Pt sts that she is having some issues with constipation although she is still taking her Linzess. Pt sts that she is having a lot of stress. Examination Category Sub-Category Detail Notes Category Not es General Examination Heart: RSR Lungs: clear to auscultatio n Extremities: Right hip with no de formity or bony tenderness. Range of motion is nearly full with some pain on terminal flexion General Appearance: NAD. Affect good
--- OUTSIDE RECORDS SUMMARY | 2024-03-14 08:15 | XMS_ITS ---
Author Organization [facility] Address [address] [phone] Care Team Providers Care Scrap Collector Name Role Phone Shalom Mercado Primary Care Provider [phone] Tiffanie Carrasquillo Unavailable [phone] Allergies Allergen (clinical drug ingredient) Drug/Non Drug Allergy documented on EMR Reaction Allergy Type Onset Date Status bupropion Wellbutrin XL swelling Drug Allergy Act maddie Results Component Value Reference Range Notes Ultrasound : Head Reviewed date:03/15/2024 09:43:40 AM Interpretation: Performing Lab: Notes/Report: REASON FOR VISIT sore place on her jaw line , spot on her neck Medications Medication SIG (Take, Route, Frequency, Duration) Notes Start Date End Date Status Citalopram Hydrobromide 20 mg TAKE ONE TABLET BY MOUTH EVERY DAY; Duration: 90 Active PROPANOLOL 20mg 1 tab(s) oral once daily Active Zepbound 2.5 MG/0.5ML 0.5 ml Subcutaneou s weekly; Duration: 30 day(s) 03/14/2024 Active Trulance 3 MG 1 tablet Orally Once a day; Duration: 30 day(s) Active Rosuvastatin Calcium 10 MG 1 tablet Oral ly Once a day Active Levocetirizine Dihydrochloride 5 MG 1 tablet in the evening Orally Once a day Active Nasacort Allergy 24HR 55 MCG/ACT 1 spray in each nostril Nasally Two times a day Active Ketotifen Fumarate 0.035 % 1 drop into a ffected eye Ophthalmic As needed Active Problems Problem Type SNOMED Code ICD Code Onset Dates Problem Status W/U Status Risk Notes Problem Sialolithiasis (23602017) Salivary duct stone (K11.5) Active confirmed Vital Signs Blood pressure systolic 110 mm Hg 03/14/19 25 Blood pressure diastolic 70 mm Hg 025 Heart Rate 62 /min 03/14/2024 Height 66 in 03/14/2024 Weight 226 lbs 03/14/2024 BMI 36.47 kg/m2 03/14/2024 Encounters Encounter Location Date Provider Diagnosis [facility] [address] [place], [place] [phone] 03/14/2024 Tiffanie Carrasquillo Lesion of oral mucos a K13.70 ; Salivary duct stone K11.5 ; Weight loss counseling, encounter for Z71.3 and Lesion of neck L98.9 Assessments Encounter Date Diagnosis (ICD Code) Assessment Notes Treatment Notes Treatment Clinical Notes Section Notes 03/14/2024 Lesion of oral mucosa (ICD-10 - K13.70) has appt for estela replacement on tooth 03/14/2024 Salivary duct stone (ICD-10 - K11.5) presented this as possible Dx 03/14/2024 Weight loss counseling, encounter for (ICD-10 - Z71.3) discussed weight loss plan with healthy foods; portion sizes and eating frequently throughout the day along with regular physical activity; will send RX; once started RTC after 4 doses 03/14/2024 Lesion of neck (ICD-10 - L98.9) probable lentigo ; has annual derm appt and will also have them to assess Plan Of Treatment Medication Medication Name Sig Start Date Stop Date Notes Zepbound 2.5 MG/0.5ML 0.5 ml Subcutaneou s weekly; Duration: 30 day(s) 03/14/2024 Treatment Notes Assessment Notes Lesion of oral mucosa has appt for estela r eplacement on tooth Salivary duct stone presented this as po ssible Dx Weight loss counseling, encounter for di scussed weight loss plan with healthy foods; portion sizes and eating frequently throughout the day along with regular physical activity; will send RX; once started RTC after 4 doses Lesion of neck probable lentigo ; h as annual derm appt and will also have them to assess Next Appt Details Follow Up: about 4 weeks, Re ason: Progress Notes * CELE CIFUENTESOB:1965 ( 59 yo F)Acc No.[id number]:03/14/2024 Progress Notes Patient: DOMINIQUE MONGE Provider: NEHAL Hopson :1965 A ge:58 Y S ex:Female Date:03/14/2024 Address:[place], [id number] Pcp:Shalom Mercado Subjective: * Chief Complaints: * [address] on her jaw line , spot on her neck. * HPI: C onstitutional: Pt has what she believes is on cyst on her right jaw line. Pt sts her daughter is a RN and was palpating it and it felt like it busted. Pt sts it can be painful at times. She also sts that she has a place on the right side of her neck. Denies : Weight gain. recent labs ordered by cardiology 02/12/2024 reviewed. E NT/respiratory: c/o facial pain/pressure r ight jaw. Denies : Fever. D enies : ear pain. G astroenterology: no tooth sensitivity. * ROS: G ASTROENTEROLOGY: no N ausea. n o H eartburn. n o V omiting.?no A bdominal pain. n o D iarrhea. C onstipation y es, t akes daily Trulance. U ROLOGY: no D ifficulty urinating. n o B lood in urine. * Medical History: A llergies, Fatigue. * Surgical History: t ubal , tonsilectomy , uterine ablation , C-scope - Case 2017. * Family History: F ather: alive 79 yrs, high cholestrol, prostate cancer, diagnosed with Cancer. M other: alive 80 yrs, high cholestrol. 1 brother(s) . 3 [...] TABLET BY MOUTH EVERY DAY , Taking Trulance 3 MG Tablet 1 tablet Orally Once a day , Discontinued Lidocaine 5 % Patch 1 patch remove after 12 hours Externally Once a day , Discontinued Adipex-P 37.5 MG Tablet 1 tab(s) orally once a day , Medication List reviewed and reconciled with the patient * Allergies: W ellbutrin XL: swelling. Objective: * Vitals: W t:226, Temp:98.4, BP:110/70, HR:62, Nurse:HANNAH, Ht: 66, BMI:36.47. * Examination: G eneral Examination: General Appearance: NAD, appears healthy, alert, pleasant. H EENT: sclera and conjunctiva clear, PERRLA, TM's normal, translucent. O ral cavity: right l ower mucosa fullness and TTP; no erythema ; cap missing on back righ molar. Neck: supple, no lymphadenopathy. H eart: RRR. L ungs: CTAB A&P.?Abdomen: bowel sounds present, soft and nontender, no guarding or rigidity. N eurologic Exam: alert and oriented. S kin: 0 .5 cm circular patch of flesh colored s earnestine skin right side of neck. E xtremities: has on support hose. Assessment: * Assessment: 1. L esion of oral mucosa - K13.70 (Primary) 2 . S alivary duct stone - K11.5 3 . W eight loss counseling, encounter for - Z71.3 4 . L esion of neck - L98.9 S pecify :right neck Plan: * Treatment: Notes: has appt for estela replacement on tooth??2.?Salivary duct stone? Notes: presented this as possible Dx??3.?Weight loss counseling, encounter for? Start Zepbound Solution Auto-injector, 2.5 MG/0.5ML, 0.5 ml, Subcutaneous, weekly, 30 day(s), 4, Refills 1.?? Notes: discussed weight loss plan with healthy foods; portion sizes and eating frequently throughout the day along with regular physical activity; will send RX; once started RTC after 4 doses? 4.?Lesion of neck? Notes: probable lentigo ; has annual derm appt and will also have them to assess?? * Follow Up: a bout 4 weeks * Images: Billing Information: * Visit Code: 46346 Office Visit, Est Pt., Level 4. * Procedure Codes: * Electronic signature of Shira Carrasquillo APRN on 01/13/2025 at 06:56 AM EST Sign off status: Pending * Provider: NEHAL Hopson Date: 0 03/14/2024 Generated for Denia quinonez/Crow/Jesus on: 03/15/2024 06:56 AM EST History and Physical Notes * HPI (History of Present Illness) Category Sub-Category Detail Notes Category Not es ENT/respiratory facial pain/pressure right jaw ear pain Fever Gastroenterology no tooth se nsitivity Constitutional Weight gain recent labs o rdered by cardiology 02/12/2024 reviewed Examination Category Sub-Category Detail Notes Category Not es General Examination HEENT: sclera and c onjunctiva clear, PERRLA, TM's normal, translucent Heart: RRR Lungs: CTAB A&P Abdomen: bowel sounds present , soft and nontender, no guarding or rigidity Extremities: has on support hose General Appearance: NAD, appears healthy , alert, pleasant Skin: 0.5 cm circular patc h of flesh colored scaly skin right side of neck Neurologic Exam: alert and oriented Neck: supple, no lymphaden opathy Oral cavity: right lower mucosa f ullness and TTP; no erythema ; cap missing on back righ molar
--- OUTSIDE RECORDS SUMMARY | 2024-04-11 08:30 | XMS_ITS ---
Author Organization [facility] Address [address] [phone] Care Team Providers Care Palm And Back Forger Name Role Phone Shalom Mercado Primary Care Provider [phone] Tiffanie Carrasquillo Unavailable [phone] Allergies Allergen (clinical drug ingredient) Drug/Non Drug Allergy documented on EMR Reaction Allergy Type Onset Date Status bupropion Wellbutrin XL swelling Drug Allergy Act maddie REASON FOR VISIT Follow Up Medications Medication SIG (Take, Route, Frequency, Duration) Notes Start Date End Date Status PROPANOLOL 20mg 1 tab(s) oral once daily Active Citalopram Hydrobromide 20 mg TAKE ONE TABLET BY MOUTH EVERY DAY; Duration: 90 Active Trulance 3 MG 1 tablet Orally Once a day; Duration: 30 day(s) Active Zepbound 2.5 MG/0.5ML 0.5 ml Subcutaneou s weekly; Duration: 30 day(s) 03/14/2024 Active Wegovy 0.25 MG/0.5ML 0.5 mL Subcutaneous once a week 03/21/2024 Active Levocetirizine Dihydrochloride 5 MG 1 tablet in the evening Orally Once a day Active Rosuvastatin Calcium 10 MG 1 tablet Oral ly Once a day Active Ketotifen Fumarate 0.035 % 1 drop into a ffected eye Ophthalmic As needed Active Nasacort Allergy 24HR 55 MCG/ACT 1 spray in each nostril Nasally Two times a day Active Vital Signs Blood pressure systolic 126 mm Hg 04/11/19 25 Blood pressure diastolic 68 mm Hg 025 Heart Rate 79 /min 04/11/2024 Height 66 in 04/11/2024 Weight 223.0 lbs 04/11/2024 BMI 35.99 kg/m2 04/11/2024 Encounters Encounter Location Date Provider Diagnosis [facility] [address] [place] [phone] 04/11/2024 Tiffanie Carrasquillo BMI 34.0-34.9,adult Z68.34 Assessments Encounter Date Diagnosis (ICD Code) Assessment Notes Treatment Notes Treatment Clinical Notes Section Notes 04/11/2024 BMI 34.0-34.9,adul t (ICD-10 - Z68.34) discussed her weekly SQ med for weight loss which is $500 + monthly; encouraged her to have a conversation with her insurance CO and relate the incorrect statement in the letter that she received from them; discussed food choices and portion sizes; antihistamines for itching Plan Of Treatment Treatment Notes Assessment Notes BMI 34.0-34.9,adult discussed her weekly SQ med for weight loss which is $500 + monthly; encouraged her to have a conversation with her insurance CO and relate the incorrect statement in the letter that she received from them; discussed food choices and portion sizes; antihistamines for itching Next Appt Details Follow Up: 4 Weeks, Reason: Progress Notes * OSWALDO CIFUENTESDEEJAYOB:1965 ( 59 yo F)Acc No.[id number]:04/11/2024 Progress Notes Patient: DOMINIQUE MONGE Provider: NEHAL Hopson :1965 A ge:58 Y S ex:Female Date:04/11/2024 Address:[address] [place], [place] [id number] Pcp:Shalom Mercado Subjective: * Chief Complaints: * 1 . Follow Up. * HPI: H PI: 58 year old female presents with c/o Patient is here today for?Pt is here today for a f/u on her weight loss medication and sts she is doing well with it.? her insurance denied coverage stating that she was not a diabetic; discussed with pt that what was RX was for nondiabetic pts; encourages her to have a discussion with her insurance Co; is now receiving SGL! from a copound pharmacy; dosages are measured in units with direction to increase 2 units at a time; they do comunicate with her as to when she should increase; so far the only SE have been headache and itching of hands and lower legs/feet which just started 2 days ago; no visible rash; she has taken benadryl. * ROS: G ASTROENTEROLOGY: no N ausea. [...] tablet Orally Once a day , Taking Zepbound 2.5 MG/0.5ML Solution Auto-injector 0.5 ml Subcutaneous weekly , Taking Wegovy 0.25 MG/0.5ML Solution Auto-injector 0.5 mL Subcutaneous once a week , Medication List reviewed and reconciled with the patient * Allergies: W ellbutrin XL: swelling. Objective: * Vitals: W t:223.0, Temp:97.8, BP:126/68, HR:79, O2 Sat:99% on RA, Nurse:beck, Ht: 66, BMI:35.99. * Examination: G eneral Examination: General Appearance: NAD, appears healthy, alert, pleasant. H eart: RRR. L ungs: CTAB A&P. N eurologic Exam: alert and oriented. S kin: normal, no rash. E xtremities: no leg edema. Assessment: * Assessment: 1. B IN 34.0-34.9,adult - Z68.34 (Primary) Plan: * Treatment: * Procedure Codes: 3 074F SYST BP LT 130 MM HG, 3078F DIAST BP < 80 MM HG * Follow Up: 4 Weeks * Images: Billing Information: * Visit Code: 32422 Office Visit, Est Pt., Level 3. * Procedure Codes: 3074F SYST BP LT 130 MM HG. 3078F DIAST BP < 80 MM HG. * Electronic signature of Shira Carrasquillo APRN on 01/13/2025 at 06:56 AM EST Sign off status: Pending * Provider: NEHAL Hopson Date: 0 04/11/2024 Generated for Denia quinonez/Crow/Jesus on: 1 03/15/2024 06:56 AM EST History and Physical Notes * HPI (History of Present Illness) Category Sub-Category Detail Notes Category Not es HPI Patient is here toda y for Pt is here today for a f/u on her weight loss medication and sts she is doing well with it her insurance denied coverage stating that she was not a diabetic; discussed with pt that what was RX was for nondiabetic pts; encourages her to have a discussion with her insurance Co; is now receiving SGL! from a copound pharmacy; dosages are measured in units with direction to increase 2 units at a time; they do comunicate with her as to when she should increase; so far the only SE have been headache and itching of hands and lower legs/feet which just started 2 days ago; no visible rash; she has taken benadryl Examination Category Sub-Category Detail Notes Category Not es General Examination Heart: RRR Lungs: CTAB A&P Extremities: no leg edema General Appearance: NAD, appears healthy , alert, pleasant Skin: normal, no rash Neurologic Exam: alert and oriented
--- OUTSIDE RECORDS SUMMARY | 2024-05-09 08:15 | XMS_ITS ---
Author Organization [facility] Address [address] [facility] [address] [place] [phone] Care Team Providers Care Affirmative Action Officer Name Role Phone Shalom Mercado Primary Care Provider Tiffanie Carrasquillo [phone] Allergies Allergen (clinical drug ingredient) Drug/Non Drug Allergy documented on EMR Reaction Allergy Type Onset Date Status bupropion Wellbutrin XL swelling Drug Allergy Act maddie REASON FOR VISIT 4 week f/u Encounters Encounter Location Date Provider Diagnosis [facility] [address] [place] [phone] 05/09/2024 Tiffanie Carrasquillo Plan Of Treatment No Information Progress Notes * CELE CIFUENTESOB:1965 ( 59 yo F)Acc No.[id number]:05/09/2024 Patient: Shade MORSE DOMINIQUE Provider: NEHAL Hopson :1965 A ge:58 Y S ex:Female Date:05/09/2024 Address:[address] [place], [place] [id number] Pcp:Shalom Mercado Subjective: * Chief Complaints: * 1 . 4 week f/u. * HPI: H PI: 58 year old female presents with c/o Patient is here today for?Pt is here today for a 4 week f/u on her weight loss medication. * ROS: G ASTROENTEROLOGY: no N ausea. n o H eartburn. n o V omiting.?no A bdominal pain. n o D iarrhea. C onstipation y es, t akes daily Trulance. U ROLOGY: no D ifficulty urinating. n o B lood in urine. * Medical History: A llergies, Fatigue. * Surgical History: t ubal , tonsilectomy , uterine ablation , C-scope - DrJanet Case 2017. * Family History: F ather: alive 79 yrs, high cholestrol, prostate cancer, diagnosed with Cancer. M other: alive 80 yrs, high cholestrol. 1 brother(s) . 3 son(s) , 1 daughter(s) . . * Social History: C URRENT TOBACCO USE: No . C affeine: no. Home smoke detector use: yes. Alcohol: No. * Allergies: W ellbutrin XL: swelling. Objective: * Vitals: Assessment: Plan: * Treatment: * Images: Billing Information: * Visit Code: * Procedure Codes: * Electronic signature of Shira Carrasquillo APRN on 01/13/2025 at 06:56 AM EST Sign off status: Pending * Provider: NEHAL Hopson Date: 0 05/09/2024 Generated for Denia quinonez/Crow/Augustitting on: 1 03/15/2024 06:56 AM EST History and Physical Notes * HPI (History of Present Illness) Category Sub-Category Detail Notes Category Not es HPI Patient is here today for Pt is here today for a 4 week f/u on her weight loss medication
--- OUTSIDE RECORDS SUMMARY | 2024-06-14 05:35 | XMS_ITS ---
Author Organization [facility] Address [address] [id number] Care Team Providers Care Store Standards Associate Name Role Phone Shalom Mercado Primary Care Provider Allergies Allergen (clinical drug ingredient) Drug/Non Drug Allergy documented on EMR Reaction Allergy Type Onset Date Status bupropion Wellbutrin XL swelling Drug Allergy Act maddie REASON FOR VISIT depression Medications Medication SIG (Take, Route, Frequency, Duration) Notes Start Date End Date Status Venlafaxine HCl ER 37.5 MG 1 capsule wit h food Orally Once a day; Duration: 30 day(s) 06/14/2024 Active Ketotifen Fumarate 0.035 % 1 drop into a ffected eye Ophthalmic As needed Active Levocetirizine Dihydrochloride 5 MG 1 tablet in the evening Orally Once a day Active Nasacort Allergy 24HR 55 MCG/ACT 1 spray in each nostril Nasally Two times a day Active Wegovy 0.25 MG/0.5ML 0.5 mL Subcutaneous once a week 03/21/2024 Active Zepbound 2.5 MG/0.5ML 0.5 ml Subcutaneou s weekly; Duration: 30 day(s) 03/14/2024 Active PROPANOLOL 20mg 1 tab(s) oral once daily Active Rosuvastatin Calcium 10 MG 1 tablet Oral ly Once a day Active Trulance 3 MG 1 tablet Orally Once a day; Duration: 30 day(s) Active Vital Signs Blood pressure systolic 120 mm Hg 06/15/19 25 Blood pressure diastolic 64 mm Hg 025 Heart Rate 69 /min 06/14/2024 Height 66 in 06/14/2024 Weight 207.8 lbs 06/14/2024 BMI 33.54 kg/m2 06/14/2024 Encounters Encounter Location Date Provider Diagnosis [facility] [address] [facility] [address] [place] [phone] 06/14/2024 Shalom Mercado Depression with anxiety F41.8 Assessments Encounter Date Diagnosis (ICD Code) Assessment Notes Treatment Notes Treatment Clinical Notes Section Notes 06/14/2024 Depression with anxiety (ICD-10 - F41.8) She will decrease her citalopram to half tablet daily for the next 2 weeks then discontinue while starting on the venlafaxine. Plan Of Treatment Medication Medication Name Sig Start Date Stop Date Notes Venlafaxine HCl ER 37.5 MG 1 capsule wit h food Orally Once a day; Duration: 30 day(s) 06/14/2024 Citalopram Hydrobromide 20 mg TAKE ONE T ABLET BY MOUTH EVERY DAY Treatment Notes Assessment Notes Depression with anxiety She will decreas e her citalopram to half tablet daily for the next 2 weeks then discontinue while starting on the venlafaxine. Next Appt Details Follow Up: 2-3 weeks by phon e to report progress, Reason: Progress Notes * CELE CIFUENTESOB:1965 ( 59 yo F)Acc No.[id number]:06/14/2024 Progress Notes Patient: MARYANNE MONGE Provider: Shalom Mercado M.D. :1965 A ge:59 Y S ex:Female Date:06/14/2024 Address:[address] [place], [place] [id number] Subjective: * Chief Complaints: * 1 . Depression. * HPI: P sychology: Maryanne comes in today complaining of worsening depression. She attributes this to the of her father about 6 months ago. She expected some degree of depression after his but feels like she should be doing better by now. Her symptoms are manifest mostly by anhedonia and excessive sleep. She continues on her citalopram which was originally prescribed for anxiety. * ROS: G ASTROENTEROLOGY: no N ausea. [...] 1 tab(s) oral once daily , Taking Trulance 3 MG Tablet 1 tablet Orally Once a day , Taking Zepbound 2.5 MG/0.5ML Solution Auto-injector 0.5 ml Subcutaneous weekly , Taking Wegovy 0.25 MG/0.5ML Solution Auto-injector 0.5 mL Subcutaneous once a week , Taking Citalopram Hydrobromide 20 mg Tablet TAKE ONE TABLET BY MOUTH EVERY DAY , Medication List reviewed and reconciled with the patient * Allergies: W ellbutrin XL: swelling. Objective: * Vitals: W t: 207.8, Temp: 98.3, BP: 120/64, HR: 69, Nurse: beck, Ht: 66, BMI:33.54. * Examination: P sychology: A ffect seems appropriate. Eye contact is normal. Assessment: * Assessment: 1. D epression with anxiety - F41.8 (Primary) Plan: * Treatment: * Procedure Codes: 3 074F SYST BP LT 130 MM HG, 3078F DIAST BP < 80 MM HG * Follow Up: 2 -3 weeks by phone to report progress * Images: Billing Information: * Visit Code: 50515 Office Visit, Est Pt., Level 3. * Procedure Codes: 3074F SYST BP LT 130 MM HG. 3078F DIAST BP < 80 MM HG. * Electronic signature of Shalom Mercado MD on 01/13/2025 at 06:56 AM EST Sign off status: Pending * Provider: Shalom Mercado M.D. Date: 0 06/14/2024 Generated for Denia quionnez/Crow/Isaiahransmitting on: 1 03/15/2024 06:56 AM EST History and Physical Notes * Examination Category Sub-Category Detail Notes Category Not es Psychology Affect seems ap propriate. Eye contact is normal.
--- OUTSIDE RECORDS SUMMARY | 2025-01-12 10:30 | XMS_ITS ---
Author Organization [facility] Address [address] [phone] Care Team Providers Care Business Systems Developer Name Role Phone Shalom Mercado Primary Care Provider [phone] Allergies Allergen (clinical drug ingredient) Drug/Non Drug Allergy documented on EMR Reaction Allergy Type Onset Date Status bupropion Wellbutrin XL swelling Drug Allergy Act maddie REASON FOR VISIT Physical, Needs labs & [...] 01/12/2025 Encounters Encounter Location Date Provider Diagnosis [facility] [address] [place] [phone] 01/12/2025 Shalom Mercado Dyslipidemia E78.5 ; Cardiac dysrhythmia I49.9 [...] MG 1 tablet Orally Once a day Pending Test Test Name Order Date H-Lipid Panel 01/12/2025 H-CMP 01/12/2025 Next Appt Details Follow Up: 6 Months, Reason: Progress Notes * CELE CIFUENTESOB:1965 ( 59 yo F)Acc No.[id number]:01/12/2025 Physical Patient: Shade MORSEDOMINIQUE Provider: Shalom Mercado M.D. :1965 A ge:59 Y S ex:Female Date:01/12/2025 Address:[address] [place], [place] [id number] Subjective: * Chief Complaints: * 1 . Physical. 2. Needs labs & colon cancer screening. * HPI: H PI: She comes in for scheduled checkup and is also in need of a employment physical for [employer]. Interim history is reviewed and she has [...] * Labs: * L ab: H-Lipid Panel L ab: H-CMP * Procedure Codes: 9 9173 VISUAL ACUITY SCREEN * Follow Up: 6 Months * Images: Billing Information: * Visit Code: 68152 Office Visit, Est Pt., Level 4. * Procedure Codes: 76668 VISUAL ACUITY SCREEN. * Electronic signature of Shalom Mercado MD on 01/13/2025 at 06:56 AM EST Sign off status: Pending * Provider: Shalom Mercado M.D. Date: 03/14/2024 Generated for Denia quinonez/Crow/Vincesmitting on: 03/15/2024 06:56 AM EST History and [...]
--- OUTSIDE RECORDS SUMMARY | 2025-01-13 06:56 | XMS_ITS | Encounter Summary ---
Author Organization [employer] ([place], [place], [place], [place], [place]) Address [address] [place] [address] Care Team Providers Care Manager Fashion Name Role Phone Unavailable Primary Care Provider Unavailabl e Encounter Details Date Type Department Care Team (Late st Contact Info) Description 03/10/2021 Transcribed Document [facility] [place] [facility] [place] [address] ProviderSteve MD [address] [place] [address] Social History Tobacco Use Types Packs/Day Years Used Date Smoking Tobacco: Never Assessed Comments Unknown Sex and Gender Information Value Date Recorded Sex Assigned at Female 08/20/2021 9:01 PM CDT Legal Sex Female 9:01 PM CDT Gender Identity Female 08/20/2021 9:01 PM CDT Sexual Orientation Not on file documented as of this encounter Miscellaneous Notes * Cerner Conversion Note - Historical ProviderMD - 03/10/2021 11:02 AM TICKET MANAGER Nursing Discharge Summary Entered On: 03/10/2021 11:03 EST Performed On: 03/10/2021 11:02 EST by DENY LAWTON RN Discharge Documentation Discharge Date/Time : 03/10/2021 11:30 EST Patient Disposition, General : Discharge Discharge To : Home with ambulatory/outpatient follow-up Mode Of Departure, General Discharge : Wheelchair with adult Accompanied By, Discharge : Care provider IV Discontinued : Yes Personal Belongings With Patient : Yes Prescriptions Given to Patient : No Discharge Instructions Reviewed With, Opportunity For Questions Given : Patient Teaching Method : Explanation, Printed materials Teaching Evaluation : Verbalizes understanding DENY LAWTON RN - 03/10/2021 11:02 EST Electronically signed by Mónica [facility] Conversion Operator Catalyst Concentration Cerner at 06/10/2022 1:18 PM CDT documented in this encounter Plan of Treatment Not on file documented as of this encounter Visit Diagnoses Not on filedocumented in this encounter
--- OUTSIDE RECORDS SUMMARY | 2025-01-13 06:56 | XMS_ITS | Encounter Summary ---
Author Organization [employer] ([place], [place], [place], [place], [place]) Address [address] [place] [address] Care Team Providers Care Lining Stuffer Name Role Phone Unavailable Primary Care Provider Unavailabl e Encounter Details Date Type Department Care Team (Late st Contact Info) Description 03/10/2021 Transcribed Document [facility] [place] [facility] [place] [facility] [place] [address] ProviderSteve MD [address] [place] [address] Social History Tobacco Use Types Packs/Day Years Used Date Smoking Tobacco: Never Assessed Comments Unknown Sex and Gender Information Value Date Recorded Sex Assigned at Female 08/20/2021 9:01 PM CDT Legal Sex Female 9:01 PM CDT Gender Identity Female 08/20/2021 9:01 PM CDT Sexual Orientation Not on file documented as of this encounter Miscellaneous Notes * Cerner Conversion Note - Steve Faust MD - 03/10/2021 9:20 AM HOUSE MOVER DATE OF SERVICE: 03/09/2021 REPORT TYPE: EEG REFERRING PHYSICIAN: Anamaria Jacob MD REPORT TITLE: Video Electroencephalogram Report STUDY DURATION: One day. HISTORY: This is a 55-year-old woman, being evaluated for seizures. EEG VIDEO MONITORING METHODOLOGY: Time-locked EEG-video monitoring was performed using the 32-channel Ahandyhand monitoring system. The seizure detection computer was used for detection of ictal discharges (subclinical and clinical), interictal discharges, and to record ictal events that were documented by depression of the event button in the patient's room. Analyses of the monitoring data were performed using the following techniques: Review of the relevant EEG-video data. Review of events detected by the computer system in detail. Review of clinical seizures, with both detailed review of EEG and video and playback using multiple montages. A variety of referential and bipolar montages were used. CLINICAL AND EEG ANALYSIS: There was no event reported during the period of monitoring. TIME SAMPLES: The recording was reviewed. During wakefulness, 10 to 10.5 Hz activity is seen posteriorly. Lower amplitude faster activity in the beta range is noted with a wider distribution. 4 to 5 Hz theta waves are seen at F7-T7-P7 and F8-T8-P8, more in the former. During sleep, well-formed sleep spindles are seen in both hemispheres. SPIKE DETECTION: The spike detection program was activated during the period of monitoring. Occasional sharply contoured slow waves and rare sharp waves are noted at F7-T7-P7. Rare sharply contoured slow waves are noted independently at F8-T8-P8. EEG DIAGNOSIS: This is an abnormal video EEG study because of: 1. Focal slow wave activity noted at F7-T7-P7 and less frequently independently at F8-T8-P8. 2. Occasional sharply contoured slow waves and rare sharp waves at F7-T7-P7. 3. Rare sharply contoured slow waves at F8-T8-P8. CLINICAL INTERPRETATION: There was no event reported during the period of monitoring. Continuous EEG recordings showed no electrographic ictal discharge. EEG recordings showed slow waves, occasional sharply contoured slow waves, and rare sharp waves in the left temporal electrodes, consistent with focal cerebral dysfunction and possible potential epileptogenicity in the left temporal region. Less frequent slow waves and rare sharply contoured slow waves were seen independently in the right temporal electrodes indicative of milder focal cerebral dysfunction and possible potential epileptogenicity in the right temporal region. /[id number] MD ORESTES Ibarra/AQ / TAF / MODL /[id number] documented in this encounter Plan of Treatment Not on file documented as of this encounter Visit Diagnoses Not on filedocumented in this encounter
--- OUTSIDE RECORDS SUMMARY | 2025-01-13 06:56 | XMS_ITS | Encounter Summary ---
Author Organization [employer] ([place], [place], [place], [place], [place]) Address [address] [place] [address] Care Team Providers Care Tie Bucker Name Role Phone Unavailable Primary Care Provider Unavailabl e Encounter Details Date Type Department Care Team (Late st Contact Info) Description 03/10/2021 Transcribed Document [facility] [place] [facility] [place] [address] ProviderSteve MD [address] [place] [address] Social History Tobacco Use Types Packs/Day Years [...] Conversion Note - Historical ProviderMD - 03/10/2021 10:58 AM MARKETING CONSULTANT Stroke/Warfarin Instructions Entered On: 03/10/2021 10:58 EST Performed On: 03/10/2021 10:58 EST by DENY LAWTON RN Stroke/Warfarin Instructions Stroke/TIA Discharge Ins : N/A Warfarin Discharge Ins : N/A DENY LAWTON RN - 03/10/2021 10:58 EST Electronically signed by Mónica [facility] Conversion Checker Bakery Products Venancio at 06/10/2022 1:39 PM CDT documented in this encounter Plan of Treatment Not on file documented as of this encounter Visit Diagnoses Not on filedocumented in this encounter
--- OUTSIDE RECORDS SUMMARY | 2025-01-13 06:56 | XMS_ITS | Clinical Summary ---
Author Organization [employer] ([place], [place], [place], [place], [place]) Address [address] [place] [address] Care Team Providers Care Maintainer Sewer And Waterworks Name Role Phone Unavailable Primary Care Provider Unavailabl e Social History Tobacco Use Types Packs/Day Years Used Date Smoking Tobacco: Never Assessed Comments Unknown Sex and Gender Information Value Date Recorded Sex Assigned at Female 08/20/2021 9:01 PM CDT Legal Sex Female 9:01 PM CDT Gender Identity Female 08/20/2021 9:01 PM CDT Sexual Orientation Not on file Plan of Treatment Not on file
--- OUTSIDE RECORDS SUMMARY | 2025-01-13 06:56 | XMS_ITS | Encounter Summary ---
Author Organization [employer] ([place], [place], [place], [place], [place]) Address [address] [place] [address] Care Team Providers Care Curatorial Specialist Name Role Phone Unavailable Primary Care Provider Unavailabl e Encounter Details Date Type Department Care Team (Late st Contact Info) Description 03/10/2021 Transcribed Document [facility] [place] Family Medicine [facility] [place] [address] ProviderSteve MD [address] [place] [id number] Social History Tobacco Use Types Packs/Day Years Used Date Smoking Tobacco: Never Assessed Comments Unknown Sex and Gender Information Value Date Recorded Sex Assigned at Female 08/20/2021 9:01 PM CDT Legal Sex Female 9:01 PM CDT Gender Identity Female 08/20/2021 9:01 PM CDT Sexual Orientation Not on file documented as of this encounter Miscellaneous Notes * Cerner Conversion Note - Steve ProviderMD - 03/10/2021 10:46 AM TUBE HANDLER [address] , [place] [address] Patient Copy Patient Information: Name: MARYANNE CIFUENTES Current Date: 03/10/2021 10:46:25 : 1965 Patient Address: [address] [facility] [address] Patient Attending Physician: LINDSAY PALMA MD-MILES Primary Care Provider: YOKO LOYD DR Primary Care Provider Discharge Diagnosis: Abnormal electroencephalogram (EEG); Nonepileptic episode Weight on Admission: 205 lb, 0 oz Comment: Follow-up Instructions: With: Address: When: rAgenis Vyas [address] [place] [phone] Business (1) Within 3 months Discharge Instructions: Immunizations Documented During Stay: No Immunizations Found Heart Failure Discharge Instructions (if any): Stroke Related Discharge Instructions (if any): Warfarin Related Discharge Instructions (if any): Final Medication List: Other Medications armodafinil (armodafinil 150 mg oral tablet) 1 Tablet(s) Oral Every Day. aspirin (Aspirin Low Dose 81 mg oral delayed release tablet) 1 Tablet(s) Oral Every Day. conjugated estrogens-medroxyPROGESTERone (Prempro 0.3 mg-1.5 mg oral tablet) 1 Tablet(s) Oral Every Day. omeprazole (omeprazole 40 mg oral delayed release capsule) 1 Capsule(s) Oral Every Day. before a meal. propranolol (propranolol 20 mg oral tablet) 1 Tablet(s) Oral Two Times A Day. rosuvastatin (rosuvastatin 10 mg oral tablet) 1 Tablet(s) Oral Every Day. Patient Allergies: No Known Medication Allergies Medication Instructions: Take your medications faithfully. Do NOT skip medication. Do NOT stop taking medications without the direction of a physician. Carry a list of your medications with you at all times, and take this medication list with you to your first follow up visit. Report any side effects. Avoid herbal remedies unless discussed with your physician. As part of your treatment plan, your physician may have prescribed a limited course of a controlled substance. This medication may be given to help people with moderate or severe pain or for other medical conditions, but there are risks involved with treatment. Common side effects may include nausea, constipation, drowsiness, sweating, itching, dry mouth, and rash. More serious side effects may include cognitive and motor impairment, like problems with thinking, concentrating, alertness, and movement (e.g. slowed reflexes), and driving and operating heavy machinery can be dangerous. It is important for you to talk to your physician if you have these side effects or questions. These controlled substances can produce physical dependence and be habit-forming if taken for an extended period of time, which means that the body has gotten used to them and may experience withdrawal symptoms if they are abruptly stopped. Withdrawal symptoms can include runny nose, sweating, goose bumps, diarrhea, abdominal cramping, rapid heartbeat, difficulty sleeping, and nervousness. CIGARETTE SMOKING: The facts are clear, cigarette smoking will shorten your life. Smoking can cause many illnesses along the way. As a healthcare provider, we recommend that you stop smoking. Assistance with quitting is available by contacting 4-443-QNNY-NOW. This is a free resource providing counseling, support, and referral. Or you may contact your personal physician. 4 WAYS TO GET AHEAD OF SEPSIS SEPSIS is a MEDICAL EMERGENCY. Time matters! Infections put you and your family at risk for a life-threatening condition called sepsis. Sepsis is the body???s extreme response to an infection. It is life-threatening, and without timely treatment, sepsis can rapidly lead to tissue damage, organ failure, and . Sepsis happens when an infection you already have???in your skin, lungs, urinary tract or somewhere else???triggers a chain reaction throughout your body. 1 PREVENT INFECTIONS Take good care of chronic conditions. Talk to your doctor about getting the recommended vaccines. 2 PRACTICE GOOD HYGIENE Wash your hands frequently. Keep cuts or open sores clean and covered until they are healed. 3 KNOW THE SYMPTOMS Confusion or disorientation Shortness of breath High heart rate Fever, shivering, or feeling very cold Extreme pain or discomfort Clammy or sweaty skin 4 ACT FAST Get medical care IMMEDIATELY if you suspect sepsis or if you have an infection that???s not getting better or is getting worse. To learn more about sepsis and how to prevent infections, visit www.cdc.gov/sepsis. STROKE is an EMERGENCY Every Minute Counts ACT F.A.S.T! FACE ?? Facial droop ?? Uneven smile ARM ?? Arm numbness ?? Arm weakness SPEECH ?? Slurred speech ?? Difficulty speaking or understanding TIME ?? Call 911 and get to the hospital immediately Have the ambulance go to the nearest stroke center. STROKE Risk Factors High blood pressure High cholesterol Heart Disease Diabetes Smoking Heavy alcohol use Physical inactivity and obesity Atrial Fibrillation (irregular heartbeat) Family history of stroke Reminder: Be sure to sign up for the [employer] patient portal, which gives you 15/09 access to your medical information ??? including these discharge instructions ??? using your computer, smartphone, or tablet. Just go to [employer] to get started. Questions? Call . [facility] would like to thank you for allowing us to assist you with your healthcare needs. VANE Alexander DAWN ELIZABETH, (or technical services representative) have received the above patient education materials/instructions and have verbalized understanding: Patient Signature _ Date/Time Patient Swat Team Member Signature (if needed) Date/Time Clinician/Hospital Swat Team Member Signature (if needed) Date/Time documented in this encounter Plan of Treatment Not on file documented as of this encounter Visit Diagnoses Not on filedocumented in this encounter
--- OUTSIDE RECORDS SUMMARY | 2025-01-13 06:56 | XMS_ITS | Encounter Summary ---
Author Organization [employer] ([place], [place], [place], [place], [place]) Address [address] [place] [address] Care Team Providers Care Reproduction Artist Name Role Phone Unavailable Primary Care Provider Unavailabl e Encounter Details Date Type Department Care Team (Late st Contact Info) Description 03/10/2021 Transcribed Document [facility] [place] Family [place] [facility] [place] [address] ProviderSteve MD [address] [place] [id number] Social History Tobacco Use Types Packs/Day Years [...] Conversion Note - Historical ProviderMD - 03/10/2021 12:21 PM [employer] SE[employer]ATION PLANT OPERATOR Initial Discharge Planning Entered On: 03/10/2021 12:22 EST Performed On: 03/10/2021 12:21 EST by MARILU FRAGOSO Social Worker Initial Assessment I Previously Documented Living Environment : No qualifying data available. Living Situation : Home with family care Patient Lives With : Spouse Is the Patient a Caregiver at Home? : No Emergency Contact #1 : Thom Jose F Emergency Contact #1 Emergency Contact #1 Relationship : Emergency Contact #2 : N/A Emergency Contact #2 Phone Number : . Emergency Contact #2 Relationship : . Identified Medical Decision Maker : Maryanne Kohler Number of People in Class : 1 Identified Medical Decision Maker Class : self MARILU FRAGOSO Digital Strategy Director - 03/10/2021 12:21 EST Initial Assessment II Sensory and Motor Deficits : None Current Home Treatments and Equipment : None MARILU FRAGOSO Digital Strategy Director - 03/10/2021 12:21 EST Discharge Needs I Anticipated Discharge Date : 03/10/2021 EST Anticipated Discharge To, CM : Home with family care Current Home Treatment/Equipment : Current Home Treatment/Equipment No qualifying data available. Post Acute/Home Treatments : None Documentation Status Complete : Yes MARILU FRAGOSO Digital Strategy Director - 03/10/2021 12:21 EST Discharge Needs II Professional Skilled Services : Professional Skilled Services No qualifying data available. MARILU FRAGOSO Digital Strategy Director - 03/10/2021 12:21 EST Narrative Note Narrative Note : Pt admitted for seizures and is discharging home today with her with no needs. MARILU FRAGOSO Digital Strategy Director - 03/10/2021 12:21 EST documented in this encounter Plan of Treatment Not on file documented as of this encounter Visit Diagnoses Not on filedocumented in this encounter
--- OUTSIDE RECORDS SUMMARY | 2025-01-13 06:56 | XMS_ITS | Encounter Summary ---
Author Organization [employer] ([place], [place], [place], [place], [place]) Address [address] [place] [address] Care Team Providers Care [employer] Solutions Consultant Name Role Phone Unavailable Primary Care Provider Unavailabl e Encounter Details Date Type Department Care Team (Late st Contact Info) Description 03/10/2021 Transcribed Document [facility] [place] [address] ProviderSteve MD [address] [place] [id number] Social History Tobacco Use Types Packs/Day [...] Note - Steve Faust MD - 03/10/2021 11:03 AM PIE MAKER [facility] [place] [address] MARYANNE CIFUENTES :1965 Visit Time:03/08/2021 Your Visit Summary Your Care Team Admitting Physician - LINDSAY PALMA MD-NEU Attending Physician - LINDSAY PALMA MD-NEU Primary Care Physician - YOKO LOYD DR Referring Physician - YOKO LOYD DR Your Diagnosis Abnormal electroencephalogram (EEG) Nonepileptic episode These Are Your Goals No qualifying data available. Discharge Vitals Temperature 36.3 ??C Heart Rate 66 Respiratory Rate 14 Blood Pressure 118/66 What to do next Instructions From Your Care Team Discharge Activity: Discharge Activity: Activity as tolerated Diet: Discharge Diet: Regular diet as tolerated Follow-Up Appointments Follow Up with Argenis Vyas When Within 3 months Comments Call for follow up appointment Where: [address] [place] [address] [employer] (1) Medications What How Much When Instructions Next Dose armodafinil (armodafinil 150 mg oral tablet) 1 Tablet(s) Oral Every Day tomorrow aspirin (Aspirin Low Dose 81 mg oral delayed release tablet) 1 Tablet(s) Oral Every Day tomorrow conjugated estrogens-medroxyPROGESTERone (Prempro 0.3 mg-1.5 mg oral tablet) 1 Tablet(s) Oral Every Day tomorrow omeprazole (omeprazole 40 mg oral delayed release capsule) 1 Capsule(s) Oral Every Day before a meal tomorrow propranolol (propranolol 20 mg oral tablet) 1 Tablet(s) Oral Two Times A Day today rosuvastatin (rosuvastatin 10 mg oral tablet) 1 Tablet(s) Oral Every Day tomorrow Take your medications faithfully. Do NOT skip [...] cramping, rapid heartbeat, difficulty sleeping, and nervousness. Please dispose of unused and medications per your retail pharmacy guidance. Allergies No Known Medication Allergies Immunizations This Visit No Immunizations Found Education Materials Seizure, Adult A seizure is a sudden burst of abnormal electrical and chemical activity in the brain. Seizures usually last from 30 seconds to 2 minutes. What are the causes? Common causes of this condition include: ??? Fever or infection. ??? Problems that affect the brain. These may include: ? A brain or head injury. ? Bleeding in the brain. ? A brain tumor. ??? Low levels of blood sugar or salt. ??? Kidney problems or liver problems. ??? Conditions that are passed from parent to child (are inherited). ??? Problems with a substance, such as: ? Having a reaction to a drug or a medicine. ? Stopping the use of a substance all of a sudden (withdrawal). ??? A stroke. ??? Disorders that affect how you develop. Sometimes, the cause may not be known. What increases the risk? Having someone in your family who has epilepsy. In this condition, seizures happen again and again over time. They have no clear cause. ??? Having had a tonic???clonic seizure before. This type of seizure causes you to: ? Tighten the muscles of the whole body. ? Lose consciousness. ??? Having had a head injury or strokes before. ??? Having had a lack of oxygen at . What are the signs or symptoms? There are many types of seizures. The symptoms vary depending on the type of seizure you have. Symptoms during a seizure ??? Shaking that you cannot control (convulsions) with fast, jerky movements of muscles. ??? Stiffness of the body. ??? Breathing problems. ??? Feeling mixed up (confused). ??? Staring or not responding to sound or touch. ??? Head nodding. ??? Eyes that blink, flutter, or move fast. ??? Drooling, grunting, or making clicking sounds with your mouth ??? Losing control of when you pee or poop. Symptoms before a seizure ??? Feeling afraid, nervous, or worried. ??? Feeling like you may vomit. ??? Feeling like: ? You are moving when you are not. ? Things around you are moving when they are not. ??? Feeling like you saw or heard something before (d??j?? vu). ??? Odd tastes or smells. ??? Changes in how you see. You may see flashing lights or spots. Symptoms after a seizure ??? Feeling confused. ??? Feeling sleepy. ??? Headache. ??? Sore muscles. How is this treated? If your seizure stops on its own, you will not need treatment. If your seizure lasts longer than 5 minutes, you will normally need treatment. Treatment may include: ??? Medicines given through an IV tube. ??? Avoiding things, such as medicines, that are known to cause your seizures. ??? Medicines to prevent seizures. ??? A device to prevent or control seizures. ??? Surgery. ??? A diet low in carbohydrates and high in fat (ketogenic diet). Follow these instructions at home: Medicines ??? Take [id number] and prescription medicines only as told by your doctor. ??? Avoid foods or drinks that may keep your medicine from working, such as alcohol. Activity ??? Follow instructions about driving, swimming, or doing things that would be dangerous if you had another seizure. Wait until your doctor says it is safe for you to do these things. ??? If you live in the [place] ask your local department of motor vehicles when you can drive. ??? Get a lot of rest. Teaching others ??? Teach friends and family what to do when you have a seizure. They should: ? Help you get down to the ground. ? Protect your head and body. ? Loosen any clothing around your neck. ? Turn you on your side. ? Know whether or not you need emergency care. ? Stay with you until you are better. ??? Also, tell them what not to do if you have a seizure. Tell them: ? They should not hold you down. ? They should not put anything in your mouth. General instructions ??? Avoid anything that gives you seizures. ??? Keep a seizure diary. Write down: ? What you remember about each seizure. ? What you think caused each seizure. ??? Keep all follow-up visits. Contact a doctor if: ??? You have another seizure or seizures. Call the doctor each time you have a seizure. ??? The pattern of your seizures changes. ??? You keep having seizures with treatment. ??? You have symptoms of being sick or having an infection. ??? You are not able to take your medicine. Get help right away if: ??? You have any of these problems: ? A seizure that lasts longer than 5 minutes. ? Many seizures in a row and you do not feel better between seizures. ? A seizure that makes it harder to breathe. ? A seizure and you can no longer speak or use part of your body. ??? You do not wake up right after a seizure. ??? You get hurt during a seizure. ??? You feel confused or have pain right after a seizure. These symptoms may be an emergency. Get help right away. Call your local emergency services (911 in the [place] ??? Do not wait to see if the symptoms will go away. ??? Do not drive yourself to the hospital. Summary ??? A seizure is a sudden burst of abnormal electrical and chemical activity in the brain. Seizures normally last from 30 seconds to 2 minutes. ??? Causes of seizures include illness, injury to the head, low levels of blood sugar or salt, and certain conditions. ??? Most seizures will stop on their own in less than 5 minutes. Seizures that last longer than 5 minutes are a medical emergency and need treatment right away. ??? Many medicines are used to treat seizures. Take [id number]-[id number] and prescription medicines only as told by your doctor. This information is not intended to replace advice given to you by your health care provider. Make sure you discuss any questions you have with your health care provider. Document Revised: 08/17/2020 Document Reviewed: 08/17/2020 [employer] Patient Education ?? 2020 [employer] Emergency Awareness and Preventative Care STROKE is an EMERGENCY Every Minute Counts Act FAST and Check for these signs: FACE Does the face look uneven? ARM Does one arm drift down? SPEECH Does their speech sound strange? TIME Call at any sign of stroke Stroke Risk Factors Atrial Fibrillation (irregular heartbeat) Diabetes Family history of stroke Heart Disease Heavy alcohol use High Blood Pressure High Cholesterol Physical inactivity and obesity Smoking Cigarette Smoking The facts are clear, cigarette smoking will shorten your life. Smoking can cause many illnesses along the way. As a healthcare provider, we recommend that you stop smoking. Assistance with quitting is available by contacting 8-676-CPKONOW. This is a free resource providing counseling, support, and referral. Or you may contact your personal physician. [place] Suicide Prevention Lifeline: The National Suicide Prevention Lifeline is a national network of local crisis centers that provides free and confidential emotional support to people in suicidal crisis or emotional distress 24 hours a day, 7 days a week. Don't Wait! Stop a Heart Attack Before it Starts What is a heart attack? A heart attack is damage or to a part of the heart from severely decreased or lack of blood flow to the heart. Over time, arteries can become narrow from the buildup of fat and cholesterol, which is called plaque. The plaque can rupture causing a blood clot to form. When the blood clot forms, the artery can become severely narrowed or completely blocked, causing a heart attack. Heart attack is the leading cause of in the [place]. 85% of muscle damage occurs within the first 2 hours. Delay in the recognition of heart attack symptoms increases the chances of . Know the early symptoms of a heart attack: Nausea Feeling of fullness in chest Jaw Pain Pain that travels down one or both arms Fatigue/being tired Anxiety Back Pain Chest pressure, squeezing, or discomfort Shortness of breath Sweating, or a cold sweat Feeling of impending doom There are unusual signs of a heart attack, too! Women, the elderly, and diabetics may present with atypical symptoms: Fainting/dizziness Weakness Confusion Risk Factors for a Heart Attack Some heart disease risk factors, such as age and family history, cannot be changed. Others, like smoking and lack of exercise, can be changed. Smoking High Cholesterol High Blood Pressure Family History Obesity Age Gender (Males are at higher risk) Lack of Exercise Diabetes Diet Stress Excessive Alcohol Intake If you or someone you know is experiencing the signs and symptoms of a heart attack, DON???T DELAY. Call immediately and seek help. If someone collapses, perform CPR! Do not attempt to drive if you are having symptoms of heart attack. Hands-Only CPR Why Hands-Only CPR? Hands-Only CPR has been shown to be as effective as conventional CPR for cardiac arrests that occur outside of a hospital. Survival depends on immediately receiving CPR from someone nearby. How do you perform Hands-Only CPR? There are two easy steps: Call 9-1-1 if you see a teen or adult collapse Push hard and fast in the center of the chest at a beat of 100 beats per minute. Save a life! 4 WAYS TO GET AHEAD OF SEPSIS SEPSIS is a MEDICAL EMERGENCY. Time matters! Infections put you and your family at risk for a life-threatening condition called sepsis. Sepsis is the body's extreme response to an infection. It is life-threatening, and without timely treatment, sepsis can rapidly lead to tissue damage, organ failure, and . Sepsis happens when an infection you already have-in your skin, lungs, urinary tract or somewhere else-triggers a chain reaction throughout your body. 1 [...] sepsis or if you have an infection that is not getting better or is getting worse. To learn more about sepsis and how to prevent infections, visit www.cdc.gov/sepsis. Test Results Laboratory or Other Results This Visit (last charted value for your 03/08/2021 visit) No Laboratory or Other Results This Visit Patient Name:VANEMARYANNE I have received and understand this information and was given the opportunity to ask questions. Patient/Oil Dipper Name: Patient/Oil Dipper Signature: Relationship to Patient: Clinician/Hospital Oil Dipper Signature: Date: documented in this encounter Plan of Treatment Not on file documented as of this encounter Visit Diagnoses Not on filedocumented in this encounter
--- OUTSIDE RECORDS SUMMARY | 2025-01-13 06:56 | XMS_ITS | Encounter Summary ---
Author Organization [employer] ([place], [place], [place], [place], [place]) Address [address] [place] [address] Care Team Providers Care Onion Farmer Name Role Phone Unavailable Primary Care Provider Unavailabl e Encounter Details Date Type Department Care Team (Late st Contact Info) Description 03/11/2021 Transcribed Document [facility] [place] [facility] [place] [address] ProviderSteve MD [address] [place] [id number] Social History Tobacco Use Types Packs/Day [...] Conversion Note - Steve Faust MD - 03/11/2021 8:26 AM HEAD LIBRARIAN DATE OF SERVICE: 03/10/2021 REPORT TYPE: EEG REFERRING PHYSICIAN: Anamaria Jacob MD REPORT TITLE: Video Electroencephalogram Report STUDY DURATION: 5 hours. HISTORY: This is a 55-year-old woman being evaluated for recurrent seizures. EEG VIDEO MONITORING METHODOLOGY: Time-locked EEG-video monitoring was performed using the 32-channel [employer] monitoring system. The seizure detection computer was [...] SAMPLES: The recording was reviewed. During wakefulness, 9.5 to 10 Hz activity is seen posteriorly intermixed with lower amplitude faster activity in the beta range with a wider distribution. 4 to 5 Hz theta waves are seen independently at F7-T7 and F8-T8. Slow waves are seen more commonly during periods of drowsiness. During sleep, well-formed sleep spindles are noted in both hemispheres. SPIKE DETECTION: The spike detection program was activated during the period of monitoring. Occasional sharply contoured slow waves and rare sharp waves are seen at F7-T7 and F8-T8. EEG DIAGNOSIS: This is an abnormal video EEG study because of: 1. Focal slow wave activity seen at F7-T7 and F8-T8. 2. Occasional sharply contoured slow waves and rare sharp waves at F7-T7 and F8-T8. CLINICAL INTERPRETATION: There was no event reported during the period of monitoring. Continuous EEG recordings showed slow wave activity in the anterior temporal electrodes in both hemispheres, consistent with focal cerebral dysfunction in the anterior temporal regions. Occasional sharply contoured slow waves and rare sharp waves were noted in the temporal electrodes in both hemispheres, raising the possibility of potential epileptogenicity in the temporal regions. /[id number] MD ORESTES Ibarra/JACQUI / TAF / MODL /[id number] Electronically signed by Mónica [facility] Conversion Yarder Engineer Cerner at 06/10/2022 1:13 PM CDT documented in this encounter Plan of Treatment Not on file documented as of this encounter Visit Diagnoses Not on filedocumented in this encounter
--- OUTSIDE RECORDS SUMMARY | 2025-01-13 06:57 | XMS_ITS | Encounter Summary ---
Author Organization [employer] ([place], [place], [place], [place], [place]) Address [address] [place] [address] Care Team Providers Care Road Grader Operator Name Role Phone Unavailable Primary Care Provider Unavailabl e Encounter Details Date Type Department Care Team (Late st Contact Info) Description 03/10/2021 Transcribed Document [facility] [place] [facility] [address] ProviderSteve MD [address] [place] [id number] Social History Tobacco Use Types Packs/Day Years [...] Conversion Note - Historical ProviderMD - 03/10/2021 10:48 AM FLOWER POT PRESS OPERATOR DATE OF ADMISSION: 03/08/2021 DATE OF DISCHARGE: 03/10/2021 FINAL DIAGNOSES: 1. Nonepileptic episodes. 2. Abnormal EEG. HISTORY: This is a 55-year-old woman with long history of excessive daytime somnolence, tiredness, and fatigue. She additionally reports episodes in her sleep including visual hallucinations awakening her from sleep. PAST MEDICAL HISTORY: 1. Depression. 2. Hypertension. HOSPITAL COURSE: The patient was admitted and had video EEG monitoring. She had no clinical event. EEG recording showed focal abnormalities including slow waves, sharply contoured slow waves and rare sharp waves in the temporal electrodes, more prominent on the left. DISPOSITION: I discussed the results of monitoring with the patient. I told her that this study showed no evidence for unrecognized nocturnal seizures. I went over implications of the EEG findings, but did not recommend treatment with an antiseizure medication. PHYSICAL EXAMINATION: On the day of discharge, VITAL SIGNS: Blood pressure 118/66, heart rate 68 per minute and regular. HEENT: Pupils are equal and reactive. LUNGS: Clear. HEART: Regular rate and rhythm. Normal peripheral pulses. NEUROLOGIC: She is alert and well oriented. Normal language functions. Normal cranial nerves. Normal motor exam. DISCHARGE INSTRUCTIONS: 1. Armodafinil 150 mg daily. 2. Aspirin 81 mg daily. 3. Prempro 1 tablet daily. 4. Omeprazole 40 mg daily. 5. Propranolol 20 mg twice daily. 6. Rosuvastatin 10 mg daily. 7. Follow up with Dr. Vyas within 3 months. /[id number] MD ORESTES Ibarra/JACQUI / ORESTES / MODL /[id number] Electronically signed by Mónica [facility] Conversion Behavioral Health Director Cerner at 06/10/2022 1:15 PM CDT documented in this encounter Plan of Treatment Not on file documented as of this encounter Visit Diagnoses Not on filedocumented in this encounter
--- OUTSIDE RECORDS SUMMARY | 2025-01-13 06:57 | XMS_ITS | Encounter Summary ---
Author Organization [employer] ([place], [place], [place], [place], [place]) Address [address] [place] [address] Care Team Providers Care Five Piece Expansion Maker Hand Name Role Phone Unavailable Primary Care Provider Unavailabl e Encounter Details Date Type Department Care Team (Late st Contact Info) Description 03/08/2021 Transcribed Document [facility] [place] [address] ProviderSteve MD [address] [place] [address] Social History Tobacco Use Types Packs/Day Years Used Date Smoking Tobacco: Never Assessed Comments Unknown Sex and Gender Information Value Date Recorded Sex Assigned at Female 08/20/2021 9:01 PM CDT Legal Sex Female 9:01 PM CDT Gender Identity Female 08/20/2021 9:01 PM CDT Sexual Orientation Not on file documented as of this encounter Miscellaneous Notes * [employer]ner Conversion Note - Historical ProviderMD - 03/08/2021 12:10 PM SENIOR CHEMICAL ENGINEER Pain Assessment Entered On: 03/09/2021 10:40 EST Performed On: 03/09/2021 10:02 EST by Carolynn Avila RN Intervention Information: ibuprofen Performed by Carolynn Avila RN on 03/09/2021 09:02:00 EST ibuprofen,600mg Oral,Headache/Pain Pain Assessment Pain Assessment : Follow-up assessment Carolynn Avila RN - 03/09/2021 10:39 EST documented in this encounter Plan of Treatment Not on file documented as of this encounter Visit Diagnoses Not on filedocumented in this encounter
--- OUTSIDE RECORDS SUMMARY | 2025-01-13 06:57 | XMS_ITS | Encounter Summary ---
Author Organization [employer] ([place], [place], [place], [place], [place]) Address [address] [place] [address] Care Team Providers Care Hard Tile Setter Apprentice Name Role Phone Unavailable Primary Care Provider Unavailabl e Encounter Details Date Type Department Care Team (Late st Contact Info) Description 03/10/2021 Transcribed Document [facility] [place] [facility] [place] [address] ProviderSteve MD [facility] [place] [address] Social History Tobacco Use Types Packs/Day [...] Conversion Note - Steve ProviderMD - 03/10/2021 12:22 PM PREVENTIVE MEDICINE OFFICER Final Discharge Planning Entered On: 03/10/2021 12:22 EST Performed On: 03/10/2021 12:22 EST by MARILU FRAGOSO Precinct Police Captain Final Discharge Planning Discharge Arrangements : Patient Post-Acute Information Patient Name: MARYANNE CIFUENTES Gender: Female : [birth year] Age: 55 Years No Post-Acute Placement(s) Listed No Post-Acute Service(s) Listed No Curaspan Referral(s) Listed Discharge To Care Management : Home/Residential/Alf or Self Care -01 MARILU FRAGOSO Precinct Police Captain - 03/10/2021 12:22 EST documented in this encounter Plan of Treatment Not on file documented as of this encounter Visit Diagnoses Not on filedocumented in this encounter
--- OUTSIDE RECORDS SUMMARY | 2025-01-13 06:57 | XMS_ITS | Clinical Summary ---
Author Organization Healthcare [place] [address] Care Team Providers Care Mri Special Procedures Technologist Name Role Phone Pcp, No Primary Care Provider Unavailabl e Allergies Active Allergy Reactions Criticality Noted Date Comments Bupropion Unknown - Patient st ates they do not know rxn details Low 07/23/2016 Immunizations Immunization Administration Dates Next Due Hep A, Adult 05/12/2018,02/11/2018 Hep B, adult 01/21/1989,12/17/1988,06/17/1988 Influenza, seasonal, injectable 12/07/2023 MMR 10/03/2013,09/02/2013 Moderna COVID-19 Vaccine (Re d Cap) 12+ years 03/23/2020,02/22/2020 PPD Skin Test (TB Skin Test) 07/03/2021 Pfizer-BioNTech COVID-19 Vac cine (Pelayo Cap) 12+ years (raul-sucrose) 08/10/2021 Tdap 10/05/2017 Zoster, Recombinant 08/12/2018,02/11/2018 Social History Tobacco Use Types Packs/Day Years Used Date Smoking Tobacco: Never Comments Unknown Sex and Gender Information Value Date Recorded Sex Assigned at Not on file Legal Sex Female 8:37 PM EDT Gender Identity Not on file Sexual Orientation Not on file Last Filed Vital Signs Vital Sign Reading Time Taken Comments Blood Pressure 140/89 01/23/2024 10:00 AM EST Pulse 74 01/23/2024 10:00 AM EST Temperature 37.1 C (98.7 F) 01/23/2024 8:07 AM EST Respiratory Rate 12 01/23/2024 10:00 AM EST Oxygen Saturation 98% 01/23/2024 10:00 AM EST Inhaled Oxygen Concentration - - Weight 103 kg (226 lb 10.1 oz) 01/23/2024 8:07 A M EST Height 172.7 cm (5' 8 ) 02/18/2018 4:02 PM EST Body Mass Index 34.46 02/18/2018 4:02 PM EST Plan of Treatment Upcoming Encounters Date Type Department Care Team (Late st Contact Info) Description 06/13/2025 8:30 AM EDT Ovarian Cancer Screening [facility] [address] [place] [address] Health Maintenance Due Date Last Done Comments [facility]-Depression Screening 1965 [facility]-HIV Screening 1965 [facility]-Hepatitis C Screening 1965 [facility]-Infant/Child/Adol SDOH Screenings 1965 [facility]-Obesity Intervention 1972 [facility]- SDOH Screenings 1984 [facility]-Adult SDOH Screenings 1984 [facility]-Pneumococcal Vaccine: 50+ Years (1 of 2 - PCV) 1985 [facility]-Hepatitis B Vaccines (3 of 3 - 19+ 3-dose series) 03/18/1989 01/21/1989, 12/17/1988, 06/17/1988 CT Colonography 06/08/2011 Colonoscopy 06/08/2011 FIT-DNA 06/08/2011 FIT 06/08/2011 FOBT 06/08/2011 Sigmoidoscopy 06/08/2011 [facility]-Colorectal Cancer Screening 06/08/2011 [facility]-Breast Cancer Screening 01/01/202009/2017, 12/31/2017, 11/14/2016, Additional history exists [facility]-Pap Smear 02/18/2021 02/18/2018, 06/24, 09/06/2014, Additional history exists [facility]-Cervical Cancer Screening 02/18/2023 [facility]-HPV/Cotest 02/18/2023 02/18/2018, 06/24, 09/06/2014, Additional history exists WQG-VFXFB-19 Vaccine ( season) 2024 08/10/2021, 03/23/2020, 02/22/2020 [facility]-Influenza Vaccine (#1) 2024 12/07/2023 [facility]-DTaP,Tdap,and Td Vaccines (2 - Td or Tdap) 10/06/2027 10/05/2017 [facility]-Hepatitis A Vaccines Aged Out 019, 05/12/2018, 02/11/2018 No longer eligible based on patient's age to complete this topic [facility]-Zoster Vaccines Completed 08/12/2018, 8 HPV Vaccines Aged Out No longer eligi ble based on patient's age to complete this topic [facility]-HIB Vaccines Aged Out No longer e ligible based on patient's age to complete this topic [facility]-IPV Vaccines Aged Out No longer e ligible based on patient's age to complete this topic [facility]-Rotavirus Vaccines Aged Out No lo nger eligible based on patient's age to complete this topic Procedures Procedure Name Priority Date/Time Associated Diagnosis Comments CYTO DATA CONVERSION Routine 02/18/2018 12:00 AM EST from Last 3 Months or Most Recently Relevant to Health Maintenance Results * (ABNORMAL) Cytology (02/18/2018 12:00 AM EST) 02/18/2018 02/19/2018 9:1 1 AM EST Narrative SUNQUEST - 02/26/2018 1:34 PM EST [facility] MR #: [id number] [facility] MARYANNE CIFUENTES [place], [place] [address] 1965 (Age: 52) FW Collect Date: 02/18/2018 00:00 Receipt Date: 02/19/2018 09:11 Page 1 DEPARTMENT OF PATHOLOGY AND LABORATORY MEDICINE CYTOPATHOLOGY REPORT Email: [email or web address] ATTENDING MD/Practitioner: Magy Guzman APRN Service: [facility] Location: [facility] Reported: 02/26/2018 13:34 Collected: 02/18/2018 00:00 INTERPRETATION A. THIN PREP (CERVICAL/VAGINAL): HIGH GRADE SQUAMOUS INTRAEPITHELIAL LESION. SATISFACTORY FOR EVALUATION; ENDOCERVICAL/ TRANSFORMATION ZONE COMPONENT PRESENT. Slide scanned and imaged by [employer] ThinPrep Imaging System with manual review of all selected bishop. Please see the ASCCP website (www.asccp.org) for followup recommendations. Electronically Signed Out JESUS Velasquez (ASCP) Christiane Gavin MD Cervical cytology is a screening test primarily for squamous cancers and precursors and has associated false negative and positive results. New technologies such as liquid based sampling may decrease but will not eliminate all false negative results. Regular screening and follow-up of unexplained clinical signs and symptoms are recommended to minimize false negative results. Please see the ASCCP website (www.asccp.org) for followup recommendations. If HPV testing was requested, correlation with the results is suggested (please call Microbiology at [phone] for results). CLINICAL INFORMATION: Menstrual History: Post-menopausal Date of Last Menstrual Period: {Not Provided} Other Clinical Conditions: If ASCUS and > 24 years of age, HPV/DNA testing requested. Patient has a history of previous abnormal pap: ASCUS SPECIMEN DESCRIPTION: A: THIN PREP (CERVICAL/VAGINAL) THIN PREP PROCESS CELLULAR ENHANCEMENT ICD: R87.613 High grade intrepith lesion cyto smr crvx (HGSIL) F: A; DX IMAGE 92434, 77532 C\V (PO) SNOMED CODES: A; F2H649 [id number] [id number] In cases where a pathologist has signed out the report, the service has been rendered in part by a resident. The signing pathologist has performed and is responsible for the reported pathologic evaluation. Jagruti Guzman APRN LAB PATHOLOGY ORDERABLES Fi nal Result SUNQUEST from Last 3 Months or Most Recently Relevant to Health Maintenance Insurance ANTH Care Teams Mri Special Procedures Technologist Relationship Specialty Start Date End Date Pcp, [place] [address] PCP - General Family Medicine 09/15/22
--- OUTSIDE RECORDS SUMMARY | 2025-01-13 06:57 | XMS_ITS | Patient Health Record ---
Author Organization [facility] Address [address] [id number] Care Team Providers Care Payloader Operator Name Role Phone Shalom Mercado Primary Care Provider Tiffanie Carrasquillo Unavailable [phone] Allergies Allergen (clinical drug ingredient) Drug/Non Drug Allergy documented on EMR Reaction Allergy Type Onset Date Status bupropion Wellbutrin XL swelling Drug Allergy Act maddie Results Component Value Reference Range Notes Ultrasound : Head Reviewed date:03/15/2024 09:43:40 AM Interpretation: Performing Lab: Notes/Report: Mammogram Reviewed date:03/17/2024 08:32:24 AM Interpretation: Performing Lab: Notes/Report: Reason For Referral No Information Medications Medication SIG (Take, Route, Frequency, Duration) Notes Start Date End Date Status Ketotifen Fumarate 0.035 % 1 drop into [...] mL Subcutaneous once a week 03/21/2024 Not-Taking Rosuvastatin Calcium 10 MG 1 tablet Oral ly Once a day Active Immunizations Vaccine Route Administration Date Status Comme nts Tetanus Tdap-Adacel (over 7yrs) Unknown 10/05/2017 Administered Shingrix IM Intramuscular 02/11/2018 Administered Shingrix Unknown 02/11/2018 Administered Shingrix IM Intramuscular 08/12/2018 Administered Shingrix Unknown 08/12/2018 Administered MMR Unknown 09/02/2013 Administered MMR Unknown 10/03/2013 Administered Hepatitis B (20 and more) Unknown 06/17/1988 Administer ed Hepatitis B (20 and more) Unknown 12/17/1988 Administer ed Hepatitis B (20 and more) Unknown 01/21/1989 Administer ed Hepatitis A (adult) IM Intramuscular 02/12/2018 Administer ed Hepatitis A (adult) Unknown 05/12/2018 Administered Hepatitis A (adult) IM Intramuscular 08/12/2018 Administer ed COVID 19 Moderna Unknown 02/22/2020 Administered COVID 19 Moderna Unknown 03/23/2020 Administered Problems Problem Type SNOMED Code ICD Code Onset Dates Problem Status W/U Status Risk Notes Problem Constipation (12854544) Constipation (K59.00) Active confirmed Problem Cardiac dysrhythmia (750004372) Cardiac dysrhythmia (I49.9) Active confirmed Problem Mixed anxiety and depressive disorder (257312842) Depression with anxiety (F41.8) Active confirmed Problem Body mass index 30.00 to 34.99 (019650014691599) BMI 31.0-31.9,adult (Z68.31) Active confirmed Problem Body mass index 30.00 to 34.99 (769207969585721) BMI 34.0-34.9,adult (Z68.34) Active confirmed Problem Dyslipidemia (232361176) Dyslipidemia (E78.5) Active confirmed Problem Allergic rhinitis (59229481) Seasonal allergic rhinitis due to other allergic trigger (J30.89) Active confirmed Problem Somnolence (87147178) Has daytime drowsiness (R40.0) Active confirmed Problem Hypersomnia (19782251) Hypersomnolence (G47.10) Active confirmed Problem Cardiac arrhythmia (218792259) Bigeminy (I49.8) Active confirmed Problem Sialolithiasis (75943991) Salivary duct stone (K11.5) Active confirmed Vital Signs Heart Rate 72 /min 01/12/2025 Blood pressure diastolic 80 mm Hg 01/12/2025 Height 66 in 01/12/2025 Blood pressure systolic 128 mm Hg 01/12/2025 Weight 193 lbs 01/12/2025 BMI 31.15 kg/m2 01/12/2025 Encounters Encounter Location Date Provider Diagnosis [facility] [address] [facility] [address] [place], [place] [id number] 03/14/2024 Tiffanie Carrasquillo Lesion of oral mucos a K13.70 ; Salivary duct stone K11.5 ; Weight loss counseling, encounter for Z71.3 and Lesion of neck L98.9 [facility] [address] [facility] [address] [place], [place] [id number] 04/11/2024 Tiffanie Carrasquillo BMI 34.0-34.9,adult Z68.34 [facility] [address] [facility] [address] [place], [place] [id number] 06/14/2024 R Britton Rogelio Depression with anxiety F41.8 [facility] [address] [place], [place] [id number] 01/12/2025 R Britton Rogelio Dyslipidemia E78.5 ; Cardiac dysrhythmia I49.9 ; Depression with anxiety F41.8 and Constipation K59.00 [facility] [address] [place], [place] [id number] 03/17/2024 Tiffanie Carrasquillo [facility] [address] [facility] [address] [place], [place] [id number] 03/17/2024 R Britton Rogelio [facility] [address] [place], [place] [id number] 03/21/2024 Tiffanie Carrasquillo [facility] [address] [place], [place] [id number] 06/22/2024 R Britton Rogelio [facility] [address] [facility] [address] [place], [place] [id number] 06/28/2024 R Britton Rogelio Depression with anxiety F41.8 [facility] [address] [place], [place] [id number] 07/06/2024 R Britton Mercado [facility] [address] [place], [place] [id number] 07/08/2024 R Britton Mercado [facility] [address] [place], [place] [id number] 08/18/2024 R Britton Mercado [facility] [address] [place], [place] [id number] 12/02/2024 R Britton Mercado Assessments Encounter Date Diagnosis (ICD Code) Assessment Notes Treatment Notes Treatment Clinical Notes Section Notes 01/12/2025 Dyslipidemia (ICD-10 - E78.5) 06/28/2024 Depression with anxiety (ICD-10 - F41.8) 06/14/2024 Depression with anxiety (ICD-10 - F41.8) She will decrease her citalopram to half tablet daily for the next 2 weeks then discontinue while starting on the venlafaxine. 03/14/2024 Salivary duct stone (ICD-10 - K11.5) presented this as possible Dx 03/14/2024 Lesion of oral mucosa (ICD-10 - K13.70) has appt for estela replacement on tooth 04/11/2024 BMI 34.0-34.9,adult (ICD-10 - Z68.34) discussed her weekly SQ med for weight loss which is $500 + monthly; encouraged her to have a conversation with her insurance [place] and relate the incorrect statement in the letter that she received from them; discussed food choices and portion sizes; antihistamines for itching 03/14/2024 Weight loss counseling, encounter for (ICD-10 - Z71.3) discussed weight loss plan with healthy foods; portion sizes and eating frequently throughout the day along with regular physical activity; will send RX; once started RTC after 4 doses 01/12/2025 Cardiac dysrhythmia (ICD-10 - I49.9) 03/14/2024 Lesion of neck (ICD-10 - L98.9) probable lentigo ; has annual derm appt and will also have them to assess 01/12/2025 Depression with anxiety (ICD-10 - F41.8) 01/12/2025 Constipation (ICD-10 - K59.00) Plan Of Treatment Pending Test Test Name Order Date Strep Screen 09/13/2020 H-Lipid Panel 01/12/2025 H-CMP 01/12/2025 Insurance Providers Payer Name Payer Address Payer Phone Subscriber Number Group Number Insured Name Patient Relationship to Insured Coverage Start Date Coverage End Date [facility] [address] [place] [address] [id number] DOMINIQUE KOHLER Self - patient is the insured Medical (General) History Medical History History ICD Code allergies fatigue Surgical History Surgery Date(Month/Year) tubal tonsilectomy uterine ablation C-scope - Case 2017
--- OUTSIDE RECORDS SUMMARY | 2025-01-13 06:57 | XMS_ITS | Encounter Summary ---
Author Organization [employer] ([place], [place], [place], [place], [place]) Address [address] [place] [address] Care Team Providers Care Slurry Plant Operator Name Role Phone Unavailable Primary Care Provider Unavailabl e Encounter Details Date Type Department Care Team (Late st Contact Info) Description 03/08/2021 Transcribed Document [facility] [place] Family Medicine [facility] [place] [address] ProviderSteve MD [address] [place] [address] Social History Tobacco Use Types Packs/Day Years [...] Conversion Note - Historical ProviderMD - 03/08/2021 12:15 PM TENT ASSEMBLER Neurodiagnostics Event Note Entered On: 03/08/2021 12:15 EST Performed On: 03/08/2021 12:15 EST by ALICE GLEASON Neurodiagnostic Tech Neurodiagnostics Event Note Neurodiagnostic Event Date/Time : 03/08/2021 12:15 EST Neurodiagnostic Event Location : Neurodiagnostic department Neurodiagnostic Event Details : Procedure completed ALICE GLEASON Neurohayesostic Tech - 03/08/2021 12:15 EST Electronically signed by Mónica [facility] Conversion Chip Loft Worker Cerner at 06/10/2022 1:31 PM CDT documented in this encounter Plan of Treatment Not on file documented as of this encounter Visit Diagnoses Not on filedocumented in this encounter
--- OUTSIDE RECORDS SUMMARY | 2025-01-13 06:57 | XMS_ITS | Encounter Summary ---
Author Organization [employer] ([place], [place], [place], [place], [place]) Address [address] [place] [address] Care Team Providers Care Breaker Hand Name Role Phone Unavailable Primary Care Provider Unavailabl e Encounter Details Date Type Department Care Team (Late st Contact Info) Description 03/08/2021 Transcribed Document [facility] [place] [facility] [place] [address] ProviderSteve MD [facility] [place] [address] Social History Tobacco Use Types Packs/Day Years Used Date Smoking Tobacco: Never Assessed Comments Unknown Sex and Gender Information Value Date Recorded Sex Assigned at Female 08/20/2021 9:01 PM CDT Legal Sex Female 9:01 PM CDT Gender Identity Female 08/20/2021 9:01 PM CDT Sexual Orientation Not on file documented as of this encounter Miscellaneous Notes * Cerner Conversion Note - Historical Provider, - 03/08/2021 1:16 PM HOSTESS PARTY SALES REPRESENTATIVE Admission History, Adult Entered On: 03/08/2021 13:19 EST Performed On: 03/08/2021 13:16 EST by Carolynn Avila RN Advance Directive Patient has Advance Directive *Q : No, patient refuses Advance Directive information Carolynn Avila RN - 03/08/2021 13:16 EST Anesthesia/Transfusion History Family History of Anesthesia Reaction : No prior transfusion(s) Transfusion History : No prior anesthesia Family History of Anesthesia Reaction : None Carolynn Avila RN - 03/08/2021 13:16 EST Functional Assessment Living Situation : Home ZHONG Hx Falls Immediate/Within 3 Months : No Current Home Treatments : None Carolynn Avila RN - 03/08/2021 13:16 EST General Info Want Family/Rep/Phys Notified of Admit : No Emergency Contact #1 : Thom Kohler Emergency Contact #1 Emergency Contact #1 Relationship : Emergency Contact #2 : N/A Emergency Contact #2 Phone Number : . Emergency Contact #2 Relationship : . Primary Language : Ecuadorean Communication Barrier : None Dry Yard Worker Needed : No Carolynn Avila RN - 03/08/2021 13:16 EST Fall Risk Scales ABCs Fall Injury Risk Identification : None ZHONG Hx Falls Immediate/Within 3 Months : No Zhong Secondary Diagnosis : No ZHONG Use of Ambulatory Aid : None ZHONG IV Therapy or IV Access : No Zhong Gait/Transferring : Normal, bedrest, immobile Zhong Mental Status : Oriented to own ability Zhong Fall Risk Score : 0 ZHONG Fall Scale Risk Level : 0-24 Low Risk [place] Fall Interventions : Adequate lighting Barriers to Learning : None evident Learning Style Preferences Family : None Learning Style Preferences Patient : None Carolynn Avila RN - 03/08/2021 13:16 EST Health Histories Smoking Status : Never (less than 100 in lifetime; none in last 30 days) Smokeless Tobacco Status : Never Carolynn Avila RN - 03/08/2021 13:16 EST Social History (As Of: 03/08/2021 13:19:10 EST) Height and Weight, Clinical Dosing Height Source : Stated Height Entry Format : [place]ord Height, Feet : 5 ft(Converted to: 152 cm, 60 Inch) Height, Inches : 8 Inch(Converted to: 0 ft 8 Inch, 20.32 cm) Clinical Height : 172.72 cm Weight Source : Bed scale Weight Entry Format : [place]ord Clinical Dosing Weight : 93.18 kg Weight, Pounds : 205 lb Body Surface Area (BSA) : 2.07 m2 Body Mass Index : 31.2 kg/m2 (HI) Reliance Body Weight : 63 kg Carolynn Avila RN - 03/08/2021 13:16 EST Infectious Disease History Does patient have symptoms of COVID-19? : No Has the Patient Been Tested for COVID-19 in the last 14 days? : No, Patient stated Does the Patient state known exposure to a COVID-19 positive case in the last 14 days? : No Patient Vaccinated for COVID-19 : Fully vaccinated Carolynn Avila RN - 03/08/2021 13:16 EST Infectious Disease Risk Screening Grid Cough < 2 wks of unknown origin : NO Cough > 2 weeks : NO Blood in Sputum : NO Fever or self-reported Fever : NO Rash of unknown origin : NO Headache : NO Stiff neck : NO Night Sweats : NO Unexplained Weight Loss : NO Diarrhea (3 episode per day) : NO Carolynn Avila RN - 03/08/2021 13:16 EST Physical contact outside [place] in the last 30 days : No Hospitalized in Foreign Country : No Infectious Disease History : None INF Disease TB Screening Calc : 0 INF Disease Recent Travel Calc : 0 Carolynn Avila RN - 03/08/2021 13:16 EST Influenza Vaccine Asmt, Adult Previous Vaccines from Immunization Schedule : No qualifying data available. Influenza Immunization, Current Season : Yes Carolynn Avila RN - 03/08/2021 13:16 EST Pneumococcal Vaccine Previous Vaccines from Immunization Schedule : No qualifying data available. Pneumonia Immunization Received : No Pneumococcal Risk Assessment < Age 65 : None Carolynn Avila RN - 03/08/2021 13:16 EST Order Details Patient Needs Meds Crushed/Liquid : No Carolynn Avila RN - 03/08/2021 13:16 EST Nutrition History Eating Poorly Due to Decreased Appetite : No Unplanned Weight Loss in Past 3-6 Months : No Malnutrition Screening Tool Total(mal) : 0 Malnutrition Screening Tool Risk Level : Patient not at risk Carolynn Avila RN - 03/08/2021 13:16 EST [place] Suicide Severity Rating Scale (C-SSRS) CSSRS Past Month Wish to be : No CSSRS Past Month Suicidal Thoughts : No CSSRS Lifetime Suicide Behavior : No Suicide Severity Rating Score : 0 Suicide Severity Rating : No Additional Care Required at this time Carolynn Avila RN - 03/08/2021 13:16 EST Psychosocial History Currently in Unsafe Situation : No Carolynn Avila RN - 03/08/2021 13:16 EST Sleep Apnea Risk Assmt Hx of Obstructive Sleep Apnea Diagnosis : No Snore Loudly : No Tired, Fatigued, or Sleepy During Day : No Observed Stopping Breathing During Sleep : No Have/Are Being Treated for Hypertension : No BMI Greater Than 35 kg/m2 : No Age over 50 Years Old : Yes Neck Circumference Greater Than 40 cm : No Gender Male : No STOP-BANG Sleep Apnea Risk Level Score : 1 Carolynn Avila RN - 03/08/2021 13:16 EST Valuables and Belongings Valuables and Belongings : Clothing Clothing : Common streetwear, Sleepwear Clothing Disposition : Bedside, With patient, Declines to send to security/safe Carolynn Avila RN - 03/08/2021 13:16 EST Electronically signed by [facility], [facility] Conversion Scorer Single Cerner at 06/10/2022 1:39 PM CDT documented in this encounter Plan of Treatment Not on file documented as of this encounter Visit Diagnoses Not on filedocumented in this encounter
--- OUTSIDE RECORDS SUMMARY | 2025-01-13 06:57 | XMS_ITS | Encounter Summary ---
Author Organization [employer] ([place], [place], [place], [place], [place]) Address [address] [place] [address] Care Team Providers Care Application Designer Name Role Phone Unavailable Primary Care Provider Unavailabl e Encounter Details Date Type Department Care Team (Late st Contact Info) Description 03/09/2021 Transcribed Document [facility] [place] [facility] [place] [address] ProviderSteve MD [address] [place] [address] Social History Tobacco Use Types Packs/Day [...] Conversion Note - Steve Faust MD - 03/09/2021 8:50 AM SPIN TANK TENDER DATE OF SERVICE: 03/08/2021 REPORT TYPE: EEG REFERRING PHYSICIAN: Anamaria Jacob MD REPORT TITLE: Video Electroencephalogram Report STUDY DURATION: One day. HISTORY: This is a 55-year-old woman, being evaluated for recurrent seizures. EEG VIDEO MONITORING METHODOLOGY: Time-locked EEG-video monitoring was performed using the 32-channel fluid Operations monitoring system. The seizure detection computer was [...] wider distribution. 4 to 5 Hz theta waves, rarely somewhat sharply contoured, are noted at F8-T8. Similar activity is noted independently at F7-T7. 2 to 3 Hz higher amplitude delta waves are noted on occasion in a similar distribution, more commonly during periods of drowsiness. During sleep, well-formed sleep spindles are seen in both hemispheres. SPIKE DETECTION: The spike detection program was activated during the period of monitoring. There were occasional sharply contoured slow waves and rare sharp waves noted at F7-T7 and F8-T8. EEG DIAGNOSES: This is an abnormal video EEG study because of: 1. Focal slow wave activity noted at F7-T7 and independently at F8-T8. 2. Occasional sharply contoured slow waves and rare sharp waves at F7-T7 and F8-T8. CLINICAL INTERPRETATION: The patient had no clinical event during the period of monitoring. Continuous EEG recordings showed no electrographic ictal discharge. EEG recording showed slow wave activity in the anterior temporal electrodes consistent with focal cerebral dysfunction in the anterior temporal regions. Additionally, occasional sharply contoured slow waves and rare sharp waves were seen in the temporal electrodes, raising the possibility of potential epileptogenicity in the temporal regions. /[id number] MD ORESTES Ibarra/JACQUI / TAF / MODL /[id number] documented in this encounter Plan of Treatment Not on file documented as of this encounter Visit Diagnoses Not on filedocumented in this encounter
--- OUTSIDE RECORDS SUMMARY | 2025-01-13 06:57 | XMS_ITS | Referral Summary ---
Author Organization [employer] ([place], [place], [place], [place], [place]) Address [address] [place] [address] Care Team Providers Care General Pediatrician Name Role Phone Unavailable Primary Care Provider [...]
--- OUTSIDE RECORDS SUMMARY | 2025-01-13 06:57 | XMS_ITS | Encounter Summary ---
Author Organization [employer] ([place], [place], [place], [place], [place]) Address [address] [place] [address] Care Team Providers Care Telephone Plant Power Operator Name Role Phone Unavailable Primary Care Provider Unavailabl e Encounter Details Date Type Department Care Team (Late st Contact Info) Description 03/09/2021 Transcribed Document [facility] [place] Family [place] [facility] [place] [address] ProviderSteve MD [address] [place], [place] [id number] Social History Tobacco Use Types Packs/Day Years Used Date Smoking Tobacco: Never Assessed Comments Unknown Sex and Gender Information Value Date Recorded Sex Assigned at Female 08/20/2021 9:01 PM CDT Legal Sex Female 9:01 PM CDT Gender Identity Female 08/20/2021 9:01 PM CDT Sexual Orientation Not on file documented as of this encounter Miscellaneous Notes * Cerner Conversion Note - Historical ProviderMD - 03/09/2021 10:47 AM QUARANTINE OFFICER UM Authorization Entered On: 03/09/2021 10:47 EST Performed On: 03/09/2021 10:47 EST by HEIDI NIETO RN Primary Insurance Authorization Authorization and Policy Numbers : Insurance 1 Health Plan: [employer] Policy Number: [id number] Authorization Number: Insurance 2 Health Plan: ANTHEM HMOPPO Policy Number: [id number] Authorization Number: Insurance Primary Name : [employer] Policy Number: [id number] Historical Authorization Comments-Primary : No Authorization Comments Found HEIDI NIETO RN - 03/09/2021 10:47 EST Electronically signed by Josi Sales Conversion Vice President Of Talent Acquisition Cerner at 06/10/2022 1:22 PM CDT documented in this encounter Plan of Treatment Not on file documented as of this encounter Visit Diagnoses Not on filedocumented in this encounter
--- OUTSIDE RECORDS SUMMARY | 2025-01-13 06:57 | XMS_ITS | Encounter Summary ---
Author Organization [employer] ([place], [place], [place], [place], [place]) Address [address] [place] [address] Care Team Providers Care Wool Supplier Name Role Phone Unavailable Primary Care Provider Unavailabl e Encounter Details Date Type Department Care Team (Late st Contact Info) Description 03/09/2021 Transcribed Document [facility] [place] [facility] [place] [address] ProviderSteve MD [facility] [place] [address] Social History Tobacco Use Types [...] Cerner Conversion Note - Steve ProviderMD - 03/09/2021 11:03 AM ATM MECHANIC Patient: MARYANNE CIFUENTES Age: 55 years Sex: Female : 1965 Associated Diagnoses: None Author: LINDSAY PALMA MD-MILES Subjective Seizure: Yes [ ] No [x ] Event: Yes [ ] No [x ] ROS Complaint: Yes [ ] No [x ] Headache: Yes [ ] No [ ] Cardiac: Yes [ ] No [ ] Pulmonary: Yes [ ] No [ ] GI: Yes [ ] No [ ] : Yes [ ] No [ ] Skeletal: Yes [ ] No [ ] Health Status Allergies: Allergic Reactions (Selected) No Known Medication Allergies, Allergies (1) Active Reaction No Known Medication Allergies None Documented Current medications: (Selected) Inpatient Medications Ordered Phenergan: 25 mg, Oral, Q6H, PRN: Nausea/Vomiting aspirin: 81 mg, Oral, Daily ibuprofen: 600 mg, Oral, Q6H, PRN: Headache/Pain nicotine 21 mg/24 hr transdermal film, extended release: 1 Patch, TransDermal, Daily, PRN: Smoking Cessation pantoprazole: 40 mg, Oral, Daily propranolol: 20 mg, Oral, BID rosuvastatin: 10 mg, Oral, Daily Incomplete Prempro 0.3 mg-1.5 mg oral tablet: 1 Tab, Oral, Daily armodafinil 150 mg oral tablet: 150 mg, 1 Tab, Oral, Daily Documented Medications Documented Aspirin Low Dose 81 mg oral delayed release tablet: 1 Tab, Oral, Daily, 0 Refill(s) Prempro 0.3 mg-1.5 mg oral tablet: 1 Tab, Oral, Daily, 0 Refill(s) armodafinil 150 mg oral tablet: 1 Tab, Oral, Daily, 0 Refill(s) omeprazole 40 mg oral delayed release capsule: 1 Cap, Oral, Daily, before a meal, 30 Cap, 0 Refill(s) propranolol 20 mg oral tablet: 1 Tab, Oral, BID, 180 Tab, 0 Refill(s) rosuvastatin 10 mg oral tablet: 1 Tab, Oral, Daily, 30 Tab, 0 Refill(s), Home Medications (6) Active armodafinil 150 mg oral tablet 150 mg = 1 Tab, Oral, Daily Aspirin Low Dose 81 mg oral delayed release tablet 81 mg = 1 Tab, Oral, Daily omeprazole 40 mg oral delayed release capsule 40 mg = 1 Cap, Oral, Daily Prempro 0.3 mg-1.5 mg oral tablet 1 Tab, Oral, Daily propranolol 20 mg oral tablet 20 mg = 1 Tab, Oral, BID rosuvastatin 10 mg oral tablet 10 mg = 1 Tab, Oral, Daily , Medications (7) Active Scheduled: (4) aspirin EC 81 mg tab 81 mg 1 Tab, Oral, Daily pantoprazole EC 40 mg tab 40 mg 1 Tab, Oral, Daily propranolol 20 mg tab 20 mg 1 Tab, Oral, BID rosuvastatin 10 mg tab 10 mg 1 Tab, Oral, Daily Continuous: (0) PRN: (3) ibuprofen 600 mg tab 600 mg 1 Tab, Oral, Q6H nicotine 21 mg/24 hr patch 1 Patch, TransDermal, Daily promethazine 25 mg tab 25 mg 1 Tab, Oral, Q6H Problem list: No problem items selected or recorded., No qualifying data available Objective VS/Measurements Vital Signs/Vital Measures 03/09/2021 9:00 EST Heart Rate, Apical Not Done: Patient Refused (Not Done) 03/09/2021 6:00 EST Systolic Blood Pressure 114 mmHg Diastolic Blood Pressure 66 mmHg Mean Arterial Pressure (MAP)-BMDI 80 Temperature Source Oral Temperature Mode Fahrenheit Temperature, Fahrenheit 98.4 Deg F Clinical Temperature, C 36.9 Deg C Heart Rate Monitored 62 bpm Respiratory Rate 18 Breaths/Min Oxygen Saturation 95 % Oxygen Therapy Mode Room air 03/08/2021 21:00 EST Heart Rate, Apical Not Done: taken her own medication (Not Done) 03/08/2021 18:30 EST Systolic Blood Pressure 113 mmHg Diastolic Blood Pressure 65 mmHg Mean Arterial Pressure (MAP)-BMDI 80 Temperature Source Oral Temperature Mode Fahrenheit Temperature, Fahrenheit 97.2 Deg F Clinical Temperature, C 36.2 Deg C Heart Rate Monitored 65 bpm Respiratory Rate 15 Breaths/Min Oxygen Saturation 98 % Oxygen Therapy Mode Room air 03/08/2021 12:10 EST Heart Rate, Apical Not Done: Not Appropriate at this Time (Not Done) 03/08/2021 10:38 EST Systolic Blood Pressure 120 mmHg Diastolic Blood Pressure 80 mmHg Mean Arterial Pressure (MAP)-BMDI 96 Temperature Source Oral Temperature Mode Fahrenheit Temperature, Fahrenheit 98 Deg F Clinical Temperature, C 36.7 Deg C Heart Rate Monitored 65 bpm Respiratory Rate 16 Breaths/Min Oxygen Saturation 100 % Oxygen Therapy Mode Room air , Measurements from flowsheet : Measurements 03/08/2021 13:16 EST Height Source Stated Height Entry Format Nisula Height/Length, SYRIAN (ft) 5 ft Height/Length SYRIAN 8 Inch CLINICALHEIGHT 172.72 cm Marion Body Weight 63 kg Weight Source Bed scale Weight Entry Format Nisula Weight Gibraltarian lb 205 lb CLINICALWEIGHT 93.18 kg Body Surface Area (BSA) 2.07 m2 Body Mass Index 31.2 kg/m2 HI , Vitals Signs (last 24 hrs) Last Charted Minimum Maximum Temp 98.4 (MAR 09 06:00) 97.2 (MAR 08 18:30) 98.4 (MAR 09:00) Mon HR 62 (MAR 09 06:00) 62 (MAR 09:00) 65 (MAR 08 18:30) Resp Rate 18 (MAR 09 06:00) 15 (MAR 08:30) 18 (MAR 09 06:00) SBP 114 (MAR 09 06:00) 113 (MAR 08:30) 114 (MAR 09 06:00) DBP 66 (MAR 09:00) 65 (MAR 08 18:30) 66 (MAR 09 06:00) MAP 80 (MAR 09:) 80 (MAR 08:30) 80 (MAR 08:30) SpO2 95 (MAR 09:) 95 (MAR 09:00) 98 (MAR 08:) General: Alert and oriented. Eye: Pupils are equal, round and reactive to light. Neurologic: Normal motor function, No focal deficits, Cranial Nerves II-XII are grossly intact. Psychiatric: Appropriate mood & affect. Results Review Continuous EEG: Bilateral temporal slow waves and occasional sharply contoured slow waves Impression and Plan Discussed findings with patient. 1. Continue video EEG monitoring. 2. Encouraged increase in level of activity. 3. Sleep deprivation: Yes [ ] No [x ] documented in this encounter Plan of Treatment Not on file documented as of this encounter Visit Diagnoses Not on filedocumented in this encounter
--- OUTSIDE RECORDS SUMMARY | 2025-01-13 06:57 | XMS_ITS | Clinical Summary ---
[facility] Organization [facility] Address [address] [place] [id number] Care Team Providers Care Catering Coordinator Name Role Phone Jagruti Guzman APRN Primary Care Provider Family History Medical History Relation Name Comments Breast cancer Maternal Aunt Breast cancer Maternal Grandmother Breast cancer Paternal Grandmother Ovarian cancer Neg Hx Relation Name Status Comments Maternal Aunt Maternal Grandmother Paternal Grandmother Social History Tobacco Use Types Packs/Day Years Used Date Smoking Tobacco: Never Assessed Abuse Screen Answer Date Recorded Unsafe at Home or Work/School Not on file Feels Threatened by Someone? Not on file 10/2022 Does Anyone Keep You from Co ntacting Others or Doint Things Outside the Home? Not on file 12/01/2022 Physical Sign of Abuse Present Not on file 1 Housing Stability Answer Date Recorded Current Living Arrangements Not on file 10/2022 Potentially Unsafe Housing Conditions Not on mimi e 12/01/2022 Family and Community Support Answer Srinivasan e Recorded Help with Day-to-Day Activities Not on file 12/01/2022 Lonely or Isolated Not on file 12/01/2022 Employment Answer Date Recorded Do you want help finding or keeping work or a toney b? Not on file 12/01/2022 Disabilities Answer Date Recorded Concentrating, Remembering, or Making Decisions Difficulty Not on file 12/01/2022 Doing Errands Independently Difficulty Not on fi le 12/01/2022 Education Answer Date Recorded Help with school or training? Not on file Preferred Language Not on file 12/01/2022 Comments No Sex and Gender Information Value Date Recorded Sex Assigned at Not on file Legal Sex Female 10:56 AM EDT Gender Identity Not on file Sexual Orientation Not on file Plan of Treatment Health Maintenance Due Date Last Done Comments ANNUAL PHYSICAL 1965 Annual Gynecologic Pelvic an d Breast Exam 1965 HEPATITIS C SCREENING 1965 TDAP/TD VACCINES (1 - Tdap) 1985 COLOGUARD 06/08/2011 COLON CANCER SCREENING 5 YEA R SIGMOIDOSCOPY 06/08/2011 COLONOSCOPY 06/08/2011 COLORECTAL CANCER SCREENING 06/08/2011 CT COLONOGRAPHY 06/08/2011 FECAL OCCULT BLOOD TEST 06/08/2011 FIT Testing (1 year) 06/08/2011 Pneumococcal Vaccine 50+ (1 of 1 - PCV) 2016 ZOSTER VACCINE (1 of 2) 2016 MAMMOGRAM 01/01/2020 12/31/2017, 10/25, 10/31/2015, Additional history exists INFLUENZA VACCINE 09/23/2024 Procedures Procedure Name Priority Date/Time Associated Diagnosis Comments MAMMO SCREENING DIGITAL TOMOSYNTHESIS BILATERAL W CAD Routine 12/31/2017 3:55 PM EST Visit for screening mammogram from Last 3 Months or Most Recently Relevant to Health Maintenance Results * Mammo Screening Digital Tomosynthesis Bilateral With CAD (12/31/2017 3:55 PM EST) Anatomical Region Laterality Modality Breast N/A Mammography 01/02/2018 6:44 PM EST Impressions 01/02/2018 6:44 PM EST No findings suspicious for malignancy. ACR BI-RADS CATEGORY: 1, NEGATIVE RECOMMENDATION: Yearly mammogram, yearly clinical breast exam, and encourage self breast awareness. CAD was used. The standard false negative rate of mammography is between 10% and 25%. Complex patterns or increased breast density will markedly elevate the false negative rate of mammography. A letter, in lay terminology, with the results of this exam will be mailed to the patient. If there is a palpable area of concern, biopsy should be considered regardless of imaging findings. This report was finalized on 01/02/2018 6:[address] Shanti Wilson MD. Narrative 01/02/2018 6:44 PM EST ROUTINE DIGITAL SCREENING MAMMOGRAM WITH TOMOSYNTHESIS HISTORY: Routine screening. IMAGE COMPARISON: 11/14/2016, 10/31/2015, 03/28/2014. TECHNIQUE: Low dose full field digital breast tomosynthesis imaging was performed with 2D and 3D acquisitions consisting of bilateral CC and MLO views. FINDINGS: There are scattered areas of fibroglandular density. The fibroglandular pattern appears stable. There is no mass, worrisome microcalcifications, or architectural distortion to suggest development of malignancy. Jagruti Guzman APRN IMG MAMMOGRAPHY ORDERAB LES Final Result from Last 3 Months or Most Recently Relevant to Health Maintenance Insurance R Care Teams Catering Coordinator Relationship Specialty Start Date End Date Jagruti Guzman APRN [address] [place] [id number] PCP - General Family Medicine 10/23/15
--- OUTSIDE RECORDS SUMMARY | 2025-01-13 06:57 | XMS_ITS | Encounter Summary ---
Author Organization [employer] ([place], [place], [place], [place], [place]) Address [address] [place] [address] Care Team Providers Care Manager Battery Name Role Phone Unavailable Primary Care Provider Unavailabl e Encounter Details Date Type Department Care Team (Late st Contact Info) Description 03/08/2021 Transcribed Document [facility] [place] Family Medicine [facility] [place] [address] ProviderSteve MD [address] [place] [address] Social History Tobacco Use Types [...] Conversion Note - Historical ProviderMD - 03/08/2021 10:20 AM PREP ROOM SUPERVISOR Meds to Bed Enrollment Entered On: 03/08/2021 10:22 EST Performed On: 03/08/2021 10:20 EST by Andres Rasmussen Fitness Instructor Cert Lead Meds to Bed Enrollment Patient Enrollment Decision: : Yes/enroll in meds to bed program Andres Rasmussen Fitness Instructor Cert Lead - 03/08/2021 10:22 EST documented in this encounter Plan of Treatment Not on file documented as of this encounter Visit Diagnoses Not on filedocumented in this encounter
--- OUTSIDE RECORDS SUMMARY | 2025-01-13 06:57 | XMS_ITS | Encounter Summary ---
Author Organization [employer] ([place], [place], [place], [place], [place]) Address [address] [place] [address] Care Team Providers Care Traffic Line Painter Name Role Phone Unavailable Primary Care Provider Unavailabl e Encounter Details Date Type Department Care Team (Late st Contact Info) Description 03/08/2021 Transcribed Document [facility] [place] [facility] [place] [address] ProviderSteve MD [address] [place], [place] [id number] Social History Tobacco Use Types Packs/Day Years Used Date Smoking Tobacco: Never Assessed Comments Unknown Sex and Gender Information Value Date Recorded Sex Assigned at Female 08/20/2021 9:01 PM CDT Legal Sex Female 9:01 PM CDT Gender Identity Female 08/20/2021 9:01 PM CDT Sexual Orientation Not on file documented as of this encounter Miscellaneous Notes * Cerner Conversion Note - Steve ProviderMD - 03/08/2021 11:40 AM CORPORATE SAFETY MANAGER Education-(VTE) / (DVT) Entered On: 03/08/2021 11:46 EST Performed On: 03/08/2021 11:40 EST by Carolynn Avila RN Teaching/Learning Assessment Barriers To Learning : None evident Learning Style Preferences Patient : None Learning Style Preferences Family : None Carolynn Avila RN - 03/08/2021 11:46 EST Education Topics: VTE/DVT Education Topics: VTE/DVT Activity Limitations/Expectations : Verbalizes understanding Antiembolic hose : Verbalizes understanding VTE/DVT prophylaxis : Verbalizes understanding Foot Pumps : Verbalizes understanding Medications : Verbalizes understanding Sequential Compression Device : Verbalizes understanding Smoking Cessation : Verbalizes understanding Risk for developing a VTE : Verbalizes understanding Signs and symptoms of a VTE : Verbalizes understanding Treatment/prophylaxis for VTE : Verbalizes understanding Encourage early ambulation : Verbalizes understanding VTE/DVT, Other : Verbalizes understanding Carolynn Avila RN - 03/08/2021 11:46 EST Electronically signed by Mónica [facility] Conversion Cloth Hand Cerner at 06/10/2022 1:32 PM CDT documented in this encounter Plan of Treatment Not on file documented as of this encounter Visit Diagnoses Not on filedocumented in this encounter
--- OUTSIDE RECORDS SUMMARY | 2025-01-13 06:57 | XMS_ITS | Encounter Summary ---
Author Organization [employer] ([place], [place], [place], [place], [place]) Address [address] [place] [address] Care Team Providers Care Neurology Physician Name Role Phone Unavailable Primary Care Provider Unavailabl e Encounter Details Date Type Department Care Team (Late st Contact Info) Description 03/08/2021 Transcribed Document [facility] [place] [facility] [place] [address] ProviderSteve MD [address] [place], [place] [id number] Social History Tobacco Use Types Packs/Day Years [...] Conversion Note - Steve Faust MD - 03/08/2021 1:42 PM CROSSING WATCHMAN EPILEPSY ADMISSION NOTE DATE OF ADMISSION: 03/08/2021 ADMITTING PHYSICIAN: LINDSAY PALMA MD REASON FOR ADMISSION: Recurrent seizures. HISTORY: This is a 55-year-old woman who has had excessive daytime somnolence, tiredness and fatigue. She has had an extensive evaluation with no definite etiology identified for symptoms. She has also had visual hallucinations out of sleep. ALLERGIES: Bupropion. MEDICATIONS AT HOME: 1. Omeprazole 40 mg daily. 2. Aspirin 81 mg daily. 3. Armodafinil 150 mg daily. 4. Prempro one tablet daily. 5. Propranolol 20 mg twice daily. 6. Rosuvastatin 10 mg daily. PAST MEDICAL HISTORY: 1. Cervical cancer. 2. Depression. 3. Hypertension. FAMILY HISTORY: 1. Migraine. 2. Alzheimer disease. SOCIAL HISTORY: She does not smoke or consume alcohol. REVIEW OF SYSTEMS: She reports no significant headaches. She has had difficulties with memory function and irregular sleep. She reports paresthesias and intermittent unsteadiness. She has had abdominal discomfort. She denies symptoms referable to the cardiac, pulmonary, or genitourinary systems. She reports symptoms of anxiety, but denies suicidal ideation. PHYSICAL EXAMINATION: On the day of admission: VITAL SIGNS: Blood pressure 120/80, heart rate 65 per minute and regular, respiratory rate 16 per minute. HEENT: Pupils equal and reactive. NECK: Supple. Normal carotid pulses. LUNGS: Clear. HEART: Regular rate and rhythm. Normal peripheral pulses. NEUROLOGIC: She is alert and well oriented. Normal language functions. Cranial nerves: Full range of motion of extraocular muscles. Symmetric facial contractions. Normal tongue movements. Her motor examination was normal with normal strength in the upper and lower extremities. Coordination: Normal wzzmcj-un-tuiv. IMPRESSION: Ms. Kohler has had episodic symptoms that include visual hallucinations out of sleep. She could have focal or partial onset seizures. Alternatively, her episodes may be nonepileptic in nature. PLAN: 1. Admit to the epilepsy monitoring unit. 2. Start video EEG monitoring. 3. Seizure precautions. 4. Continue home medications. /[id number] MD ORESTES Ibarra/JACQUI / ORESTES / MODL documented in this encounter Plan of Treatment Not on file documented as of this encounter Visit Diagnoses Not on filedocumented in this encounter
[2025-01-13 08:40] LABS: Alanine Aminotransferase 27 U/L (12-78); Albumin Level 4.7 g/dl (3.5-5.0); Albumin/Globulin Ratio 1.5 (1.1-1.8); Alkaline Phosphatase 79 U/L (38-126); Anion Gap 8.8 mEq/L (5-15); Aspartate Amino Transferase 31 U/L (14-36); Bilirubin,Total 0.5 mg/dl (0.2-1.3); Blood Urea Nitrogen 14 mg/dl (7-17); Calcium 9.9 mg/dl (8.4-10.2); Carbon Dioxide 28 mmol/L (22.0-30.0); Chloride 104 mmol/L (98-107); Cholesterol 118 mg/dl (140-200); Creatinine,Serum 0.80 mg/dl (0.52-1.04); Estimated Glomerular Filt Rate 74 ml/min (>60); GFR (African American) 89 ML/MIN (>60); Globulin 3.1 g/dL (1.3-3.2); Glucose 88 mg/dl (74-100); HDL Cholesterol 60 mg/dl (40-60); Potassium 3.8 mmoL/L (3.5-5.1); Sodium 137 mmol/L (136-145); Total Protein,Serum 7.8 g/dl (6.3-8.2); Triglycerides 75 mg/dl (30-150)
== END 2025-01-13 23:59 | disposition home or self-care (01) ==
LOC: LAB 06:54
PROVIDERS: PCP Family Medicine; Visit Provider Family Medicine
DX: E78.5 Hyperlipidemia, unspecified (principal); I49.9 Cardiac arrhythmia, unspecified
CPT/HCPCS: 80053; 80061

== ENCOUNTER 2025-02-10 06:53 | Outpatient (CLI) | payer BC, SELFPAY ==
--- OUTSIDE RECORDS SUMMARY | 2024-03-14 08:15 | XMS_ITS ---
Author Organization [facility] Address [address] [phone] Care Team Providers Care Sustainable Products Marketing Manager Name Role Phone Shalom Mercado Primary Care Provider Tiffanie Carrasquillo Unavailable [phone] Allergies Allergen (clinical drug ingredient) Drug/Non Drug [...] Status W/U Status Risk Notes Problem Sialolithiasis (06221708) Salivary duct stone (K11.5) Active confirmed Vital Signs Blood pressure systolic 110 mm Hg 03/14/19 25 Blood pressure diastolic 70 mm Hg 025 Heart Rate 62 /min 03/14/2024 Height 66 in 03/14/2024 Weight 226 lbs 03/14/2024 BMI 36.47 kg/m2 03/14/2024 Encounters Encounter Location Date Provider Diagnosis [facility] [address] [place], [place] [phone] 03/14/2024 Tiffanie Carrasquillo Lesion of oral mucos [...] * CELE CIFUENTESOB:1965 ( 59 yo F)Acc No.[id number]:03/14/2024 Progress Notes Patient: DOMINIQUE MONGE Provider: NEHAL Hopson :1965 A ge:58 Y S ex:Female Date:03/14/2024 Address:[place], [id number] Pcp:Shalom Mercado Subjective: * Chief Complaints: * [...] * Images: Billing Information: * Visit Code: 86773 Office Visit, Est Pt., Level 4. * Procedure Codes: * Electronic signature of Shira Carrasquillo APRN on 02/10/2025 at 06:56 AM EST Sign off status: Pending * Provider: NEHAL Hopson Date: 0 03/14/2024 Generated for Denia quinonez/Crow/eTjudy on: 04/13/2024 06:56 AM EST History and Physical Notes [...]
--- OUTSIDE RECORDS SUMMARY | 2024-04-11 08:30 | XMS_ITS ---
Author Organization [facility] Address [address] [phone] Care Team Providers Care Documentation Designer Name Role Phone Shalom Mercado Primary Care Provider Tiffanie Carrasquillo Unavailable [phone] Allergies Allergen (clinical drug ingredient) Drug/Non Drug [...] [address] [place] [phone] 04/11/2024 Tiffanie Carrasquillo BMI 34.0-34.9,adult Z68.34 Assessments [...] * OSWALDO CIFUENTESDEEJAYOB:1965 ( 59 yo F)Acc No.[id number]:04/11/2024 Progress Notes Patient: DOMINIQUE MONGE Provider: NEHAL Hopson :1965 A ge:58 Y S ex:Female Date:04/11/2024 Address:[address] [place], [place] [id number] Pcp:Shalom Mercado Subjective: * Chief Complaints: * [...] leg edema. Assessment: * Assessment: 1. B VA 34.0-34.9,adult - Z68.34 (Primary) Plan: * Treatment: * Procedure Codes: 3 074F SYST BP LT 130 MM HG, 3078F DIAST BP < 80 MM HG * Follow Up: 4 Weeks * Images: Billing Information: * Visit Code: 23479 Office Visit, Est Pt., Level 3. * Procedure Codes: 3074F SYST BP LT 130 MM HG. 3078F DIAST BP < 80 MM HG. * Electronic signature of Shira Carrasquillo APRN on 02/10/2025 at 06:55 AM EST Sign off status: Pending * Provider: NEHAL Hopson Date: 0 04/11/2024 Generated for Denia quinonez/Crow/Jesus on: 1 04/13/2024 06:55 AM EST History and Physical Notes * [...]
--- OUTSIDE RECORDS SUMMARY | 2024-05-09 08:15 | XMS_ITS ---
Author Organization [facility] Address [address] [facility] [address] [place] [phone] Care Team Providers Care Head Of Cytogenetics Name Role Phone Shalom Mercado Primary Care Provider [phone] Tiffanie Carrasquillo [phone] Allergies Allergen (clinical drug ingredient) Drug/Non Drug Allergy documented on EMR Reaction Allergy Type Onset Date Status bupropion Wellbutrin XL swelling Drug Allergy Act maddie REASON FOR VISIT 4 week f/u Encounters Encounter Location Date Provider Diagnosis [facility] [address] [place] [phone] 05/09/2024 Tiffanie Carrasquillo Plan Of Treatment No Information Progress Notes * CELE CIFUENTESOB:1965 ( 59 yo F)Acc No.[id number]:05/09/2024 Patient: Shade MORSE DOMINIQUE Provider: NEHAL Hopson :1965 A ge:58 Y S ex:Female Date:05/09/2024 Address:[address] [place], [place] [id number] Pcp:Shalom Mercado Subjective: * Chief Complaints: * [...] 05/09/2024 Generated for Denia quinonez/Crow/Augustitting on: 1 04/13/2024 06:55 AM EST History and Physical Notes * HPI (History of Present Illness) Category Sub-Category Detail Notes Category Not es HPI Patient is here today for Pt is here today for a 4 week f/u on her weight loss medication
--- OUTSIDE RECORDS SUMMARY | 2024-06-14 05:35 | XMS_ITS ---
Author Organization [facility] Address [address] [phone] Care Team Providers Care Coordinator Mining Products Name Role Phone Shalom Mercado Primary Care Provider [phone] Allergies Allergen (clinical drug ingredient) Drug/Non Drug [...] Provider Diagnosis [facility] [address] [facility] [address] [place] [phone] 06/14/2024 Shalom Mercado Depression with anxiety F41.8 [...] * CELE CIFUENTESOB:1965 ( 59 yo F)Acc No.[id number]:06/14/2024 Progress Notes Patient: MARYANNE MONGE Provider: Shalom Mercado M.D. :1965 A ge:59 Y S ex:Female Date:06/14/2024 Address:[address] [place], [place] [id number] Subjective: * Chief Complaints: * 1 [...] * Images: Billing Information: * Visit Code: 45870 Office Visit, Est Pt., Level 3. * Procedure Codes: 3074F SYST BP LT 130 MM HG. 3078F DIAST BP < 80 MM HG. * Electronic signature of Shalom Mercado MD on 02/10/2025 at 06:55 AM EST Sign off status: Pending * Provider: Shalom Mercado M.D. Date: 0 06/14/2024 Generated for Denia quinonez/Crow/Isaiahransmitting on: 1 04/13/2024 06:55 AM EST History and Physical Notes * Examination Category Sub-Category Detail Notes Category Not es Psychology Affect seems ap propriate. Eye contact is normal.
--- OUTSIDE RECORDS SUMMARY | 2025-01-12 10:30 | XMS_ITS ---
Author Organization [facility] Address [address] [phone] Care Team Providers Care Quality Assurance Intern Name Role Phone Shalom Mercado Primary Care Provider Allergies Allergen (clinical drug ingredient) Drug/Non Drug Allergy documented on EMR Reaction Allergy Type Onset Date Status bupropion Wellbutrin XL swelling Drug Allergy Act maddie Results Component Value Reference Range Notes H-Lipid Panel Reviewed date:01/16/2025 09:18:46 PM Interpretation:LDL 54 Performing Lab: Notes/Report: Patient Fasting? Y TRIG 75 30-150 mg/dl CHOL 118 140-200 mg/dl DLDL 54.14 100-129 mg/dL VLDL 15 0-40 mg/dL HDL 60 40-60 mg/dl CHLHDL 2.0 1-3.5 H-CMP Reviewed date:01/16/2025 09:18:46 PM Interpretation:normal Performing Lab: Notes/Report: NA 137 136-145 mmol/L K 3.8 3.5-5.1 mmoL/L CL 104 98-107 mmol/L CO2 28 22.0-30.0 mmol/L GAP 8.8 5-15 mEq/L BUN 14 7-17 mg/dl CREATT 0.80 0.52-1.04 mg/dl GFRAA 89 >60 ML/MIN EGFR 74 >60 ml/min GLU 88 74-100 mg/dl CA 9.9 8.4-10.2 mg/dl BILIT 0.5 0.2-1.3 mg/dl AST 31 14-36 U/L ALT 27 12-78 U/L TP 7.8 6.3-8.2 g/dl ALB 4.7 3.5-5.0 g/dl GLOB 3.1 1.3-3.2 g/dL AGRATIO 1.5 1.1-1.8 ALP 79 38-126 U/L REASON FOR VISIT Physical, Needs labs & colon cancer screening Medications Medication SIG (Take, Route, Frequency, Duration) Notes Start Date End Date Status Zepbound 2.5 MG/0.5ML 0.5 ml Subcutaneou s weekly; Duration: 30 day(s) 03/14/2024 Not-Taking Nasacort Allergy 24HR 55 MCG/ACT 1 spray in each nostril Nasally Two times a day Active Levocetirizine Dihydrochloride 5 MG 1 tablet in the evening Orally Once a day; Duration: 90 days Active Fluconazole 150 MG 1 tablet Orally one time; Duration: 1 days 08/18/2024 Active Wegovy 0.25 MG/0.5ML 0.5 mL Subcutaneous once a week 03/21/2024 Not-Taking Ketotifen Fumarate 0.035 % 1 drop into a ffected eye Ophthalmic As needed Active Venlafaxine HCl ER 75 MG 1 capsule with food Orally Once a day Active Trulance 3 mg 1 tablet orally once a day Active PROPANOLOL 20mg 1 tab(s) oral once daily Active Rosuvastatin Calcium 10 MG 1 tablet Oral ly Once a day Active Vital Signs Blood pressure systolic 128 mm Hg 01/13/20 25 Blood pressure diastolic 80 mm Hg 025 Heart Rate 72 /min 01/12/2025 Height 66 in 01/12/2025 Weight 193 lbs 01/12/2025 BMI 31.15 kg/m2 01/12/2025 Encounters Encounter Location Date Provider Diagnosis [facility] [address] [facility] [address] [place], [place] [phone] 01/12/2025 R Britton Mercado Dyslipidemia E78.5 ; Cardiac dysrhythmia I49.9 ; Depression with anxiety F41.8 and Constipation K59.00 Assessments Encounter Date Diagnosis (ICD Code) Assessment Notes Treatment Notes Treatment Clinical Notes Section Notes 01/12/2025 Dyslipidemia (ICD-10 - E78.5) 01/12/2025 Cardiac dysrhythmia (ICD-10 - I49.9) 01/12/2025 Depression with anxiety (ICD-10 - F41.8) 01/12/2025 Constipation (ICD-10 - K59.00) Plan Of Treatment Medication Medication Name Sig Start Date Stop Date Notes Venlafaxine HCl ER 75 MG 1 capsule with food Orally Once a day Trulance 3 mg 1 tablet orally once a day PROPANOLOL 20mg 1 tab(s) oral once daily Rosuvastatin Calcium 10 MG 1 tablet Orally Once a day Next Appt Details Follow Up: 6 Months, Reason: Progress Notes * CELE CIFUENTESOB:1965 ( 59 yo F)Acc No.[id number]:01/12/2025 Physical Patient: DOMINIQUE MONGE Provider: Shalom Mercado M.D. :1965 A ge:59 Y S ex:Female Date:01/12/2025 Address:[address] [place] [address] [id number] Subjective: * Chief Complaints: * 1 . Physical. 2. Needs labs & colon cancer screening. * HPI: H PI: She comes in for scheduled checkup and is also in need of a employment physical for [employer]. Interim history is reviewed and she has no new concerns. * ROS: D ERMATOLOGY: no R parish. n o H ray. G ASTROENTEROLOGY: no N ausea. n o V omiting. n o D iarrhea.? U ROLOGY: no D ifficulty urinating. n [...] Nasally Two times a day , Taking Rosuvastatin Calcium 10 MG Tablet 1 tablet Orally Once a day , Taking PROPANOLOL 20mg 1 tab(s) oral once daily , Taking Fluconazole 150 MG Tablet 1 tablet Orally one time , Taking Levocetirizine Dihydrochloride 5 MG Tablet 1 tablet in the evening Orally Once a day , Taking Trulance 3 mg Tablet 1 tablet orally once a day , Taking Venlafaxine HCl ER 75 MG Capsule Extended Release 24 Hour 1 capsule with food Orally Once a day , Not-Taking Zepbound 2.5 MG/0.5ML Solution Auto-injector 0.5 ml Subcutaneous weekly , Not-Taking Wegovy 0.25 MG/0.5ML Solution Auto-injector 0.5 mL Subcutaneous once a week , Medication List reviewed and reconciled with the patient * Allergies: W ellbutrin XL: swelling. Objective: * Vitals: W t: 193, Temp: 97.8, BP: 128/80, HR: 72, O2 Sat: 97% on RA, Nurse: ky, Ht: 66, Visual Acuity: Left eye:20/15, Right eye:20/15, Both eyes:20/13, BMI:31.15. * Examination: C ardiology: General Appearance: p leasant, NAD. H EENT: s clera and conjunctiva clear, PERRLA, TM's normal, translucent. C arotid upstroke: n ormal, no bruits. H eart sounds: R RR, normal S1, S2. M urmur, click , gallop: n one. L ungs: clear, no rales or wheezes. A bdomen: p ositive BS, soft, nontender. E xtremities:?no leg edema. Assessment: * Assessment: 1. D yslipidemia - E78.5 (Primary) 2 . C ardiac dysrhythmia - I49.9 ? 3 . D epression with anxiety - F41.8 4 . C onstipation - K59.00? Plan: * Treatment: 2. C ardiac dysrhythmia Continue PROPANOLOL, 20mg, 1 tab(s), oral, once daily. 3. D epression with anxiety Continue Venlafaxine HCl ER Capsule Extended Release 24 Hour, 75 MG, 1 capsule with food, Orally, Once a day. 4. C onstipation Continue Trulance Tablet, 3 mg, 1 tablet, orally, once a day. * Labs: * L ab: H-Lipid Panel (Collection Date & Time - 01/13/2025 06:57 AM) L DL 54 Value Reference Range T RIG 75 30-150 - mg/dl * C HOL 118 L 140-200 - mg/dl * D LDL 54.14 L 100-129 - mg/dL * V LDL 15 0-40 - mg/dL * H DL 60 40-60 - mg/dl * C HLHDL 2.0 1-3.5 - * Shalom Mercado 01/16/2025 09:18:35 PM EST > See phone encounter ?Lab: H-CMP (Collection Date & Time - 01/13/2025 06:57 AM)?normal* Value Reference Range N A 137 136-145 - mmol/L * K 3.8 3.5-5.1 - mmoL/L * C L 104 98-107 - mmol/L * C O2 28 22.0-30.0 - mmol/L * G AP 8.8 5-15 - mEq/L * B UN 14 7-17 - mg/dl * C REATT 0.80 0.52-1.04 - mg/dl * G FRAA 89 >60 - ML/MIN * E GFR 74 >60 - ml/min * G VIVIAN 88 74-100 - mg/dl * C A 9.9 8.4-10.2 - mg/dl * B ILIT 0.5 0.2-1.3 - mg/dl * A ST 31 14-36 - U/L * A LT 27 12-78 - U/L * T P 7.8 6.3-8.2 - g/dl * A LB 4.7 3.5-5.0 - g/dl * G LOB 3.1 1.3-3.2 - g/dL * A GRATIO 1.5 1.1-1.8 - * A LP 79 38-126 - U/L * Shalom Mercado 01/16/2025 09:18:35 PM EST > See phone encounter * Procedure Codes: 1 036F TOBACCO NON-USER, 3074F SYST BP LT 130 MM HG, 3079F DIAST BP 80-89 MM HG * Follow Up: 6 Months * Images: Billing Information: * Visit Code: 52784 Office Visit, Est Pt., Level 4. * Procedure Codes: 1036F TOBACCO NON-USER. 3074F SYST BP LT 130 MM HG. 3079F DIAST BP 80-89 MM HG. * Electronic signature of Shalom Mercado MD on 02/10/2025 at 06:55 AM EST Sign off status: Pending * Provider: Shalom Mercado M.D. Date: 03/14/2024 Generated for Denia quinonez/Crow/Augustitting on: 04/13/2024 06:55 AM EST History and Physical Notes * Examination Category Sub-Category Detail Notes Category Not es Cardiology Lungs: clear, no rales or wheezes HEENT: sclera and conjuncti va clear, PERRLA, TM's normal, translucent Heart sounds: RRR, normal S1, S2 Abdomen: positive BS, soft, n ontender Carotid upstroke: normal, no bruits Extremities: no leg edema Murmur, click , gallop: none General Appearance: pleasant, NAD
--- OUTSIDE RECORDS SUMMARY | 2025-02-10 06:55 | XMS_ITS | Encounter Summary ---
Author Organization [employer] ([place], [place], [place], [place], [place]) Address [address] [place] [address] Care Team Providers Care Vertica Architect Name Role Phone Unavailable Primary Care Provider Unavailabl e Encounter Details Date Type Department Care Team (Late st Contact Info) Description 03/10/2021 Transcribed Document [facility] [place] [facility] [place] [address] ProviderSteve MD [address] [place] [address] Social History Tobacco Use Types Packs/Day Years [...] - Historical ProviderMD - 03/10/2021 10:58 AM SUPERVISOR VAT HOUSE Stroke/Warfarin Instructions Entered On: 03/10/2021 10:58 EST Performed On: 03/10/2021 10:58 EST by DENY LAWTON RN Stroke/Warfarin Instructions Stroke/TIA Discharge Ins : N/A Warfarin Discharge Ins : N/A DENY LAWTON RN - 03/10/2021 10:58 EST Electronically signed by Mónica [facility] Conversion Ironworker Apprentice Venancio at 06/10/2022 1:39 PM CDT documented in this encounter Plan of Treatment Not on file documented as of this encounter Visit Diagnoses Not on filedocumented in this encounter
--- OUTSIDE RECORDS SUMMARY | 2025-02-10 06:55 | XMS_ITS | Encounter Summary ---
Author Organization [employer] ([place], [place], [place], [place], [place]) Address [address] [place] [address] Care Team Providers Care Transferrer Name Role Phone Unavailable Primary Care Provider Unavailabl e Encounter Details Date Type Department Care Team (Late st Contact Info) Description 03/10/2021 Transcribed Document [facility] [place] [facility] [place] [address] ProviderSteve MD [address] [place] [address] Social History Tobacco Use Types Packs/Day [...] - Historical ProviderMD - 03/10/2021 11:02 AM PARK ACTIVITIES COORDINATOR Nursing Discharge Summary Entered On: 03/10/2021 11:03 [...] 03/10/2021 11:02 EST Electronically signed by Mónica [facility] Conversion Jumbo Operator Cerner at 06/10/2022 1:18 PM CDT documented in this encounter Plan of Treatment Not on file documented as of this encounter Visit Diagnoses Not on filedocumented in this encounter
--- OUTSIDE RECORDS SUMMARY | 2025-02-10 06:55 | XMS_ITS | Encounter Summary ---
Author Organization [employer] ([place], [place], [place], [place], [place]) Address [address] [place] [address] Care Team Providers Care Photographic Reproduction Technician Name Role Phone Unavailable Primary Care Provider Unavailabl e Encounter Details Date Type Department Care Team (Late st Contact Info) Description 03/10/2021 Transcribed Document [facility] [place] [facility] [place] [address] ProviderSteve MD [address] [place] [address] Social History Tobacco Use Types Packs/Day [...] - Steve ProviderMD - 03/10/2021 10:46 AM SUSTAINABILITY COACH [address] , [place] [address] Patient Copy Patient Information: Name: MARYANNE CIFUENTES Current Date: 03/10/2021 10:46:25 : 1965 Patient Address: [address] [id number] Patient Attending Physician: LINDSAY PALMA MD-MILES Primary Care Provider: YOKO LOYD DR Primary Care Provider Discharge Diagnosis: Abnormal electroencephalogram (EEG); Nonepileptic episode Weight on Admission: 205 lb, 0 oz Comment: Follow-up Instructions: With: Address: When: Argenis Vyas [address] [place] [id number] Business (1) Within 3 months Discharge Instructions: [...] Assistance with quitting is available by contacting 2-377-FBJA-NOW. This is a free resource providing counseling, [...] Be sure to sign up for the [employer] patient portal, which gives you 15/09 access to your medical information ??? including these discharge instructions ??? using your computer, smartphone, or tablet. Just go to [employer]Kaaz to get started. Questions? Call . [facility] would like to thank you for allowing us to assist you with your healthcare needs. VANE Alexander DAWN ELIZABETH, (or dealer compliance representative) have received the above patient education materials/instructions and have verbalized understanding: Patient Signature _ Date/Time Patient Row Boss Hoeing Signature (if needed) Date/Time Clinician/Hospital Row Boss Hoeing Signature (if needed) Date/Time Electronically signed by Mónica [facility] Conversion Commercial Loan Processor Cerner at 06/10/2022 1:25 PM CDT documented in this encounter Plan of Treatment Not on file documented as of this encounter Visit Diagnoses Not on filedocumented in this encounter
--- OUTSIDE RECORDS SUMMARY | 2025-02-10 06:55 | XMS_ITS | Encounter Summary ---
Author Organization [employer] ([place], [place], [place], [place], [place]) Address [address] [place] [address] Care Team Providers Care Housekeeping Staff Name Role Phone Unavailable Primary Care Provider Unavailabl e Encounter Details Date Type Department Care Team (Late st Contact Info) Description 03/11/2021 Transcribed Document [facility] [place] [facility] [place] [address] ProviderSteve MD [address] [place] [address] Social History Tobacco Use Types Packs/Day [...] Steve Faust MD - 03/11/2021 8:26 AM TANNING DRUM OPERATOR DATE OF SERVICE: 03/10/2021 REPORT TYPE: EEG REFERRING PHYSICIAN: Anamaria Jacob MD REPORT TITLE: Video Electroencephalogram Report STUDY DURATION: 5 hours. HISTORY: This is a 55-year-old woman being evaluated for recurrent seizures. EEG VIDEO MONITORING METHODOLOGY: Time-locked EEG-video monitoring was performed using the 32-channel [employer] monitoring system. The seizure detection computer was [...] of potential epileptogenicity in the temporal regions. /[id number] MD ORESTES Ibarra/JACQUI / TAF / MODL /[id number] Electronically signed by Mónica [facility] Conversion Geothermal Production Manager Cerner at 06/10/2022 1:13 PM CDT documented in this encounter Plan of Treatment Not on file documented as of this encounter Visit Diagnoses Not on filedocumented in this encounter
--- OUTSIDE RECORDS SUMMARY | 2025-02-10 06:55 | XMS_ITS | Clinical Summary ---
Author Organization [employer] ([place], [place], [place], [place], [place]) Address [address] [place] [address] Care Team Providers Care Sparker And Patcher Name Role Phone Unavailable Primary Care Provider [...]
--- OUTSIDE RECORDS SUMMARY | 2025-02-10 06:55 | XMS_ITS | Encounter Summary ---
Author Organization [employer] ([place], [place], [place], [place], [place]) Address [address] [place] [address] Care Team Providers Care Peripatologist Name Role Phone Unavailable Primary Care Provider Unavailabl e Encounter Details Date Type Department Care Team (Late st Contact Info) Description 03/10/2021 Transcribed Document [facility] [place] [facility] [place] [address] ProviderSteve MD [address] [place] [address] Social History Tobacco Use Types Packs/Day [...] Steve Faust MD - 03/10/2021 11:03 AM DIRECTOR OF QUANTITATIVE RESEARCH [facility] [place] [address] MARYANNE CIFUENTES :1965 Visit Time:03/08/2021 [...] up appointment Where: [address] [place] [address] [employer] (1) Medications What How Much When Instructions [...] these instructions at home: Medicines ??? Take rbxo-aim-yfmsxsw and prescription medicines only as told by [...] medicines are used to treat seizures. Take inpi-duo-xdflybm and prescription medicines only as told by your doctor. This information is not intended to replace advice given to you by your health care provider. Make sure you discuss any questions you have with your health care provider. Document Revised: 08/17/2020 Document Reviewed: 08/17/2020 [employer] Patient Education ?? 2020 [employer] Emergency Awareness and Preventative Care STROKE [...] Assistance with quitting is available by contacting 4-569-HQRRNOW. This is a free resource providing counseling, support, and referral. Or you may contact your personal physician. Tome Suicide Prevention Lifeline: The National Suicide Prevention [...] was given the opportunity to ask questions. Patient/Track Grinder Name: Patient/Track Grinder Signature: Relationship to Patient: Clinician/Hospital Track Grinder Signature: Date: Electronically signed by Mónica, [facility] Conversion Andre Craft at 06/10/2022 1:28 PM CDT documented in this encounter Plan of Treatment Not on file documented as of this encounter Visit Diagnoses Not on filedocumented in this encounter
--- OUTSIDE RECORDS SUMMARY | 2025-02-10 06:55 | XMS_ITS | Encounter Summary ---
Author Organization [employer] ([place], [place], [place], [place], [place]) Address [address] [place] [address] Care Team Providers Care Director Information Name Role Phone Unavailable Primary Care Provider Unavailabl e Encounter Details Date Type Department Care Team (Late st Contact Info) Description 03/10/2021 Transcribed Document [facility] [place] [facility] [place] [address] ProviderSteve MD [address] [place], [place] [id number] Social History Tobacco Use Types Packs/Day Years [...] Conversion Note - Steve ProviderMD - 03/10/2021 12:21 PM WHITE SUGAR SYRUP OPERATOR Initial Discharge Planning Entered On: 03/10/2021 [...] Decision Maker Class : self MARILU FRAGOSO Biophysics Professor - 03/10/2021 12:21 EST Initial Assessment II Sensory and Motor Deficits : None Current Home Treatments and Equipment : None MARILU FRAGOSO Biophysics Professor - 03/10/2021 12:21 EST Discharge Needs I Anticipated Discharge Date : 03/10/2021 EST Anticipated Discharge To, CM : Home with family care Current Home Treatment/Equipment : Current Home Treatment/Equipment No qualifying data available. Post Acute/Home Treatments : None Documentation Status Complete : Yes MARILU FRAGOSO Biophysics Professor - 03/10/2021 12:21 EST Discharge Needs II Professional Skilled Services : Professional Skilled Services No qualifying data available. MARILU FRAGOSO Biophysics Professor - 03/10/2021 12:21 EST Narrative Note Narrative Note : Pt admitted for seizures and is discharging home today with her with no needs. MARILU FRAGOSO Biophysics Professor - 03/10/2021 12:21 EST documented in this encounter Plan of Treatment Not on file documented as of this encounter Visit Diagnoses Not on filedocumented in this encounter
--- OUTSIDE RECORDS SUMMARY | 2025-02-10 06:55 | XMS_ITS | Encounter Summary ---
Author Organization [employer] ([place], [place], [place], [place], [place]) Address [address] [place] [address] Care Team Providers Care Boring And Filling Machine Operator Name Role Phone Unavailable Primary Care Provider Unavailabl e Encounter Details Date Type Department Care Team (Late st Contact Info) Description 03/10/2021 Transcribed Document [facility] [place] [facility] [place] [address] ProviderSteve MD [address] [place] [address] Social History Tobacco Use Types Packs/Day [...] Steve Faust MD - 03/10/2021 9:20 AM PAYROLL SUPERVISOR DATE OF SERVICE: 03/09/2021 REPORT TYPE: EEG REFERRING PHYSICIAN: Anamaria Jacob MD REPORT TITLE: Video Electroencephalogram Report STUDY DURATION: One day. HISTORY: This is a 55-year-old woman, being evaluated for seizures. EEG VIDEO MONITORING METHODOLOGY: Time-locked EEG-video monitoring was performed using the 32-channel [employer] monitoring system. The seizure detection computer was [...] potential epileptogenicity in the right temporal region. /[id number] MD ORESTES Ibarar/AQ / TAF / MODL /[id number] documented in this encounter Plan of Treatment Not on file documented as of this encounter Visit Diagnoses Not on filedocumented in this encounter
--- OUTSIDE RECORDS SUMMARY | 2025-02-10 06:56 | XMS_ITS | Clinical Summary ---
[facility] Address [address] [place] [id number] Care Team Providers Care Plating Operator Name Role Phone Jagruti Guzman APRN Primary [...] to Health Maintenance Insurance R Care Teams Plating Operator Relationship Specialty Start Date End Date Jagruti Guzman APRN [address] [place] [id number] PCP - General Family Medicine 10/23/15
--- OUTSIDE RECORDS SUMMARY | 2025-02-10 06:56 | XMS_ITS | Clinical Summary ---
Author Organization Healthcare Address [place] [address] Care Team Providers Care Transit Driver Name Role Phone Pcp, No Primary Care [...] EDT Ovarian Cancer Screening [facility] Gynecology [address] [facility], [address] [place] [address] Health Maintenance Due Date Last Done Comments [facility]-Depression Screening 1965 [facility]-HIV Screening 1965 [facility]-Hepatitis C Screening 1965 [facility]-Infant/Child/Adol SDOH Screenings 1965 [facility]-Obesity Intervention 1972 [facility]- SDOH Screenings 1984 [facility]-Adult SDOH Screenings 1984 [facility]-Hepatitis B Vaccines (3 of 3 - 19+ 3-dose series) 03/18/1989 01/21/1989, 12/17/1988, 06/17/1988 CT Colonography 06/08/2011 Colonoscopy 06/08/2011 FIT-DNA 06/08/2011 FIT 06/08/2011 FOBT 06/08/2011 Sigmoidoscopy 06/08/2011 [facility]-Colorectal Cancer Screening 06/08/2011 [facility]-Pneumococcal Vaccine: 50+ Years (1 of 1 - PCV) 2016 [facility]-Breast Cancer Screening 01/01/2020 11/09/2017, 12/31/2017, 11/14/2016, Additional history exists [facility]-Pap Smear 02/18/2021 02/18/2018, 06/24, 09/06/2014, Additional history exists [facility]-Cervical Cancer Screening 02/18/2023 [facility]-HPV/Cotest 02/18/2023 02/18/2018, 06/24, 09/06/2014, Additional history exists [facility]IO-OSUCL-05 Vaccine ( season) 2024 08/10/2021, 03/23/2020, 02/22/2020 [facility]-Influenza Vaccine (#1) 2024 12/07/2023 [facility]-DTaP,Tdap,and Td Vaccines (2 - Td or Tdap) 10/06/2027 10/05/2017 [facility]-Hepatitis A Vaccines Aged Out 019, 05/12/2018, 02/11/2018 No longer eligible based on patient's age to complete this topic [facility]-Zoster Vaccines Completed 08/12/2018, 8 HPV Vaccines (No Doses Required) Completed [facility]-HIB Vaccines Aged Out No longer e [...] Narrative SUNQUEST - 02/26/2018 1:34 PM EST [facility] MR #: [id number] [facility] MARYANNE CIFUENTES [place], [place] [address] 1965 (Age: 52) FW Collect Date: 02/18/2018 00:00 Receipt Date: 02/19/2018 09:11 Page 1 DEPARTMENT OF PATHOLOGY AND LABORATORY MEDICINE CYTOPATHOLOGY REPORT Email: [email or web address] [phone] ATTENDING MD/Practitioner: Magy Guzman APRN Service: [facility] Reported: 02/26/2018 13:34 Collected: 02/18/2018 00:00 INTERPRETATION A. THIN PREP (CERVICAL/VAGINAL): HIGH GRADE SQUAMOUS INTRAEPITHELIAL LESION. SATISFACTORY FOR EVALUATION; ENDOCERVICAL/ TRANSFORMATION ZONE COMPONENT PRESENT. Slide scanned and imaged by [employer] S[employer] ThinPrep Imaging System with manual review of [...] results is suggested (please call Microbiology at [phone] for results). CLINICAL INFORMATION: Menstrual History: Post-menopausal Date of Last Menstrual Period: {Not Provided} Other Clinical Conditions: If ASCUS and > 24 years of age, HPV/DNA testing requested. Patient has a history of previous abnormal pap: ASCUS SPECIMEN DESCRIPTION: A: THIN PREP (CERVICAL/VAGINAL) THIN PREP PROCESS CELLULAR ENHANCEMENT ICD: R87.613 High grade intrepith lesion cyto smr crvx (HGSIL) F: A; DX IMAGE 26302, 23155 C\V (PO) SNOMED CODES: A; [id number] M-[id number] M-85939 In cases where a pathologist has signed out the report, the service has been rendered in part by a resident. The signing pathologist has performed and is responsible for the reported pathologic evaluation. Jagruti Guzman APRN LAB PATHOLOGY ORDERABLES [facility] Result SUNQUEST from Last 3 Months or Most Recently Relevant to Health Maintenance Insurance [employer] Care Teams Transit Driver Relationship Specialty Start [place] [address] PCP - General Family Medicine 09/15/22
--- OUTSIDE RECORDS SUMMARY | 2025-02-10 06:56 | XMS_ITS | Encounter Summary ---
Author Organization [employer] ([place], [place], [place], [place], [place]) Address [address] [place] [address] Care Team Providers Care Gasoline Locomotive Crane Operator Name Role Phone Unavailable Primary Care Provider Unavailabl e Encounter Details Date Type Department Care Team (Late st Contact Info) Description 03/09/2021 Transcribed Document [facility] [place] [facility] [place] [address] ProviderSteve MD [facility] [place] [address] Social History Tobacco Use Types [...] - Steve ProviderMD - 03/09/2021 11:03 AM WINDOW CUTTER Patient: MARYANNE CIFUENTES Age: 55 years Sex: [...] EST Height Source Stated Height Entry Format [place] Height/Length, BHUTANESE (ft) 5 ft Height/Length BHUTANESE 8 Inch CLINICALHEIGHT 172.72 cm [place] Body Weight 63 kg Weight Source Bed scale Weight Entry Format [place] Weight Pakistani lb 205 lb CLINICALWEIGHT 93.18 kg Body [...]
--- OUTSIDE RECORDS SUMMARY | 2025-02-10 06:56 | XMS_ITS | Encounter Summary ---
Author Organization [employer] ([place], [place], [place], [place], [place]) Address [address] [place] [address] Care Team Providers Care Shove Up Name Role Phone Unavailable Primary Care Provider Unavailabl e Encounter Details Date Type Department Care Team (Late st Contact Info) Description 03/09/2021 Transcribed Document [facility] [place] [facility] [address] ProviderSteve MD [address] [place] [address] Social History Tobacco Use Types Packs/Day [...] Steve Faust MD - 03/09/2021 8:50 AM REGULATORY AFFAIRS PORTFOLIO LEADER DATE OF SERVICE: 03/08/2021 REPORT TYPE: EEG REFERRING PHYSICIAN: Anamaria Jacob MD REPORT TITLE: Video Electroencephalogram Report STUDY DURATION: One day. HISTORY: This is a 55-year-old woman, being evaluated for recurrent seizures. EEG VIDEO MONITORING METHODOLOGY: Time-locked EEG-video monitoring was performed using the 32-channel [employer] monitoring system. The seizure detection computer was [...] of potential epileptogenicity in the temporal regions. /[id number] MD ORESTES Ibarra/JACQUI / TAF / MODL /[id number] documented in this encounter Plan of Treatment Not on file documented as of this encounter Visit Diagnoses Not on filedocumented in this encounter
--- OUTSIDE RECORDS SUMMARY | 2025-02-10 06:56 | XMS_ITS | Encounter Summary ---
Author Organization [employer] ([place], [place], [place], [place], [place]) Address [address] [place] [address] Care Team Providers Care Hvac Service Tech Name Role Phone Unavailable Primary Care Provider Unavailabl e Encounter Details Date Type Department Care Team (Late st Contact Info) Description 03/08/2021 Transcribed Document [facility] [place] [facility] [place] [address] ProviderSteve [place] [address] Social History Tobacco Use Types [...] - Historical Provider, - 03/08/2021 1:16 PM FOREMAN/PROJECT MANAGER Admission History, Adult Entered On: 03/08/2021 13:19 [...] No Current Home Treatments : None Carolynn Avial RN - 03/08/2021 13:16 EST General Info Want Family/Rep/Phys Notified of Admit : No Emergency Contact #1 : Thom Kohler Emergency Contact #1 Emergency Contact #1 Relationship : Emergency Contact #2 : N/A Emergency Contact #2 Phone Number : . Emergency Contact #2 Relationship : . Primary Language : Lithuanian Communication Barrier : None High School Math Teacher Needed : No Carolynn Avila RN - [...] Scale Risk Level : 0-24 Low Risk [place] Fall Interventions : Adequate lighting Barriers to [...] Source : Stated Height Entry Format : [place] Height, Feet : 5 ft(Converted to: 152 cm, 60 Inch) Height, Inches : 8 Inch(Converted to: 0 ft 8 Inch, 20.32 cm) Clinical Height : 172.72 cm Weight Source : Bed scale Weight Entry Format : [place] Clinical Dosing Weight : 93.18 kg Weight, Pounds : 205 lb Body Surface Area (BSA) : 2.07 m2 Body Mass Index : 31.2 kg/m2 (HI) [place] Body Weight : 63 kg Carolynn Avila [...] Carolynn Avila RN - 03/08/2021 13:16 EST [place] Suicide Severity Rating Scale (C-SSRS) CSSRS Past [...] - 03/08/2021 13:16 EST Electronically signed by [facility], [facility] Conversion Senior Trial Attorney Cerner at 06/10/2022 1:39 PM CDT documented in this encounter Plan of Treatment Not on file documented as of this encounter Visit Diagnoses Not on filedocumented in this encounter
--- OUTSIDE RECORDS SUMMARY | 2025-02-10 06:56 | XMS_ITS | Encounter Summary ---
Author Organization [employer] ([place], [place], [place], [place], [place]) Address [address] [place] [address] Care Team Providers Care Manager Respiratory Name Role Phone Unavailable Primary Care Provider Unavailabl e Encounter Details Date Type Department Care Team (Late st Contact Info) Description 03/09/2021 Transcribed Document [facility] [place] [address] ProviderSteve MD [address] [place], [place] [phone] Social History Tobacco Use Types Packs/Day Years [...] - Historical ProviderMD - 03/09/2021 10:47 AM WALLPAPER PRINTER UM Authorization Entered On: 03/09/2021 10:47 EST Performed On: 03/09/2021 10:47 EST by HEIDI NIETO RN Primary Insurance Authorization Authorization and Policy Numbers : Insurance 1 Health Plan: [employer] Policy Number: [id number] Authorization Number: Insurance 2 Health Plan: ANTHEM HMOPPO Policy Number: [id number] Authorization Number: Insurance Primary Name : [employer] Policy Number: [id number] Historical Authorization Comments-Primary : No Authorization Comments Found HEIDI NIETO RN - 03/09/2021 10:47 EST documented in this encounter Plan of Treatment Not on file documented as of this encounter Visit Diagnoses Not on filedocumented in this encounter
--- OUTSIDE RECORDS SUMMARY | 2025-02-10 06:56 | XMS_ITS | Encounter Summary ---
Author Organization [employer] ([place], [place], [place], [place], [place]) Address [address] [place] [address] Care Team Providers Care Oracle Soa Consultant Name Role Phone Unavailable Primary Care Provider Unavailabl e Encounter Details Date Type Department Care Team (Late st Contact Info) Description 03/10/2021 Transcribed Document [facility] [place] Medicine [facility] [place] [address] ProviderSteve [place] [address] Social History Tobacco Use Types [...] - Steve ProviderMD - 03/10/2021 12:22 PM REFINER OPERATOR Final Discharge Planning Entered On: 03/10/2021 12:22 EST Performed On: 03/10/2021 12:22 EST by MARILU FRAGOSO Shield Operator Final Discharge Planning Discharge Arrangements : Patient Post-Acute Information Patient Name: MARYANNE CIFUENTES Gender: Female : [birth year] Age: 55 Years No Post-Acute Placement(s) Listed No Post-Acute Service(s) Listed No [place] Referral(s) Listed Discharge To Care Management : Home/Residential/Shelter or Self Care -01 MARILU FRAGOSO Shield Operator - 03/10/2021 12:22 EST documented in this encounter Plan of Treatment Not on file documented as of this encounter Visit Diagnoses Not on filedocumented in this encounter
--- OUTSIDE RECORDS SUMMARY | 2025-02-10 06:56 | XMS_ITS | Referral Summary ---
Author Organization [employer] ([place], [place], [place], [place], [place]) Address [address] [place] [address] Care Team Providers Care Africana Studies Professor Name Role Phone Unavailable Primary Care Provider [...]
--- OUTSIDE RECORDS SUMMARY | 2025-02-10 06:56 | XMS_ITS | Encounter Summary ---
Author Organization [employer] ([place], [place], [place], [place], [place]) Address [address] [place] [address] Care Team Providers Care Tour Guide Name Role Phone Unavailable Primary Care Provider Unavailabl e Encounter Details Date Type Department Care Team (Late st Contact Info) Description 03/08/[address] [facility] [place] [address] ProviderSteve MD [address] [place] [address] Social History Tobacco Use Types Packs/Day Years [...] - Historical ProviderMD - 03/08/2021 12:10 PM HELP DESK REPRESENTATIVE Pain Assessment Entered On: 03/09/2021 10:40 EST [...]
--- OUTSIDE RECORDS SUMMARY | 2025-02-10 06:56 | XMS_ITS | Encounter Summary ---
Author Organization [employer] ([place], [place], [place], [place], [place]) Address [address] [place] [address] Care Team Providers Care Title 1 Tutor Name Role Phone Unavailable Primary Care Provider Unavailabl e Encounter Details Date Type Department Care Team (Late st Contact Info) Description 03/08/2021 Transcribed Document [facility] [place] Family Medicine [facility] [place] [address] ProviderSteve MD [address] [place], [place] [id number] Social History Tobacco Use Types Packs/Day Years [...] - Steve ProviderMD - 03/08/2021 11:40 AM DRYWALL METAL STUD WORKER Education-(VTE) / (DVT) Entered On: 03/08/2021 11:46 [...] Carolynn Avila RN - 03/08/2021 11:46 EST documented in this encounter Plan of Treatment Not on file documented as of this encounter Visit Diagnoses Not on filedocumented in this encounter
--- OUTSIDE RECORDS SUMMARY | 2025-02-10 06:56 | XMS_ITS | Patient Health Record ---
Author Organization [facility] Address [address] [id number] Care Team Providers Care Sheriffs Officer Name Role Phone Shalom Mercado Primary Care Provider Tiffanei Carrasquillo Unavailable [phone] Allergies Allergen (clinical drug ingredient) Drug/Non Drug Allergy documented on EMR Reaction Allergy Type Onset Date Status bupropion Wellbutrin XL swelling Drug Allergy Act maddie Results Component Value Reference Range Notes Ultrasound : Head Reviewed date:03/15/2024 09:43:40 AM Interpretation: Performing Lab: Notes/Report: H-Lipid Panel Reviewed date:01/16/2025 09:18:46 PM Interpretation:LDL [...] AGRATIO 1.5 1.1-1.8 ALP 79 38-126 U/L Mammogram Reviewed date:03/17/2024 08:32:24 AM Interpretation: Performing [...] Status W/U Status Risk Notes Problem Constipation (36010699) Constipation (K59.00) Active confirmed Problem Cardiac dysrhythmia (796022066) Cardiac dysrhythmia (I49.9) Active confirmed Problem Mixed anxiety and depressive disorder (601320144) Depression with anxiety (F41.8) Active confirmed Problem Body mass index 30.00 to 34.99 (061677275559818) BMI 31.0-31.9,adult (Z68.31) Active confirmed Problem Body mass index 30.00 to 34.99 (731364741627333) BMI 34.0-34.9,adult (Z68.34) Active confirmed Problem Dyslipidemia (878534230) Dyslipidemia (E78.5) Active confirmed Problem Allergic rhinitis (72014971) Seasonal allergic rhinitis due to other allergic trigger (J30.89) Active confirmed Problem Somnolence (18484898) Has daytime drowsiness (R40.0) Active confirmed Problem Hypersomnia (86823608) Hypersomnolence (G47.10) Active confirmed Problem Cardiac arrhythmia (534978089) Bigeminy (I49.8) Active confirmed Problem Sialolithiasis (70561606) Salivary duct stone (K11.5) Active confirmed Vital Signs Heart Rate 72 /min 01/12/2025 Blood pressure diastolic 80 mm Hg 01/12/2025 Height 66 in 01/12/2025 Blood pressure systolic 128 mm Hg 01/12/2025 Weight 193 lbs 01/12/2025 BMI 31.15 kg/m2 01/12/2025 Encounters Encounter Location Date Provider Diagnosis [facility] [address] [place] [id number] 03/14/2024 Tiffanie Carrasquillo Lesion of oral mucos a K13.70 ; Salivary duct stone K11.5 ; Weight loss counseling, encounter for Z71.3 and Lesion of neck L98.9 [facility] [address] [place], [place] [id number] 04/11/2024 Tiffanie Carrasquillo BMI 34.0-34.9,adult Z68.34 [facility] [address] [place], [place] [id number] 06/14/2024 R Britton Rogelio Depression with anxiety F41.8 [facility] [address] [place], [place] [id number] 01/12/2025 R Britton Rogelio Dyslipidemia E78.5 ; Cardiac dysrhythmia I49.9 ; Depression with anxiety F41.8 and Constipation K59.00 [facility] [address] [place], [place] [id number] 03/17/2024 Tiffanie Sinhaond [facility] [address] [place], [place] [id number] 03/17/2024 R Britton Rogelio [facility] [address] [place], [place] [id number] 03/21/2024 Tiffanie Sinhaond [facility] [address] [place], [place] [id number] 06/22/2024 R Britton Rogelio [facility] [address] [place], [place] [id number] 06/28/2024 R Britton Rogelio Depression with anxiety F41.8 [facility] [address] [place], [place] [id number] 07/06/2024 R Britton Rogelio [facility] [address] [place], [place] [id number] 07/08/2024 R Britton Rogelio [facility] [address] [place], [place] [id number] 08/18/2024 R Britton Rogelio [facility] [address] [place], [place] [id number] 12/02/2024 R Britton Rogelio [facility] [address] [place], [place] [id number] 01/16/2025 Shalom Mercado Assessments Encounter Date Diagnosis (ICD Code) Assessment Notes Treatment Notes Treatment Clinical Notes Section Notes 03/14/2024 Salivary duct stone (ICD-10 - K11.5) [...] choices and portion sizes; antihistamines for itching 06/14/2024 Depression with anxiety (ICD-10 - F41.8) She will decrease her citalopram to half tablet daily for the next 2 weeks then discontinue while starting on the venlafaxine. 06/28/2024 Depression with anxiety (ICD-10 - F41.8) 01/12/2025 Dyslipidemia (ICD-10 - E78.5) 03/14/2024 Weight loss counseling, encounter for (ICD-10 [...] Test Name Order Date Strep Screen 09/13/2020 Insurance Providers Payer Name Payer Address Payer Phone Subscriber Number Group Number Insured Name Patient Relationship to Insured Coverage Start Date Coverage End Date DUSTIN CARVAJAL [employer] [address] [place] [address] [id number] DOMINIQUE CIFUENTES Self - patient is the insured Medical (General) History Medical History History ICD Code allergies fatigue Surgical History Surgery Date(Month/Year) tubal tonsilectomy uterine ablation C-scope - Case 2017
--- OUTSIDE RECORDS SUMMARY | 2025-02-10 06:56 | XMS_ITS | Encounter Summary ---
Author Organization [employer] ([place], [place], [place], [place], [place]) Address [address] [place] [address] Care Team Providers Care Translator Interpreter Name Role Phone Unavailable Primary Care Provider Unavailabl e Encounter Details Date Type Department Care Team (Late st Contact Info) Description 03/10/2021 Transcribed Document [facility] [place] [facility] [place] [address] ProviderSteve MD [address] [place] [phone] Social History Tobacco Use Types Packs/Day Years [...] - Historical ProviderMD - 03/10/2021 10:48 AM BILLET BED OPERATOR DATE OF ADMISSION: 03/08/2021 DATE OF [...] up with Dr. Vyas within 3 months. /[id number] MD ORESTES Ibarra/JACQUI / ORESTES / MODL /[id number] Electronically signed by Mónica [facility] Conversion Wire Technician Cerner at 06/10/2022 1:15 PM CDT documented in this encounter Plan of Treatment Not on file documented as of this encounter Visit Diagnoses Not on filedocumented in this encounter
--- OUTSIDE RECORDS SUMMARY | 2025-02-10 06:56 | XMS_ITS | Encounter Summary ---
Author Organization [employer] ([place], [place], [place], [place], [place]) Address [address] [place] [address] Care Team Providers Care Pelletizer Operator Name Role Phone Unavailable Primary Care Provider Unavailabl e Encounter Details Date Type Department Care Team (Late st Contact Info) Description 03/08/2021 Transcribed Document [facility] [place] [facility] [place] [address] ProviderSteve MD [address] [place], [place] [phone] Social History Tobacco Use Types Packs/Day Years [...] Steve Faust MD - 03/08/2021 1:42 PM ELECTRO MECHANICAL TECHNOLOGIST EPILEPSY ADMISSION NOTE DATE OF ADMISSION: 03/08/2021 [...] the upper and lower extremities. Coordination: Normal auwilg-wi-ehgk. IMPRESSION: Ms. Kohler has had episodic symptoms that include visual hallucinations out of sleep. She could have focal or partial onset seizures. Alternatively, her episodes may be nonepileptic in nature. PLAN: 1. Admit to the epilepsy monitoring unit. 2. Start video EEG monitoring. 3. Seizure precautions. 4. Continue home medications. /[id number] MD ORESTES Ibarra/JACQUI / ORESTES / MODL documented in this encounter Plan of Treatment Not on file documented as of this encounter Visit Diagnoses Not on filedocumented in this encounter
--- OUTSIDE RECORDS SUMMARY | 2025-02-10 06:57 | XMS_ITS | Encounter Summary ---
Author Organization [employer] ([place], [place], [place], [place], [place]) Address [address] [place] [address] Care Team Providers Care Business Analyst Consultant Name Role Phone Unavailable Primary Care Provider Unavailabl e Encounter Details Date Type Department Care Team (Late st Contact Info) Description 03/08/2021 Transcribed Document [facility] [place] [facility] [place] [address] ProviderSteve MD [address] [place] [address] Social History Tobacco Use Types Packs/Day Years [...] - Historical ProviderMD - 03/08/2021 12:15 PM ENGINEERING FACULTY MEMBER Neurodiagnostics Event Note Entered On: 03/08/2021 12:15 EST Performed On: 03/08/2021 12:15 EST by ALICE GLEASON Neurodiagnostic Tech Neurodiagnostics Event Note Neurodiagnostic Event Date/Time : 03/08/2021 12:15 EST Neurodiagnostic Event Location : Neurodiagnostic department Neurodiagnostic Event Details : Procedure completed ALICE GLEASON Neurohayesostic Tech - 03/08/2021 12:15 EST Electronically signed by Mónica [facility] Conversion Inspector Repairer [employer] Cerner at 06/10/2022 1:31 PM CDT documented in this encounter Plan of Treatment Not on file documented as of this encounter Visit Diagnoses Not on filedocumented in this encounter
--- OUTSIDE RECORDS SUMMARY | 2025-02-10 06:57 | XMS_ITS | Encounter Summary ---
Author Organization [employer] ([place], [place], [place], [place], [place]) Address [address] [place] [address] Care Team Providers Care Clerical Proofreader Name Role Phone Unavailable Primary Care Provider Unavailabl e Encounter Details Date Type Department Care Team (Late st Contact Info) Description 03/08/[address] [facility] [place] [facility] [place] [address] ProviderSteve MD [address] [place] [address] Social History Tobacco Use Types [...] - Historical ProviderMD - 03/08/2021 10:20 AM ASSEMBLY INSPECTOR Meds to Bed Enrollment Entered On: 03/08/2021 10:22 EST Performed On: 03/08/2021 10:20 EST by Andres Rasmussen Assistant To The Dean Cert Lead Meds to Bed Enrollment Patient Enrollment Decision: : Yes/enroll in meds to bed program Andres Rasmussen Assistant To The Dean Cert Lead - 03/08/2021 10:22 EST documented in this encounter Plan of Treatment Not on file documented as of this encounter Visit Diagnoses Not on filedocumented in this encounter
[2025-02-10 07:32] LABS: Hematocrit 42.8 % (37.0-47.0); Hemoglobin 14.4 g/dL (12.2-16.2); Immature Granulocytes % 0.2 %; Mean Corpuscular HGB Conc 33.6 g/dL (31.8-35.4); Mean Corpuscular Hemoglobin 30.1 pg (27.0-31.2); Mean Corpuscular Volume 89.4 fl (81-99); Nucleated Red Blood Cells % 0 %; Platelet Count 219 K/mm3 (142-424); Red Blood Count 4.79 M/mm3 (4.20-5.40); Red Cell Distribution Width-SD 41.6 fL; White Blood Count 4.7 K/mm3 (4.8-10.8)
[2025-02-10 09:38] LABS: Thyroid Stimulating Hormone 4.36 uIU/mL (0.465-4.68)
[2025-02-10 09:50] LABS: Iron 91 ug/dL (37-170)
[2025-02-10 09:57] LABS: Vitamin B12 365 pg/mL (239-931)
[2025-02-10 10:00] LABS: Total Iron Binding Capacity 332 ug/dL (265-497)
[2025-02-10 10:22] LABS: Folate 14.00 ng/mL
[2025-02-10 10:46] LABS: Ferritin 61.3 ng/ml (11.1-264)
[2025-02-12 11:12] LABS: Cortisol,AM 12.9 ug/dL (6.2-19.4)
== END 2025-02-10 23:59 | disposition home or self-care (01) ==
LOC: LAB 06:54
PROVIDERS: PCP Family Medicine; Visit Provider Physician Assistant
DX: E78.5 Hyperlipidemia, unspecified (principal); R73.9 Hyperglycemia, unspecified; I25.10 Atherosclerotic heart disease of native coronary artery without angina pectoris; I95.9 Hypotension, unspecified
CPT/HCPCS: 36415; 82533; 82607; 82728; 82746; 83540; 83550; 84443; 85025